=== PATIENT | female | born 1955 | race Two or more races ===

== ENCOUNTER 2017-03-14 16:26 | Inpatient (IN) | payer OTHER ==
[~2017-03-14] VITALS: Ht 121.9 cm; Wt 47.7 kg
[~2017-03-14 16:26] MED LIST: ASPI-482 PO; ASPI325T8 PO; ATOR20TA58 PO; CITA10TA8 PO; FERR-26 PO; HYDR-2758 PO; HYDR-923 PO; METH10TA2 PO; METO25TA4 PO; METO50TA6 PO; MIRT15TA3 PO; NITR0.4T22 SL; NYST100054 PO; OMEP20TA63 PO; OMEP40CA5 PO; PENI500T PO; RANI150T2 PO; SIMV10TA PO; SIMV10TA3 PO
--- NOTE | 2017-03-14 16:56 | PHYS DOC ---
Past Medical History Past Medical History: CAD, Hypertension Past Surgical History: Coronary Bypass Surgery Alcohol Use: None Drug Use: None Adult General Chief Complaint Chief Complaint: HYPERTENSION HPI HPI Patient is a 61 year old F who presents with nausea and vomiting and elevated blood pressure. Patient does not speak [place] Islander and family member is translating until we can find a ornamental plasterer helper. It appears last night she started having some increased nausea vomiting with elevated blood pressures with no fever. Patient denies any chest pain but does have a midline scar from what looks like her previous cardiac surgery. Patient denies any abdominal tenderness. It appears patient has no other complaints. Review of Systems Review of Systems Unable to obtain a review of systems secondary to patient's language barrier All other systems were reviewed and found to be within normal limits, except as documented in this note. Current Medications Current Medications Current Medications Medications (Trade) Dose Ordered Sig/Mily Start Time Stop Time Status Last Admin Dose Admin Clonidine HCl (Catapres) 0.2 mg 1X ONCE 03/14/17 17:00 03/14/17 17:01 DC 03/14/17 17:48 0.2 MG Ondansetron HCl (Zofran) 4 mg 1X ONCE 03/14/17 17:00 03/14/17 17:01 DC 03/14/17 18:11 4 MG Sodium Chloride 1,000 ml @ 1,000 mls/hr 1X ONCE 03/14/17 17:00 03/14/17 17:59 DC 03/14/17 18:11 1,000 MLS/HR Allergies Allergies Allergies Coded Allergies Type Severity Reaction Last Updated Verified No Known Drug Allergies 09/27/15 No Physical Exam Physical Exam GEN.: mod distress. Alert and oriented. HEENT: Head is normocephalic, atraumatic NECK: Supple. LUNGS: CTAB. HEART: RRR, S1, S2 present. Peripheral pulses intact ABDOMEN: Soft, nontender. Positive bowel sounds. EXTREMITIES: Without any cyanosis. NEUROLOGIC: Normal speech, normal tone PSYCHIATRIC: Normal affect, normal mood. SKIN: No ulcerations Current Patient Data Vital Signs Vital Signs Date Time Temp Pulse Resp B/P (MAP) Pulse Ox O2 Delivery O2 Flow Rate FiO2 03/14/17 17:48 87 191/93 03/14/17 17:15 98.4 18 91 Room Air 98.4 Lab Values Laboratory Tests Test 03/14/17 19:30 White Blood Count 6.2 x10^3/uL (4.0-11.0) Red Blood Count 3.80 x10^6/uL (3.50-5.40) Hemoglobin 10.4 g/dL (12.0-15.5) L Hematocrit 31.5 % (36.0-47.0) L Mean Corpuscular Volume 83 fL (79-100) Mean Corpuscular Hemoglobin 27 pg (25-35) Mean Corpuscular Hemoglobin Concent 33 g/dL (31-37) Red Cell Distribution Width 14.5 % (11.5-14.5) Platelet Count 213 x10^3/uL (140-400) Neutrophils (%) (Auto) 54 % (31-73) Lymphocytes (%) (Auto) 36 % (24-48) Monocytes (%) (Auto) 6 % (0-9) Eosinophils (%) (Auto) 3 % (0-3) Basophils (%) (Auto) 0 % (0-3) Neutrophils # (Auto) 3.4 x10^3uL (1.8-7.7) Lymphocytes # (Auto) 2.2 x10^3/uL (1.0-4.8) Monocytes # (Auto) 0.4 x10^3/uL (0.0-1.1) Eosinophils # (Auto) 0.2 x10^3/uL (0.0-0.7) Basophils # (Auto) 0.0 x10^3/uL (0.0-0.2) Sodium Level 142 mmol/L (136-145) Potassium Level 3.6 mmol/L (3.5-5.1) Chloride Level 107 mmol/L (98-107) Carbon Dioxide Level 26 mmol/L (21-32) Anion Gap 9 (6-14) Blood Urea Nitrogen 10 mg/dL (7-20) Creatinine 0.6 mg/dL (0.6-1.0) Estimated GFR (Cockcroft-Gault) 102.3 BUN/Creatinine Ratio 17 (6-20) Glucose Level 128 mg/dL (70-99) H Calcium Level 7.7 mg/dL (8.5-10.1) L Total Bilirubin 0.3 mg/dL (0.2-1.0) Aspartate Amino Transferase (AST) 16 U/L (15-37) Alanine Aminotransferase (ALT) 16 U/L (14-59) Alkaline Phosphatase 84 U/L (46-116) Troponin I Quantitative < 0.017 ng/mL (0.000-0.055) Total Protein 6.8 g/dL (6.4-8.2) Albumin 3.1 g/dL (3.4-5.0) L Albumin/Globulin Ratio 0.8 (1.0-1.7) L Lipase 78 U/L (73-393) Laboratory Tests 03/14/17 19:30 Laboratory Tests 03/14/17 19:30 EKG EKG 1652: EKG shows normal sinus rhythm rate of 68 no STEMI[] Radiology/Procedures Radiology/Procedures CT scan of the head NAD CTA chest pending[] Course & Med Decision Making Course & Med Decision Making Pertinent Labs and Imaging studies reviewed. (See chart for details) ED course: Patient was seen and examined emergency room CBC, CMP, CT scan of the head, troponin, EKG were ordered 1913: Patient's blood pressure dropped to 139/70 and her nausea and vomiting has resolved. Patient states she feels better. Awaiting lab results. 2004: Updated patient on lab results and now she is complaining of centralized chest pain and does not feel well and does not feel comfortable going home. Explained the patient we will admit her for further evaluation and management and obtain a CT of the chest to rule out PE or dissection 2014: Discussed CC/HP/PMH with Dr. Santizo and recommends admit [] MDM: After reviewing the chart, CC/HPI/PMH, physical exam, [lab results], [ radiological results], I do not believe the patient having acute DC, hypertensive emergency however since the patient's having persistent chest pain along with hypertensive urgency will omit the patient and obtain a CT scan of the chest to rule out dissection and PE. [] Dragon Disclaimer Dragon Disclaimer This electronic medical record was generated, in whole or in part, using a voice recognition dictation system. Departure Departure Impression: Primary Impression: Chest pain Additional Impression: Hypertension Disposition: 09 ADMITTED INPATIENT Admitting Physician: Melia Santizo Condition: STABLE Referrals: UNKNOWN PCP NAME (PCP) Problem Qualifiers JUSTINA GOODMAN DO Mar 14, 2017 16:56
[2017-03-14] MEDS ORDERED: IV NORMAL SALINE 1000ML BAG 1,000 ML IV ONE (17:00)
[2017-03-14] MEDS ORDERED: cloNIDine HCL 0.1 MG TABLET PO ONE (17:00)
[2017-03-14] MEDS ORDERED: ONDANSETRON PF 4 MG/2 ML VIAL. IV ONE (17:00)
--- NOTE | 2017-03-14 17:34 | RAD ---
Portable chest, 03/14/2017: History: Hypertension Comparison is made to a study from 09/24/2015. There has been a previous median sternotomy. The heart size and pulmonary vascularity are normal. Coronary artery calcifications are present. There is calcific plaquing the aorta. No pulmonary infiltrates are seen. There is no evidence of pleural fluid. IMPRESSION: No acute cardiopulmonary abnormality is detected.
--- NOTE | 2017-03-14 18:02 | RAD ---
CT head INDICATION: Nausea vomiting elevated blood pressure. TECHNIQUE: CT head without IV contrast COMPARISON: None FINDINGS: No pathologic extra-axial intra-axial fluid collection. No midline shift. No acute intracranial bleed. No focal loss of lares-white differentiation. The ventricles and basal cisterns are within normal limits. Orbits within normal limits. No calvarial lesions. Visualized paranasal sinuses and mastoid air cells are clear. IMPRESSION: No acute intracranial process on this noncontrast CT. Electronically signed by: Yovanny Sanchez DO (03/14/2017 5:59 PM) [facility]
[2017-03-14 19:33] LABS: BASO % 0 % (0-3); EOS % 3 % (0-3); HEMATOCRIT 31.5 % (36.0-47.0); HEMOGLOBIN 10.4 g/dL (12.0-15.5); LYMPH # 2.2 x10^3/uL (1.0-4.8); LYMPH % 36 % (24-48); MEAN CORPUSCULAR HEMOGLOBIN 27 pg (25-35); MEAN CORPUSCULAR HGB CONC 33 g/dL (31-37); MEAN CORPUSCULAR VOLUME 83 fL (79-100); MONO % 6 % (0-9); NEUT % 54 % (31-73); PLATELET COUNT 213 x10^3/uL (140-400); RED CELL DISTRIBUTION WIDTH 14.5 % (11.5-14.5); WHITE BLOOD COUNT 6.2 x10^3/uL (4.0-11.0)
[2017-03-14 19:45] LABS: CALCIUM 7.7 mg/dL (8.5-10.1); CREATININE 0.6 mg/dL (0.6-1.0); GFR 102.3; POTASSIUM 3.6 mmol/L (3.5-5.1)
[2017-03-14 19:52] LABS: ALBUMIN 3.1 g/dL (3.4-5.0); ALBUMIN/GLOBULIN RATIO 0.8 (1.0-1.7); TOTAL BILIRUBIN 0.3 mg/dL (0.2-1.0); TOTAL PROTEIN 6.8 g/dL (6.4-8.2)
[2017-03-14] MEDS ORDERED: MORPHINE SULFATE 4 MG/ML DISP.SYRIN. IV PRN (20:30)
[2017-03-14] MEDS ORDERED: ONDANSETRON PF 4 MG/2 ML VIAL. IV PRN (20:30)
[2017-03-14] MEDS ORDERED: CONTRAST GIVEN MC PRN (20:45)
[2017-03-14] MEDS ORDERED: IOHEXOL 300 MG/ML 100ML VIAL. IV ONE (20:45)
[2017-03-14] MEDS: NITROGLYCERIN SUBLINGUAL 0.4 MG BOTTLE OF 25. SL PRN ×2 (21:03→21:45)
--- NOTE | 2017-03-14 21:29 | PDOC1 ---
History and Physical Date of Admission Date of Admission DATE: 03/14/17 TIME: 21:28 Identification/Chief Complaint Chief Complaint nausea, then chest pain Problems: Source Source: Caregiver, Chart review, Patient History of Present Illness History of Present Illness ms. Meredith is a 61 year old F initially presented with nausea and vomiting and elevated blood pressure. She now complains of chest pain without pressure and without shortness of breath. Patient does not speak Kinyarwanda - I used the water plant operator phone for Maori with some difficulty, she kept repeating that she didn't want to do any more X-rays because they were going to kill her, she repeated this to me throught the water plant operator at least three times at length. It appears last night she started having some increased nausea vomiting with elevated blood pressures with no fever. chestpain is mid sternal, not reproducible, and better after pain meds I was unable to [place] at quantitative desc. of the pain Past Medical History Cardiovascular: CAD, HTN Pulmonary: COPD GI: GERD Rheumatologic: No pertinent hx Infectious disease: No pertinent hx ENT: No pertinent hx Renal/: No pertinent hx Endocrine: No pertinent hx Past Surgical History Past Surgical History: CABG Family History Family History: Family History Unknown Social History Smoke: No ALCOHOL: none Drugs: None Current Problem List Problem List Problems Medical Problems: (1) Chest pain Status: Acute (2) Hypertension Status: Acute Problems: Current Medications Current Medications Current Medications Clonidine HCl (Catapres) 0.2 mg 1X ONCE PO Last administered on 03/14/17 17: 48; Start 03/14/17 at 17:00; Stop 03/14/17 at 17:01; Status DC Ondansetron HCl (Zofran) 4 mg 1X ONCE IV Last administered on 03/14/17 18:11 ; Start 03/14/17 at 17:00; Stop 03/14/17 at 17:01; Status DC Sodium Chloride 1,000 ml @ 1,000 mls/hr 1X ONCE IV Last administered on 03/14 18:11; Start 03/14/17 at 17:00; Stop 03/14/17 at 17:59; Status DC Ondansetron HCl (Zofran) 4 mg PRN Q8HRS PRN IV NAUSEA/VOMITING; Start at 20:30; Stop 03/15/17 at 20:29 Morphine Sulfate 4 mg PRN Q2HR PRN IV PAIN; Start 03/14/17 at 20:30; Stop at 20:29 Nitroglycerin (Nitrostat) 0.4 mg PRN Q5MIN PRN SL CHEST PAIN Last administered on 03/14/17t 21:03; Start 03/14/17 at 20:30; Stop 03/15/17 at 20:29 Iohexol (Omnipaque 300 Mg/ml) 75 ml 1X ONCE IV ; Start 03/14/17 at 20:45; Stop 03/14/17 at 20:46; Status DC Info (Do NOT chart on this entry -- for MONITORING) 1 each PRN DAILY PRN MC SEE COMMENTS; Start 03/14/17 at 20:45; Stop 03/16/17 at 20:44 Active Scripts Active Reported Prilosec Otc (Omeprazole Magnesium) 20 Mg Tablet.dr 20 Mg PO DAILY Methadone Hcl 10 Mg Tablet 15 Mg PO DAILY Metoprolol Tartrate 25 Mg Tablet 12.5 Mg PO BID Metoprolol Tartrate 50 Mg Tablet 37.5 Mg PO BID Nystatin 100,000 Unit/1 Ml Oral.susp 5 Ml PO QID Aspir 81 (Aspirin) 81 Mg Tablet.dr 1 Tab PO DAILY Ranitidine Hcl 150 Mg Tablet 1 Tab PO BID Atorvastatin Calcium 20 Mg Tablet 1 Tab PO DAILY Mirtazapine 15 Mg Tablet 1 Tab PO QHS Hydrocodone-Apap 5-325 (Hydrocodone Bit/Acetaminophen) 1 Each Tablet 1 Each PO PRN Q6HRS PRN NITROGLYCERIN SubLingual (Nitroglycerin) 0.4 Mg Tab.subl 0.4 Mg SL PRN Q5MIN Allergies Allergies: Coded Allergies: No Known Drug Allergies (Unverified , 09/27/15) ROS General: YES: Fatigue, Malaise, Appetite PSYCHOLOGICAL ROS: YES: Depression, No: Anxiety, Behavioral Disorder, Concentration difficultie, Disorientation Eyes: Yes Other, No Blurry vision, No Decreased vision, No Double vision, No Dry eyes, No Excessive tearing HEENT: No: Visual Changes, Hearing change, Nasal congestion, Nasal discharge, Oral lesions Respiratory: YES: SOB with excertion, Tachypnea, No: Cough, Hemoptysis, Orthopnea, Pleuritic Pain, Shortness of breath, Wheezing Cardiovascular: yes Chest Pain, No Palpitations, No Orthopnea, No Paroxysmal Noc. Dyspnea, No Edema, No Lt Headedness, No Other Gastrointestinal: No Nausea, No Vomiting, No Abdominal Pain, No Diarrhea, No Constipation, No Melena, No Hematochezia, No Other Genitourinary: No Dysuria, No Frequency, No Incontinence, No Hematuria, No Retention, No Discharge, No Urgency, No Pain, No Flank Pain, No Other, No , No , No , No , No , No , No Musculoskeletal: Yes Joint Pain, Yes Joint Stiffness, No Gait Disturbance, No Joint Swelling, No Muscle Pain, No Muscular Weakness , No Pain In:, No Swelling In:, No Other Neurological: No Behavorial Changes, No Bowel/Bladder ControlChng, No Confusion , No Dizziness, No Gait Disturbance, No Headaches, No Impaired Coord/balance, No Memory Loss, No Numbness/Tingling, No Seizures Skin: No Dry Skin, No Hair Changes, No Lumps Physical Exam General: Alert, Cooperative, No acute distress HEENT: PERRLA, EOMI, Mucous membr. moist/pink Lungs: Clear to auscultation, Normal air movement Heart: no gallops, no murmurs Extremities: No clubbing, No edema, Normal pulses Neuro: Normal speech, Sensation intact, Cranial nerves 3-12 NL Psych/Mental Status: Mood NL Vitals Vitals Vital Signs Date Time Temp Pulse Resp B/P (MAP) Pulse Ox O2 Delivery O2 Flow Rate FiO2 03/14/17 21:03 64 150/84 03/14/17 20:29 15 98 03/14/17 17:15 98.4 Room Air 98.4 Labs Labs Laboratory Tests Test 03/14/17 19:30 White Blood Count 6.2 x10^3/uL (4.0-11.0) Red Blood Count 3.80 x10^6/uL (3.50-5.40) Hemoglobin 10.4 g/dL (12.0-15.5) Hematocrit 31.5 % (36.0-47.0) Mean Corpuscular Volume 83 fL (79-100) Mean Corpuscular Hemoglobin 27 pg (25-35) Mean Corpuscular Hemoglobin Concent 33 g/dL (31-37) Red Cell Distribution Width 14.5 % (11.5-14.5) Platelet Count 213 x10^3/uL (140-400) Neutrophils (%) (Auto) 54 % (31-73) Lymphocytes (%) (Auto) 36 % (24-48) Monocytes (%) (Auto) 6 % (0-9) Eosinophils (%) (Auto) 3 % (0-3) Basophils (%) (Auto) 0 % (0-3) Neutrophils # (Auto) 3.4 x10^3uL (1.8-7.7) Lymphocytes # (Auto) 2.2 x10^3/uL (1.0-4.8) Monocytes # (Auto) 0.4 x10^3/uL (0.0-1.1) Eosinophils # (Auto) 0.2 x10^3/uL (0.0-0.7) Basophils # (Auto) 0.0 x10^3/uL (0.0-0.2) Sodium Level 142 mmol/L (136-145) Potassium Level 3.6 mmol/L (3.5-5.1) Chloride Level 107 mmol/L (98-107) Carbon Dioxide Level 26 mmol/L (21-32) Anion Gap 9 (6-14) Blood Urea Nitrogen 10 mg/dL (7-20) Creatinine 0.6 mg/dL (0.6-1.0) Estimated GFR (Cockcroft-Gault) 102.3 BUN/Creatinine Ratio 17 (6-20) Glucose Level 128 mg/dL (70-99) Calcium Level 7.7 mg/dL (8.5-10.1) Total Bilirubin 0.3 mg/dL (0.2-1.0) Aspartate Amino Transf (AST/SGOT) 16 U/L (15-37) Alanine Aminotransferase (ALT/SGPT) 16 U/L (14-59) Alkaline Phosphatase 84 U/L (46-116) Troponin I Quantitative < 0.017 ng/mL (0.000-0.055) Total Protein 6.8 g/dL (6.4-8.2) Albumin 3.1 g/dL (3.4-5.0) Albumin/Globulin Ratio 0.8 (1.0-1.7) Lipase 78 U/L (73-393) Laboratory Tests Test 03/14/17 19:30 White Blood Count 6.2 x10^3/uL (4.0-11.0) Red Blood Count 3.80 x10^6/uL (3.50-5.40) Hemoglobin 10.4 g/dL (12.0-15.5) Hematocrit 31.5 % (36.0-47.0) Mean Corpuscular Volume 83 fL (79-100) Mean Corpuscular Hemoglobin 27 pg (25-35) Mean Corpuscular Hemoglobin Concent 33 g/dL (31-37) Red Cell Distribution Width 14.5 % (11.5-14.5) Platelet Count 213 x10^3/uL (140-400) Neutrophils (%) (Auto) 54 % (31-73) Lymphocytes (%) (Auto) 36 % (24-48) Monocytes (%) (Auto) 6 % (0-9) Eosinophils (%) (Auto) 3 % (0-3) Basophils (%) (Auto) 0 % (0-3) Neutrophils # (Auto) 3.4 x10^3uL (1.8-7.7) Lymphocytes # (Auto) 2.2 x10^3/uL (1.0-4.8) Monocytes # (Auto) 0.4 x10^3/uL (0.0-1.1) Eosinophils # (Auto) 0.2 x10^3/uL (0.0-0.7) Basophils # (Auto) 0.0 x10^3/uL (0.0-0.2) Sodium Level 142 mmol/L (136-145) Potassium Level 3.6 mmol/L (3.5-5.1) Chloride Level 107 mmol/L (98-107) Carbon Dioxide Level 26 mmol/L (21-32) Anion Gap 9 (6-14) Blood Urea Nitrogen 10 mg/dL (7-20) Creatinine 0.6 mg/dL (0.6-1.0) Estimated GFR (Cockcroft-Gault) 102.3 BUN/Creatinine Ratio 17 (6-20) Glucose Level 128 mg/dL (70-99) Calcium Level 7.7 mg/dL (8.5-10.1) Total Bilirubin 0.3 mg/dL (0.2-1.0) Aspartate Amino Transf (AST/SGOT) 16 U/L (15-37) Alanine Aminotransferase (ALT/SGPT) 16 U/L (14-59) Alkaline Phosphatase 84 U/L (46-116) Troponin I Quantitative < 0.017 ng/mL (0.000-0.055) Total Protein 6.8 g/dL (6.4-8.2) Albumin 3.1 g/dL (3.4-5.0) Albumin/Globulin Ratio 0.8 (1.0-1.7) Lipase 78 U/L (73-393) VTE Prophylaxis Ordered VTE Prophylaxis Devices: Yes VTE Pharmacological Prophylaxi: No Assessment/Plan Assessment/Plan accelerated hypertension chest pain, angina in known CAD, s/p CABG r/o ACS, consult CV hyperlipids GERD mild malnutrition, admit LUKASZ DIA MD Mar 14, 2017 21:29
[2017-03-14] MEDS ORDERED: HYDROcodone/APAP 5/325MG 1 TAB TABLET PO PRN (21:30)
[2017-03-14] MEDS ORDERED: LABETALOL 20 MG/4 ML DISP.SYRIN. IVP PRN (21:30)
[2017-03-14] MEDS ORDERED: NITROGLYCERIN SUBLINGUAL 0.4 MG BOTTLE OF 25. SL SCH (21:30)
--- NOTE | 2017-03-14 21:48 | RAD ---
CT ANGIOGRAPHY CHEST dated 03/14/2017 9:22 PM Indication: Hypertension, chest painchest pain, HTN, no priors, [id number] 75ml. Comparison: 05/21/2013 Technique: Contiguous axial imaging of the chest performed following the intravenous administration of 75 cc Isovue-370. Study performed as dedicated PE protocol with thin cut coronal MIPS 3-D reconstruction. One or more of the following individualized dose reduction techniques were utilized for this examination: 1. Automated exposure control 2. Adjustment of the mA and/or kV according to patient size 3. Use of iterative reconstruction technique Findings: Contrast bolus is adequate. Study is somewhat limited due to motion artifact. No evidence of central, lobar or segmental pulmonary embolus. Subsegmental branches are not well evaluated based on technique. Heart size mildly enlarged. Patient is status post median sternotomy and CABG procedure. No pericardial effusion. No mediastinal, hilar or axillary lymphadenopathy. Central airways are patent. Mild diffuse bronchial wall thickening. Mild upper zone emphysema. Patchy and linear opacities at both lung bases, likely atelectasis. No consolidation or pleural effusion. No pneumothorax. Limited images of upper abdomen unremarkable. Mild to moderate narrowing of the celiac artery origin. Bone windows show no acute findings. Mild multilevel spondylosis. IMPRESSION: 1. No evidence of central, lobar or segmental pulmonary embolus.. 2. Mild diffuse bronchial wall thickening. Consider acute or chronic bronchial inflammatory process. 3. Mild emphysema. Electronically signed by: Tremayne Fisher MD (03/14/2017 9:45 PM) [id number]
[2017-03-14] MEDS ORDERED: MIRTAZAPINE 15 MG TABLET PO SCH (22:00)
[2017-03-14 22:56] VITALS: BP 125/70
[2017-03-14 22:58] VITALS: BP 125/70
[2017-03-15 03:46] LABS: BASO % 0 % (0-3); EOS % 4 % (0-3); HEMATOCRIT 32.5 % (36.0-47.0); HEMOGLOBIN 10.6 g/dL (12.0-15.5); LYMPH # 2.6 x10^3/uL (1.0-4.8); LYMPH % 48 % (24-48); MEAN CORPUSCULAR HEMOGLOBIN 28 pg (25-35); MEAN CORPUSCULAR HGB CONC 33 g/dL (31-37); MEAN CORPUSCULAR VOLUME 84 fL (79-100); MONO % 7 % (0-9); NEUT % 41 % (31-73); PLATELET COUNT 199 x10^3/uL (140-400); RED BLOOD COUNT 3.87 x10^6/uL (3.50-5.40); RED CELL DISTRIBUTION WIDTH 14.6 % (11.5-14.5); WHITE BLOOD COUNT 5.5 x10^3/uL (4.0-11.0)
[2017-03-15 03:53] VITALS: BP 118/67
[2017-03-15 04:17] LABS: CHOLESTEROL/HDL RATIO 6.1
--- NOTE | 2017-03-15 06:34 | EKG ---
[facility] [address] [place] [address] Test Date: 2017-03-14 Test Time: 16:52:34 Pat Name: OUSMANE WANG Department: Room: 206 1 Gender: F Pattern Cleaner: SAL : 1955 Requested By: JUSTINA GOODMAN Order Number: [id number] Reading MD: Brad Deluca MD Measurements Intervals [place] Rate: 68 P: 31 [place]: 162 QRS: 31 QRSD: 78 T: 50 QT: 410 QTc: 441 Interpretive Statements SINUS RHYTHM NORMAL ECG RI6.01 Compared to ECG 09/25/2015 11:45:51 No significant changes Electronically Signed On 03-15-2017 13:06:03 FILL PLANT OPERATOR by Brad Deluca MD
[2017-03-15 06:52] LABS: CALCIUM 8.1 mg/dL (8.5-10.1); CREATININE 0.7 mg/dL (0.6-1.0); GFR 85.6; POTASSIUM 3.5 mmol/L (3.5-5.1)
[2017-03-15 07:00] VITALS: BP 104/53
[2017-03-15] MEDS ORDERED: PANTOPRAZOLE 40 MG TABLET.DR. PO SCH (07:30)
[2017-03-15] MEDS ORDERED: ASPIRIN ENTERIC COATED 81 MG TABLET.DR. PO SCH (09:00)
[2017-03-15] MEDS ORDERED: METOPROLOL TART IMMED RELEASE 25 MG TABLET. PO SCH (09:00)
[2017-03-15] MEDS ORDERED: NON FORMULARY ITEM (Ranitidine Hcl 1 TAB) PO SCH (09:00)
[2017-03-15] MEDS: NYSTATIN 100,000 UNITS/ML 5 ML ORAL.SUSP. SWSW SCH ×2 (09:00→13:32)
[2017-03-15] MEDS ORDERED: METHADONE 10 MG TABLET. PO SCH (09:00)
--- NOTE | 2017-03-15 09:11 | PDOC2 ---
MARYSE URIARTE RES HABILITATION ASSISTANT 03/15/17 0911: CARDIAC CONSULT DATE OF CONSULT Date of Consult DATE: 03/15/17 TIME: 09:08 REASON FOR CONSULT Reason for Consult: CP REFERRING PHYSICIAN Referring Physician: neetu SOURCE Source: Chart review, Patient HISTORY OF PRESENT ILLNESS HISTORY OF PRESENT ILLNESS This is a pleasant 61 yo female admitted for complains of rash, high BP, cough, and chest pain. Reports that she has been doing well till yesterday. She developed a pink body rash which is now absent also irritation to her throat and slight SOA and nonproductive cough and nausea and vomiting. After intractable coughing she started having chest discomofort which at this time reproducible with palpation. Her BP at home as well was 198/110. She has CAD with CABG in the past and appears to be compliant to medications as I saw her list. She sees a maxillofacial prosthodontist but the family and her could not tell me. Our conversation took a while to complete since I have to use the phone medical interpreter with Ukrainian language. Denies any palpitations, dizziness. She denies taking any new medications or any new food that she may have taken. Denies this ever happaening to her before. She is also known for reflux esophagitis which presently she is taking zantac. She could not explain why she is taking lortab and methadone and the son in law told me that the methadone is for her heart. Denies any fever chills, no falls, or any recent injury. PAST MEDICAL HISTORY Cardiovascular: CAD, HTN, Hyperlipidemia Pulmonary: COPD CENTRAL NERVOUS SYSTEM: Other (No pertinent history) GI: GERD Heme/Onc: No pertinent hx Hepatobiliary: No pertinent hx Psych: Anxiety Musculoskeletal: Osteoarthritis Rheumatologic: No pertinent hx Infectious disease: No pertinent hx ENT: No pertinent hx Renal/: No pertinent hx Endocrine: No pertinent hx Dermatology: Other (multiple body jewelries) PAST SURGICAL HISTORY Past Surgical History CABG with MCKEE to LAD, SVG to OM FAMILY HISTORY Family History: Family History Unknown SOCIAL HISTORY Smoke: <1 pack per day ALCOHOL: none Drugs: None Lives: with Family CURRENT MEDICATIONS CURRENT MEDICATIONS Current Medications Medications (Trade) Dose Ordered Sig/Mily Route PRN Reason Start Time Stop Time Status Last Admin Dose Admin Clonidine HCl (Catapres) 0.2 mg 1X ONCE PO 03/14/17 17:00 03/14/17 17:01 DC 11/16/17 17:48 Ondansetron HCl (Zofran) 4 mg 1X ONCE IV 03/14/17 17:00 03/14/17 17:01 DC 03/14/17 18:11 Sodium Chloride 1,000 ml @ 1,000 mls/hr 1X ONCE IV 03/14/17 17:00 03/14/17 17:59 DC 03/14/17 18:11 Nitroglycerin (Nitrostat) 0.4 mg PRN Q5MIN PRN SL CHEST PAIN 03/14/17 20:30 03/15/17 20:29 03/14/17 21:45 Iohexol (Omnipaque 300 Mg/ml) 75 ml 1X ONCE IV 03/14/17 20:45 03/14/17 20:46 DC 03/14/17 21:24 Mirtazapine (Remeron) 15 mg QHS PO 03/14/17 22:00 03/14/17 23:40 ALLERGIES ALLERGIES: Coded Allergies: No Known Drug Allergies (Unverified , 09/27/15) ROS Review of System 14 point ROS evaluated with pertinent positives noted per HPI PHYSICAL EXAM General: Alert, Oriented X3, Cooperative, No acute distress HEENT: Atraumatic, Mucous membr. moist/pink Lungs: Other (upper rhonchi) Abdomen: Soft, No tenderness Extremities: No cyanosis, No edema Skin: No breakdown, No significant lesion Neuro: Normal speech, Sensation intact Psych/Mental Status: Mental status NL, Mood NL MUSCULOSKELETAL: Osteoarthritic changes both hands VITALS VITALS Vital Signs Date Time Temp Pulse Resp B/P (MAP) Pulse Ox O2 Delivery O2 Flow Rate FiO2 03/15/17 07:00 98.5 64 16 104/53 (70) 99 Room Air 98.5 LABS Lab: Laboratory Tests Test 03/14/17 19:30 03/15/17 02:30 White Blood Count 6.2 x10^3/uL (4.0-11.0) 5.5 x10^3/uL (4.0-11.0) Red Blood Count 3.80 x10^6/uL (3.50-5.40) 3.87 x10^6/uL (3.50-5.40) Hemoglobin 10.4 g/dL (12.0-15.5) 10.6 g/dL (12.0-15.5) Hematocrit 31.5 % (36.0-47.0) 32.5 % (36.0-47.0) Mean Corpuscular Volume 83 fL (79-100) 84 fL (79-100) Mean Corpuscular Hemoglobin 27 pg (25-35) 28 pg (25-35) Mean Corpuscular Hemoglobin Concent 33 g/dL (31-37) 33 g/dL (31-37) Red Cell Distribution Width 14.5 % (11.5-14.5) 14.6 % (11.5-14.5) Platelet Count 213 x10^3/uL (140-400) 199 x10^3/uL (140-400) Neutrophils (%) (Auto) 54 % (31-73) 41 % (31-73) Lymphocytes (%) (Auto) 36 % (24-48) 48 % (24-48) Monocytes (%) (Auto) 6 % (0-9) 7 % (0-9) Eosinophils (%) (Auto) 3 % (0-3) 4 % (0-3) Basophils (%) (Auto) 0 % (0-3) 0 % (0-3) Neutrophils # (Auto) 3.4 x10^3uL (1.8-7.7) 2.3 x10^3uL (1.8-7.7) Lymphocytes # (Auto) 2.2 x10^3/uL (1.0-4.8) 2.6 x10^3/uL (1.0-4.8) Monocytes # (Auto) 0.4 x10^3/uL (0.0-1.1) 0.4 x10^3/uL (0.0-1.1) Eosinophils # (Auto) 0.2 x10^3/uL (0.0-0.7) 0.2 x10^3/uL (0.0-0.7) Basophils # (Auto) 0.0 x10^3/uL (0.0-0.2) 0.0 x10^3/uL (0.0-0.2) Sodium Level 142 mmol/L (136-145) 144 mmol/L (136-145) Potassium Level 3.6 mmol/L (3.5-5.1) 3.5 mmol/L (3.5-5.1) Chloride Level 107 mmol/L (98-107) 109 mmol/L (98-107) Carbon Dioxide Level 26 mmol/L (21-32) 26 mmol/L (21-32) Anion Gap 9 (6-14) 9 (6-14) Blood Urea Nitrogen 10 mg/dL (7-20) 8 mg/dL (7-20) Creatinine 0.6 mg/dL (0.6-1.0) 0.7 mg/dL (0.6-1.0) Estimated GFR (Cockcroft-Gault) 102.3 85.6 BUN/Creatinine Ratio 17 (6-20) Glucose Level 128 mg/dL (70-99) 112 mg/dL (70-99) Calcium Level 7.7 mg/dL (8.5-10.1) 8.1 mg/dL (8.5-10.1) Total Bilirubin 0.3 mg/dL (0.2-1.0) Aspartate Amino Transf (AST/SGOT) 16 U/L (15-37) Alanine Aminotransferase (ALT/SGPT) 16 U/L (14-59) Alkaline Phosphatase 84 U/L (46-116) Troponin I Quantitative < 0.017 ng/mL (0.000-0.055) < 0.017 ng/mL (0.000-0.055) Total Protein 6.8 g/dL (6.4-8.2) Albumin 3.1 g/dL (3.4-5.0) Albumin/Globulin Ratio 0.8 (1.0-1.7) Lipase 78 U/L (73-393) Triglycerides Level 195 mg/dL (0-150) Cholesterol Level 184 mg/dL (0-200) LDL Cholesterol, Calculated 115 mg/dL (0-100) VLDL Cholesterol, Calculated 39 mg/dL (0-40) Non-HDL Cholesterol Calculated 154 mg/dL (0-129) HDL Cholesterol 30 mg/dL (40-60) Cholesterol/HDL Ratio 6.1 STRESS TEST STRESS TEST Conclusion 1. No EKG evidence of stress induced ischemia. 2. Nuclear imaging shows no reversible ischemia or infarct. 3. Normal LV systolic function with an ejection fraction of greater than 70%. 4. Low risk Lexiscan stress test. DATE: 09/26/15 1442 ASSESSMENT/PLAN ASSESSMENT/PLAN 1. Atypical CP: noncardiac. MSK related. Recent MPI as noted above 2. Possible allergic reaction/angioedema: unknown trigger. Body rash is now absent. Defer to PCP 3. CAD: CABG 2012 4. COPD with possible acute bronchitis possibly triggered by allergic reaction. 5. Accelerated HTN 6. HLP 7. GERD with past reflux esophagitis; she takes zantac Recommendations 1. Continue with secondary prevention except lisinopril (possible delayed reaction). Increase metoprolol and start on norvasc. 2. If no recent TTE then will rosa one. No further w/u otherwise 3. Antihistamines/steroids per PCP. 4. Follow up with maxillofacial prosthodontist. Duration of evaluation 45 minutes Problems: CAROL FONTANA MD 03/18/17 0058: CARDIAC CONSULT ALLERGIES ALLERGIES: Coded Allergies: No Known Drug Allergies (Unverified , 09/27/15) ASSESSMENT/PLAN ASSESSMENT/PLAN Late entry for 03/15/2017. Pt. seen and examined. Agree with above FLORAL ARTIST note. Supportive care. Problems: MARYSE URIARTE RES HABILITATION ASSISTANT Mar 15, 2017 09:11 CAROL FONTANA MD Mar 18, 2017 00:58
[2017-03-15 10:48] VITALS: BP 145/67
[2017-03-15] MEDS ORDERED: amLODIPine BESYLATE 5 MG TABLET PO SCH (11:30)
[2017-03-15] MEDS ORDERED: LISI10TA2 PO (13:42)
[2017-03-15] MEDS ORDERED: CLOP75TA PO (13:42)
[2017-03-15] MEDS ORDERED: AMLO5TAB2 PO (14:25)
[2017-03-15 14:37] VITALS: BP 114/61
[2017-03-15] MEDS ORDERED: ATORVASTATIN CALCIUM 20 MG TABLET PO SCH (21:00)
--- NOTE | 2017-03-28 18:53 | PDOC3 ---
Discharge Summary Visit Information Date of Admission: Mar 14, 2017 Date of Discharge: Mar 15, 2017 Admitting Diagnosis: chest pain Final Diagnosis 1. Atypical CP: costochondritis 2. Possible allergic reaction/angioedema: stop lisinopril 3. Hx CAD: CABG 2012 4. COPD with acute bronchitis due to allergy 5. Accelerated HTN on admit 6. GERD Problems Medical Problems: (1) Chest pain Status: Acute (2) Hypertension Status: Acute Brief Hospital Course Allergies Allergies Coded Allergies Type Severity Reaction Last Updated Verified No Known Drug Allergies 09/27/15 No Brief Hospital Course Ms. Meredith is a 61 old emirati, admit with chest pain, and wheeze possible allergic reaction to lisinopril, med stopped, CV consult, r./o ACS done Increase metoprolol and start on norvasc. Follow up with package sorter. GERD stable Discharge Information Condition at Discharge: Improved Follow Up: Weeks Disposition/Orders: D/C to Home Scheduled Amlodipine Besylate (Amlodipine Besylate), 5 MG PO DAILY, (Reported) Aspirin (Aspir 81), 1 TAB PO DAILY, (Reported) Atorvastatin Calcium (Atorvastatin Calcium), 1 TAB PO DAILY, (Reported) Clopidogrel Bisulfate (Clopidogrel), 1 TAB PO DAILY, (Reported) Methadone Hcl (Methadone Hcl), 15 MG PO DAILY, (Reported) Metoprolol Tartrate (Metoprolol Tartrate), 37.5 MG PO BID, (Reported) Mirtazapine (Mirtazapine), 1 TAB PO QHS, (Reported) Nitroglycerin (NITROGLYCERIN SubLingual), 0.4 MG SL PRN Q5MIN, (Reported) Nystatin (Nystatin), 5 ML PO QID, (Reported) Omeprazole Magnesium (Prilosec Otc), 20 MG PO DAILY, (Reported) Ranitidine Hcl (Ranitidine Hcl), 1 TAB PO BID, (Reported) Scheduled PRN Hydrocodone Bit/Acetaminophen (Hydrocodone-Apap 5-325 ), 1 EACH PO PRN Q6HRS PRN for PAIN, (Reported) LUKASZ DIA MD Mar 28, 2017 18:53
== END 2017-03-15 16:35 | disposition home or self-care (01) | DRG 202 ==
LOC: ER 16:26 → 2 NORTH 20:08
PROVIDERS: ADMIT Internal Medicine; ATTEND Internal Medicine
DX: J20.9 Acute bronchitis, unspecified (principal); E44.1 Mild protein-calorie malnutrition; J44.0 Chronic obstructive pulmonary disease with (acute) lower respiratory infection; T78.3XXA Angioneurotic edema, initial encounter; M94.0 Chondrocostal junction syndrome [Tietze]; I25.119 Atherosclerotic heart disease of native coronary artery with unspecified angina pectoris; R07.89 Other chest pain; E78.5 Hyperlipidemia, unspecified; F17.210 Nicotine dependence, cigarettes, uncomplicated; I10 Essential (primary) hypertension; K21.0 Gastro-esophageal reflux disease with esophagitis; J44.9 Chronic obstructive pulmonary disease, unspecified; F41.9 Anxiety disorder, unspecified; M19.90 Unspecified osteoarthritis, unspecified site; Z68.32 Body mass index [BMI] 32.0-32.9, adult
CPT/HCPCS: 36415; 70450; 71010; 71275; 80048; 80053; 80061; 83690; 84484; 85025; 93005; 96361; 96374; J2405; J7030; Q9967; 99285-25

== ENCOUNTER 2019-12-10 13:06 | Emergency (ER) | payer MEDICAID ==
[~2019-12-10] VITALS: Ht 152.4 cm; Wt 56.8 kg
[~2019-12-10 13:06] MED LIST changes: +AMLO5TAB10 PO; +AMOX1TAB61 PO; +CARV12.511 PO; +CLOP75TA PO; -FERR-26 PO; +FERR325T14 PO; +FURO-68 PO; -HYDR-2758 PO; +HYDR-2761 PO; +LISI10TA2 PO; +OMEP40CA45 PO; -OMEP40CA5 PO; +POTA20TA4 PO; +SIMV10TA15 PO; -SIMV10TA3 PO
[2019-12-10 14:15] LABS: BASO # 0.1 x10^3/uL (0.0-0.2); BASO % 1 % (0-3); EOS % 1 % (0-3); HEMOGLOBIN 14.6 g/dL (12.0-15.5); LYMPH # 3.1 x10^3/uL (1.0-4.8); LYMPH % 36 % (24-48); MEAN CORPUSCULAR HEMOGLOBIN 30 pg (25-35); MEAN CORPUSCULAR HGB CONC 34 g/dL (31-37); MEAN CORPUSCULAR VOLUME 89 fL (79-100); MONO # 0.4 x10^3/uL (0.0-1.1); MONO % 5 % (0-9); NEUT # 5.1 x10^3/uL (1.8-7.7); NEUT % 58 % (31-73); PLATELET COUNT 258 x10^3/uL (140-400); RED BLOOD COUNT 4.85 x10^6/uL (3.50-5.40); RED CELL DISTRIBUTION WIDTH 15.2 % (11.5-14.5); WHITE BLOOD COUNT 8.7 x10^3/uL (4.0-11.0)
[2019-12-10] MEDS ORDERED: METHADONE 5 MG TABLET. PO ONE (14:15)
[2019-12-10 14:23] LABS: CALCIUM 8.9 mg/dL (8.5-10.1); CREATININE 0.9 mg/dL (0.6-1.0); GFR 63.4; POTASSIUM 3.7 mmol/L (3.5-5.1)
--- NOTE | 2019-12-10 14:28 | RAD ---
EXAM: CHEST 1 VIEW History: Shortness of breath COMPARISON: 09/17/2019 TECHNIQUE: Single portable radiograph of the chest FINDINGS: The cardiac silhouette is unremarkable. Prominent bilateral interstitial lung markings. The costophrenic sulci are clear and well demarcated. IMPRESSION: Mild prominent bilateral interstitial lung markings likely mild congestive changes or interstitial infiltrates. Electronically signed by: Gerald Sanders MD (12/10/2019 2:25 PM) [id number]
[2019-12-10 14:30] LABS: ALBUMIN 4.3 g/dL (3.4-5.0); ALBUMIN/GLOBULIN RATIO 0.9 (1.0-1.7); TOTAL BILIRUBIN 0.4 mg/dL (0.2-1.0)
--- NOTE | 2019-12-10 14:50 | PHYS DOC ---
Past Medical History Past Medical History: CAD, Hypertension, Unknown Additional Past Medical Histor: cabg, Past Surgical History: Coronary Bypass Surgery Additional Past Surgical Histo: CABG was done 2 months ago here, Smoking Status: Current Every Day Smoker Alcohol Use: None Drug Use: None General Adult EDM: Chief Complaint: SHORTNESS OF BREATH HPI: HPI: Patient is a 64 year old female who presents with chest pain and body aches. History is significantly limited due to the language. Language line was used to help obtain history. Patient states that she has chest pain where she had chest surgery at. She denies any shortness of breath. She states that her bones feel like they are going to break. She is never had anything like this previously. She is typically on methadone but has not had methadone for 2 days. She denies any cough, shortness of breath, nausea, vomiting, diarrhea. Review of Systems: Review of Systems: General: Denies fever, chills, sweats, fatigue Eyes: Denies drainage, blurred vision, eye redness HENT: Denies rhinorrhea, sore throat, earache Respiratory: Denies cough, shortness of breath, wheezing Cardiac: Denies edema, palpitations. Reports chest pain GI: Denies abdominal pain, Nausea, vomiting MSK: Denies back pain, neck pain reports diffuse body aches Skin: Denies rash, jaundice Neuro: Denies headache, dizziness Psychiatric: Denies SI/HI Heart Score: Risk Factors: Risk Factors: DM, Current or recent (<one month) smoker, HTN, HLP, family history of CAD, obesity. Risk Scores: Score 0 - 3: 2.5% MACE over next 6 weeks - Discharge Home Score 4 - 6: 20.3% MACE over next 6 weeks - Admit for Clinical Observation Score 7 - 10: 72.7% MACE over next 6 weeks - Early Invasive Strategies Current Medications: Current Medications Medications (Trade) Dose Ordered Sig/Mily Start Time Stop Time Status Last Admin Dose Admin Methadone HCl (Dolophine) 5 mg 1X ONCE 12/10/19 14:15 12/10/19 14:16 DC 12/10/19 14:19 5 MG Allergies: Allergies: Allergies Coded Allergies Type Severity Reaction Last Updated Verified lisinopril Allergy Intermediate 10/30/18 Yes simvastatin Allergy Intermediate 10/30/18 Yes Physical Exam: PE: General: Awake, alert, NAD. Well Nourished, well hydrated. Cooperative HEENT: Atraumatic, EOMI, PERRL, airway patent, moist oral mucosa Neck: Supple, trachea midline Respiratory: CTA bilaterally, normal effort, no wheezing/crackles CV: RRR, no murmur, cap refill <2 GI: Soft, nondistended, nontender, no masses MSK: No obvious deformities Skin: Warm, dry, intact Neuro: A&O x3, speech NL, sensory and motor grossly intact, no focal deficits Psych: Normal affect, normal mood, not suicidal or homicidal Current Patient Data: Labs: Laboratory Tests Test 12/10/19 13:40 White Blood Count 8.7 x10^3/uL (4.0-11.0) Red Blood Count 4.85 x10^6/uL (3.50-5.40) Hemoglobin 14.6 g/dL (12.0-15.5) Hematocrit 43.0 % (36.0-47.0) Mean Corpuscular Volume 89 fL (79-100) Mean Corpuscular Hemoglobin 30 pg (25-35) Mean Corpuscular Hemoglobin Concent 34 g/dL (31-37) Red Cell Distribution Width 15.2 % (11.5-14.5) H Platelet Count 258 x10^3/uL (140-400) Neutrophils (%) (Auto) 58 % (31-73) Lymphocytes (%) (Auto) 36 % (24-48) Monocytes (%) (Auto) 5 % (0-9) Eosinophils (%) (Auto) 1 % (0-3) Basophils (%) (Auto) 1 % (0-3) Neutrophils # (Auto) 5.1 x10^3/uL (1.8-7.7) Lymphocytes # (Auto) 3.1 x10^3/uL (1.0-4.8) Monocytes # (Auto) 0.4 x10^3/uL (0.0-1.1) Eosinophils # (Auto) 0.0 x10^3/uL (0.0-0.7) Basophils # (Auto) 0.1 x10^3/uL (0.0-0.2) Sodium Level 141 mmol/L (136-145) Potassium Level 3.7 mmol/L (3.5-5.1) Chloride Level 101 mmol/L (98-107) Carbon Dioxide Level 28 mmol/L (21-32) Anion Gap 12 (6-14) Blood Urea Nitrogen 13 mg/dL (7-20) Creatinine 0.9 mg/dL (0.6-1.0) Estimated GFR (Cockcroft-Gault) 63.4 BUN/Creatinine Ratio 14 (6-20) Glucose Level 169 mg/dL (70-99) H Calcium Level 8.9 mg/dL (8.5-10.1) Total Bilirubin 0.4 mg/dL (0.2-1.0) Aspartate Amino Transferase (AST) 21 U/L (15-37) Alanine Aminotransferase (ALT) 27 U/L (14-59) Alkaline Phosphatase 94 U/L (46-116) Creatine Kinase 103 U/L (26-192) Troponin I Quantitative < 0.017 ng/mL (0.000-0.055) C-Reactive Protein, Quantitative 2.0 mg/L (0-3.3) EI-Wlz-C-Type Natriuretic Peptide 201 pg/mL (0-124) H Total Protein 9.0 g/dL (6.4-8.2) H Albumin 4.3 g/dL (3.4-5.0) Albumin/Globulin Ratio 0.9 (1.0-1.7) L Laboratory Tests 12/10/19 13:40 Laboratory Tests 12/10/19 13:40 Vital Signs: Vital Signs Date Time Temp Pulse Resp B/P (MAP) Pulse Ox O2 Delivery O2 Flow Rate FiO2 12/10/19 13:53 98.4 84 22 152/73 (99) 100 Room Air 98.4 EKG: EKG: [] Radiology/Procedures: Radiology/Procedures: [] Course & Med Decision Making: Course & Med Decision Making Pertinent Labs and Imaging studies reviewed. (See chart for details) Patient is a 64-year-old female who presents to the emergency room complaining of body aches and chest pain. At this time it is unclear if the patient's symptoms are due to methadone withdrawal, other causes of chest pain, novel coronavirus 19. Patient refused a coronavirus test. Chest x-ray, CBC, CMP, troponin were ordered to evaluate patient's symptoms. Patient was given methadone here in the emergency room to see if her symptoms would resolve. Symptoms resolved after she was given her methadone. This is likely withdrawal. It is possible that she could also have coronavirus. We will place her on quarantine. Patient's test results and vitals while in the ED were fully reviewed and discussed with the patient. Patient is stable and at this time does not need admission to the hospital. We have discussed strict return precautions and the importance of following up with their Primary Care Physician. Patient stated understanding and was given an opportunity to ask any questions. Patient is in agreement with plan. Jomar Disclaimer: Jomar Disclaimer: This electronic medical record was generated, in whole or in part, using a voice recognition dictation system. PPE Use: Full PPE with N95 mask or PAPR: Yes Departure Departure Impression: Primary Impression: Chest pain Additional Impression: Methadone withdrawal Disposition: HOME, SELF-CARE Condition: STABLE Referrals: NERI HAMILTON MD (PCP) Patient Instructions: Chest Pain (Nonspecific), Methadone tablets Additional Instructions: Thank you for visiting [facility]. We appreciate you trusting us with your care. If any additional problems come up please don't hesitate to return to visit us. Follow up with your primary care provider so they can plan additional care if needed and know about the problem that you had today. If symptoms worsen come back to the Emergency Department. Any concerning symptoms that start such as chest pain, shortness of air, weakness or numbness on one side of the body, running high fevers or any other concerning symptoms return to the ER. You have a viral syndrome which may include symptoms like muscle aches, fevers, chills, runny nose, cough, sneezing, sore throat, nausea, vomiting, or diarrhea. One of the potential viruses that you may have is SARS-CoV-2, the virus that causes COVID-19, also known as the Coronavirus. You are just as likely to have a different viral infection such as the common cold, flu, etc. Most patients with the Coronavirus have mild symptoms and recover on their own. Resting, staying hydrated, and sleep based on known cases can be helpful. As of todays visit, you are well enough to go home and treat your symptoms with oral fluids and over the counter medications. Coronavirus testing is not performed on most people with mild symptoms who are being discharged from the emergency department. If Coronavirus testing was performed today the results will not be available for possibly up to 3-4 days. If your result is positive you will be contacted. Please follow the following precautions at home: 1. Stay home except to get medical care. 2. As advised by the CDC, we recommend that you stay in your home and minimize contact with other people. We do not want you to spread the infection. 3. Those who are older or have significant medical issues may have more severe symptoms from this infection. We recommend self-isolation FOR AT LEAST 7 DAYS after your 1st day of symptoms. AFTER you feel better please wait AT LEAST ANOTHER WEEK before returning to regular activities and being around other people. 4. IF you become sicker and have difficulty breathing, chest pain, are unable to eat/drink, severe vomiting, diarrhea, or weakness you may need to return to the Emergency Department. 5. You should restrict activities outside of your home, except for getting medical care. DO NOT go to work, school, or public areas. Avoid using public transportation, ride sharing, or taxis. 6. Separate yourself from other people in your home. You should use a separate bathroom if possible. 7. Avoid sharing personal household items such as dishes, cups, eating utensils, towels, etc. 8. Clean all high touch surfaces every day (door knobs, counter tops, etc). Use a household cleaning spray or wipe per label instructions. 9. Clean your hands often. Wash your hands with soap and water for at least 20 seconds. 10. Cover your mouth and nose when you cough or sneeze. 11. Throw used tissues in the trash and immediately wash your hands. For additional resources please visit the CDC website or the [facility] ([phone]), you may also call 211 for further information. Scripts Amoxicillin (AMOXICILLIN) 500 Mg Capsule 1 CAP PO Q8HRS for infection, #30 CAP Prov: MARIA ESTHER RODRIGUEZ MD 12/10/19 Justicifation of Admission Dx: Justifications for Admission: Justification of Admission Dx: Yes MARIA ESTHER RODRIGUEZ MD Dec 10, 2019 14:50
[2019-12-10] MEDS ORDERED: AMOX500C PO (17:33)
[2019-12-10 18:04] VITALS: BP 144/70
--- NOTE | 2019-12-11 16:07 | EKG ---
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
== END 2019-12-10 18:55 | disposition home or self-care (01) ==
LOC: ER 13:06
DX: R07.89 Other chest pain (principal); F11.23 Opioid dependence with withdrawal; M79.10 Myalgia, unspecified site; R06.02 Shortness of breath; I10 Essential (primary) hypertension; F17.200 Nicotine dependence, unspecified, uncomplicated; I25.10 Atherosclerotic heart disease of native coronary artery without angina pectoris; Z95.1 Presence of aortocoronary bypass graft; Z88.8 Allergy status to other drugs, medicaments and biological substances
CPT/HCPCS: 36415; 71045; 80053; 82550; 83880; 84484; 85025; 86140; 93005; 99285-25

== ENCOUNTER 2020-02-12 11:53 | Inpatient (IN) | payer MEDICAID ==
[~2020-02-12] VITALS: Ht 152.4 cm; Wt 54.0 kg
[~2020-02-12 11:53] MED LIST changes: +AMLO-186 PO; -AMLO5TAB10 PO; +AMOX500C PO
[2020-02-12 13:06] LABS: BASO % 0 % (0-3); EOS # 0.1 x10^3/uL (0.0-0.7); EOS % 1 % (0-3); HEMOGLOBIN 12.8 g/dL (12.0-15.5); LYMPH # 0.9 x10^3/uL (1.0-4.8); LYMPH % 10 % (24-48); MEAN CORPUSCULAR HEMOGLOBIN 30 pg (25-35); MEAN CORPUSCULAR HGB CONC 34 g/dL (31-37); MEAN CORPUSCULAR VOLUME 88 fL (79-100); MONO # 0.6 x10^3/uL (0.0-1.1); MONO % 6 % (0-9); NEUT # 7.7 x10^3/uL (1.8-7.7); NEUT % 83 % (31-73); PLATELET COUNT 195 x10^3/uL (140-400); RED BLOOD COUNT 4.31 x10^6/uL (3.50-5.40); RED CELL DISTRIBUTION WIDTH 14.3 % (11.5-14.5); WHITE BLOOD COUNT 9.3 x10^3/uL (4.0-11.0)
[2020-02-12 13:20] LABS: CALCIUM 8.6 mg/dL (8.5-10.1); CREATININE 0.7 mg/dL (0.6-1.0); GFR 84.8; POTASSIUM 4.2 mmol/L (3.5-5.1)
[2020-02-12 13:28] LABS: ALBUMIN 3.9 g/dL (3.4-5.0); TOTAL BILIRUBIN 0.4 mg/dL (0.2-1.0); TOTAL PROTEIN 7.7 g/dL (6.4-8.2)
--- NOTE | 2020-02-12 13:35 | RAD ---
Examination: CHEST AP ONLY History: Reason: cough, covid? Comparison: 12/10/2019. Findings: AP portable upright frontal view of the chest was obtained. Sternal wires and mediastinal clips are present. The cardiomediastinal silhouette is normal. No focal consolidation. Interstitial thickening of the lung garzon similar to prior exam diffusely.. There is no pneumothorax. No pleural effusion is appreciated. No acute bone abnormality. IMPRESSION: No acute cardiopulmonary process. Electronically signed by: José Manuel Wolf MD (02/12/2020 1:32 PM) [facility]
--- NOTE | 2020-02-12 14:06 | PHYS DOC ---
Past Medical History Past Medical History: CAD, High Cholesterol, Hypertension, Unknown Additional Past Medical Histor: SEASONAL ALLERGIES Past Surgical History: Coronary Bypass Surgery Additional Past Surgical Histo: CABG was done 2 months ago here, Smoking Status: Current Every Day Smoker Alcohol Use: None Drug Use: None General Adult EDM: Chief Complaint: SHORTNESS OF BREATH HPI: HPI: Patient is a 64-year-old female who presents to the emergency room complaining of cough, fever, shortness of breath that started this morning. She states she felt normal yesterday. She states she has significant shortness of breath anytime she tries to get up and walk around. She is unsure if she has been exposed to anyone who is ill. She has not had gordillo virus previously. She has never had pneumonia before. Review of Systems: Review of Systems: General: Reports fever, chills, sweats, fatigue Eyes: Denies drainage, blurred vision, eye redness HENT: Denies rhinorrhea, sore throat, earache Respiratory: Reports cough, shortness of breath, wheezing Cardiac: Denies edema, palpitations, chest pain GI: Denies abdominal pain, Nausea, vomiting MSK: Denies back pain, neck pain Skin: Denies rash, jaundice Neuro: Denies headache, dizziness Psychiatric: Denies SI/HI Heart Score: Risk Factors: Risk Factors: DM, Current or recent (<one month) smoker, HTN, HLP, family history of CAD, obesity. Risk Scores: Score 0 - 3: 2.5% MACE over next 6 weeks - Discharge Home Score 4 - 6: 20.3% MACE over next 6 weeks - Admit for Clinical Observation Score 7 - 10: 72.7% MACE over next 6 weeks - Early Invasive Strategies Allergies: Allergies: Allergies Coded Allergies Type Severity Reaction Last Updated Verified lisinopril Allergy Intermediate 10/30/18 Yes simvastatin Allergy Intermediate 10/30/18 Yes Physical Exam: PE: General: Awake, alert, NAD. Well Nourished, well hydrated. Cooperative HEENT: Atraumatic, EOMI, PERRL, airway patent, moist oral mucosa Neck: Supple, trachea midline Respiratory: CTA bilaterally, normal effort, no wheezing/crackles CV: RRR, no murmur, cap refill <2 GI: Soft, nondistended, nontender, no masses MSK: No obvious deformities Skin: Warm, dry, intact Neuro: A&O x3, speech NL, sensory and motor grossly intact, no focal deficits Psych: Normal affect, normal mood, not suicidal or homicidal Current Patient Data: Labs: Laboratory Tests Test 02/12/20 12:50 White Blood Count 9.3 x10^3/uL (4.0-11.0) Red Blood Count 4.31 x10^6/uL (3.50-5.40) Hemoglobin 12.8 g/dL (12.0-15.5) Hematocrit 38.0 % (36.0-47.0) Mean Corpuscular Volume 88 fL (79-100) Mean Corpuscular Hemoglobin 30 pg (25-35) Mean Corpuscular Hemoglobin Concent 34 g/dL (31-37) Red Cell Distribution Width 14.3 % (11.5-14.5) Platelet Count 195 x10^3/uL (140-400) Neutrophils (%) (Auto) 83 % (31-73) H Lymphocytes (%) (Auto) 10 % (24-48) L Monocytes (%) (Auto) 6 % (0-9) Eosinophils (%) (Auto) 1 % (0-3) Basophils (%) (Auto) 0 % (0-3) Neutrophils # (Auto) 7.7 x10^3/uL (1.8-7.7) Lymphocytes # (Auto) 0.9 x10^3/uL (1.0-4.8) L Monocytes # (Auto) 0.6 x10^3/uL (0.0-1.1) Eosinophils # (Auto) 0.1 x10^3/uL (0.0-0.7) Basophils # (Auto) 0.0 x10^3/uL (0.0-0.2) D-Dimer (Alisa) < 0.27 ug/mlFEU Sodium Level 139 mmol/L (136-145) Potassium Level 4.2 mmol/L (3.5-5.1) Chloride Level 102 mmol/L (98-107) Carbon Dioxide Level 29 mmol/L (21-32) Anion Gap 8 (6-14) Blood Urea Nitrogen 12 mg/dL (7-20) Creatinine 0.7 mg/dL (0.6-1.0) Estimated GFR (Cockcroft-Gault) 84.8 BUN/Creatinine Ratio 17 (6-20) Glucose Level 99 mg/dL (70-99) Calcium Level 8.6 mg/dL (8.5-10.1) Total Bilirubin 0.4 mg/dL (0.2-1.0) Aspartate Amino Transferase (AST) 19 U/L (15-37) Alanine Aminotransferase (ALT) 22 U/L (14-59) Alkaline Phosphatase 88 U/L (46-116) Lactate Dehydrogenase 207 U/L (81-234) Creatine Kinase 134 U/L (26-192) Troponin I Quantitative < 0.017 ng/mL (0.000-0.055) C-Reactive Protein, Quantitative 18.0 mg/L (0-3.3) H VE-Lbs-W-Type Natriuretic Peptide 655 pg/mL (0-124) H Total Protein 7.7 g/dL (6.4-8.2) Albumin 3.9 g/dL (3.4-5.0) Albumin/Globulin Ratio 1.0 (1.0-1.7) Laboratory Tests 02/12/20 12:50 Laboratory Tests 02/12/20 12:50 Vital Signs: Vital Signs Date Time Temp Pulse Resp B/P (MAP) Pulse Ox O2 Delivery O2 Flow Rate FiO2 02/12/20 12:25 100.3 93 20 161/80 (107) 99 2.0 100.3 02/12/20 12:08 Room Air EKG: EKG: [] Radiology/Procedures: Radiology/Procedures: [] Course & Med Decision Making: Course & Med Decision Making Pertinent Labs and Imaging studies reviewed. (See chart for details) Patient is a 64-year-old female who presents to the emergency room with shortness of breath, cough, fever. At this time there is concern for the novel coronavirus 19. Patient's risk factors include age, cardiovascular disease. Risk stratifying work-up was ordered including chest x-ray, d-dimer, CPK, CRP, LDH, troponin, ferritin, CBC, CMP. At this time, patients labs, vitals, and exam are significant for hypoxia. Due to patient's risk and clinical picture, they will need to be admitted at this time. IVFs will be limited due to concern for fluid overload in COVID-19 patients. Patient will be given empiric antibiotics due to infiltrates and risk of co-bacterial infection. Further treatment will be dictated by the inpatient team. Dragon Disclaimer: Dragon Disclaimer: This electronic medical record was generated, in whole or in part, using a voice recognition dictation system. Departure Departure Impression: Primary Impression: Suspected 2019 novel coronavirus infection Disposition: 09 ADMITTED INPT THIS HOSP Condition: STABLE Referrals: NERI HAMILTON MD (PCP) MARIA ESTHER RODRIGUEZ MD Feb 12, 2020 14:06
[2020-02-12] MEDS ORDERED: ONDANSETRON PF 4 MG/2 ML VIAL. IV PRN (14:45)
[2020-02-12] MEDS ORDERED: DOCUSATE SODIUM 100 MG CAPSULE. PO PRN (14:45)
--- NOTE | 2020-02-12 14:48 | PDOC1 ---
History and Physical Date of Admission Date of Admission DATE: 02/12/20 TIME: 14:33 Identification/Chief Complaint Chief Complaint Shortness of breath Source Source: Caregiver, Chart review, Patient History of Present Illness History of Present Illness Ms Meredith is a 64yo F belgian speaking only w/ PMHx CAD s/p CABG, HTN, chronic pain, chronic bronchitis, smoker who presented to ED c/o shortness of breath, sneezing, cough, chills, and subjective fever. Noted with temp of 100.3 F in ED. 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 Blood cultures pending. She complains of being very tired. Not improved with breathing treatment. She is also confused, the director advertising continually asking her to repeat herself and noting she does not make sense WBC 9.3, Hb 12.8, platelets 195, NA 139, K4.2, BUN 12, CR 0.7, glucose 99, CRP 18, BNP 655, troponin 0. EKG sinus tachycardia CXR with no acute abnormality Admitted for further care Past Medical History Cardiovascular: CAD, CHF, HTN, Hyperlipidemia Pulmonary: COPD CENTRAL NERVOUS SYSTEM: Other GI: GERD Heme/Onc: No pertinent hx Hepatobiliary: No pertinent hx Psych: Anxiety Musculoskeletal: Osteoarthritis Rheumatologic: No pertinent hx Infectious disease: No pertinent hx Renal/: No pertinent hx Endocrine: No pertinent hx Past Surgical History Past Surgical History: CABG Family History Family History: Family History Unknown Family History: Other Social History Smoke: 1 pack per day ALCOHOL: none Drugs: None Current Problem List Problem List Problems Medical Problems: (1) Suspected 2019 novel coronavirus infection Status: Acute Current Medications Current Medications Active Scripts Active Amoxicillin 500 Mg Capsule 1 Cap PO Q8HRS Augmentin 875-125 Tablet (Amoxicillin/Potassium Clav) 1 Each Tablet 1 Tab PO BID 10 Days Lasix (Furosemide) 40 Mg Tablet 1 Tab PO DAILY Klor-Con M20 (Potassium Chloride) 20 Meq Tab.er.prt 20 Meq PO DAILYWBKFT 14 Days Carvedilol (Carvedilol) 12.5 Mg Tablet 12.5 Mg PO BIDWMEALS Amlodipine Besylate 5 Mg Tablet 5 Mg PO DAILY Clopidogrel (Clopidogrel Bisulfate) 75 Mg Tablet 1 Tab PO DAILY Reported Prilosec Otc (Omeprazole Magnesium) 20 Mg Tablet.dr 20 Mg PO DAILY Methadone Hcl 10 Mg Tablet 15 Mg PO DAILY Nystatin 100,000 Unit/1 Ml Oral.susp 5 Ml PO QID Aspir 81 (Aspirin) 81 Mg Tablet.dr 1 Tab PO DAILY Ranitidine Hcl 150 Mg Tablet 1 Tab PO BID Atorvastatin Calcium 20 Mg Tablet 1 Tab PO DAILY Mirtazapine 15 Mg Tablet 1 Tab PO QHS Hydrocodone-Apap 5-325 (Hydrocodone Bit/Acetaminophen) 1 Each Tablet 1 Each PO PRN Q6HRS PRN NITROGLYCERIN SubLingual (Nitroglycerin) 0.4 Mg Tab.subl 0.4 Mg SL PRN Q5MIN Allergies Allergies: Coded Allergies: lisinopril (Verified Allergy, Intermediate, 10/30/18) simvastatin (Verified Allergy, Intermediate, 10/30/18) ROS General: YES: Chills, Night Sweats, Fatigue, Malaise, Appetite; No: Other PSYCHOLOGICAL ROS: YES: Anxiety, Behavioral Disorder, Concentration difficultie , Decreased libido, Depression, Disorientation, Hallucinations, Hostility, Irritablity, Memory difficulties, Mood Swings, Obsessive thoughts, Physical abuse, Sexual abuse, Sleep disturbances, Suicidal ideation, Other Eyes: No Blurry vision, No Decreased vision, No Double vision, No Dry eyes, No Excessive tearing, No Eye Pain, No Itchy Eyes, No Loss of vision, No Photophobia, No Scotomata, No Uses contacts, No Uses glasses, No Other HEENT: YES: Heacaches, Nasal congestion, Nasal discharge, Sinus pain, Sore Throat; No: Visual Changes, Hearing change, Oral lesions, Epistaxis, Sneezing, Snoring, Tinnitus, Vertigo, Vocal changes, Other ALLERGY AND IMMUNOLOGY: No: Hives, Insect Bite Sensitivity, Itchy/Watery Eyes, Nasal Congestion, Post Nasal Drip, Seasonal Allergies, Other Hematological and Lymphatic: No: Bleeding Problems, Blood Clots, Blood Transfusions, Brusing, Night Sweats, Pallor, Swollen Lymph Nodes, Other ENDOCRINE: No: Breast Changes, Galactorrhea, Hair Pattern Changes, Hot Flashes, Malaise/lethargy, Mood Swings, Palpitations, Polydipsia/polyuria, Skin Changes, Temperature Intolerance, Unexpected Weight Changes, Other Breast: No New/Changing Breast Lumps, No Nipple changes, No Nipple discharge, No Other Respiratory: YES: Cough, Shortness of breath, SOB with excertion, Tachypnea, Wheezing; No: Hemoptysis, Orthopnea, Pleuritic Pain, Sputum Changes, Stridor, Other Cardiovascular: No Chest Pain, No Palpitations, No Orthopnea, No Paroxysmal Noc. Dyspnea, No Edema, No Lt Headedness, No Other Gastrointestinal: No Nausea, No Vomiting, No Abdominal Pain, No Diarrhea, No Constipation, No Melena, No Hematochezia, No Other Genitourinary: No Dysuria, No Frequency, No Incontinence, No Hematuria, No Retention, No Discharge, No Urgency, No Pain, No Flank Pain, No Other, No , No , No , No , No , No , No Musculoskeletal: No Gait Disturbance, No Joint Pain, No Joint Stiffness, No Joint Swelling, No Muscle Pain, No Muscular Weakness, No Pain In:, No Swelling In:, No Other Neurological: No Behavorial Changes, No Bowel/Bladder ControlChng, No Confusion, No Dizziness, No Gait Disturbance, No Headaches, No Impaired Coord/balance, No Memory Loss, No Numbness/Tingling, No Seizures, No Speech Problems, No Tremors, No Visual Changes, No Weakness, No Other Skin: No Dry Skin, No Eczema, No Hair Changes, No Lumps, No Mole Changes, No Mottling, No Nail Changes, No Pruritus, No Rash, No Skin Lesion Changes, No Other, No Acne Physical Exam General: Alert, Oriented X3, Cooperative, moderate distress HEENT: Atraumatic, PERRLA, EOMI, Mucous membr. moist/pink Lungs: Other (wheezing) Heart: S1S2, RRR, no thrills, no rubs, no gallops, no murmurs Abdomen: Normal bowel sounds, Soft, No tenderness, No hepatosplenomegaly, No masses Rectal Exam: not examined Extremities: No clubbing, No cyanosis, No edema, Normal pulses, No tenderness/swelling Skin: No rashes, No breakdown, No significant lesion Neuro: Strength at 5/5 X4 ext, Normal tone, Sensation intact, Cranial nerves 3- 12 NL, Reflexes 2+ Psych/Mental Status: Other (Drowsy) Vitals Vitals Vital Signs Date Time Temp Pulse Resp B/P (MAP) Pulse Ox O2 Delivery O2 Flow Rate FiO2 02/12/20 12:25 100.3 93 20 161/80 (107) 99 2.0 100.3 02/12/20 12:08 Room Air Labs Labs Laboratory Tests Test 02/12/20 12:50 White Blood Count 9.3 x10^3/uL (4.0-11.0) Red Blood Count 4.31 x10^6/uL (3.50-5.40) Hemoglobin 12.8 g/dL (12.0-15.5) Hematocrit 38.0 % (36.0-47.0) Mean Corpuscular Volume 88 fL (79-100) Mean Corpuscular Hemoglobin 30 pg (25-35) Mean Corpuscular Hemoglobin Concent 34 g/dL (31-37) Red Cell Distribution Width 14.3 % (11.5-14.5) Platelet Count 195 x10^3/uL (140-400) Neutrophils (%) (Auto) 83 % (31-73) Lymphocytes (%) (Auto) 10 % (24-48) Monocytes (%) (Auto) 6 % (0-9) Eosinophils (%) (Auto) 1 % (0-3) Basophils (%) (Auto) 0 % (0-3) Neutrophils # (Auto) 7.7 x10^3/uL (1.8-7.7) Lymphocytes # (Auto) 0.9 x10^3/uL (1.0-4.8) Monocytes # (Auto) 0.6 x10^3/uL (0.0-1.1) Eosinophils # (Auto) 0.1 x10^3/uL (0.0-0.7) Basophils # (Auto) 0.0 x10^3/uL (0.0-0.2) D-Dimer (Alisa) < 0.27 ug/mlFEU Sodium Level 139 mmol/L (136-145) Potassium Level 4.2 mmol/L (3.5-5.1) Chloride Level 102 mmol/L (98-107) Carbon Dioxide Level 29 mmol/L (21-32) Anion Gap 8 (6-14) Blood Urea Nitrogen 12 mg/dL (7-20) Creatinine 0.7 mg/dL (0.6-1.0) Estimated GFR (Cockcroft-Gault) 84.8 BUN/Creatinine Ratio 17 (6-20) Glucose Level 99 mg/dL (70-99) Calcium Level 8.6 mg/dL (8.5-10.1) Total Bilirubin 0.4 mg/dL (0.2-1.0) Aspartate Amino Transf (AST/SGOT) 19 U/L (15-37) Alanine Aminotransferase (ALT/SGPT) 22 U/L (14-59) Alkaline Phosphatase 88 U/L (46-116) Lactate Dehydrogenase 207 U/L (81-234) Creatine Kinase 134 U/L (26-192) Troponin I Quantitative < 0.017 ng/mL (0.000-0.055) C-Reactive Protein, Quantitative 18.0 mg/L (0-3.3) NA-Krc-S-Type Natriuretic Peptide 655 pg/mL (0-124) Total Protein 7.7 g/dL (6.4-8.2) Albumin 3.9 g/dL (3.4-5.0) Albumin/Globulin Ratio 1.0 (1.0-1.7) Laboratory Tests Test 02/12/20 12:50 White Blood Count 9.3 x10^3/uL (4.0-11.0) Red Blood Count 4.31 x10^6/uL (3.50-5.40) Hemoglobin 12.8 g/dL (12.0-15.5) Hematocrit 38.0 % (36.0-47.0) Mean Corpuscular Volume 88 fL (79-100) Mean Corpuscular Hemoglobin 30 pg (25-35) Mean Corpuscular Hemoglobin Concent 34 g/dL (31-37) Red Cell Distribution Width 14.3 % (11.5-14.5) Platelet Count 195 x10^3/uL (140-400) Neutrophils (%) (Auto) 83 % (31-73) Lymphocytes (%) (Auto) 10 % (24-48) Monocytes (%) (Auto) 6 % (0-9) Eosinophils (%) (Auto) 1 % (0-3) Basophils (%) (Auto) 0 % (0-3) Neutrophils # (Auto) 7.7 x10^3/uL (1.8-7.7) Lymphocytes # (Auto) 0.9 x10^3/uL (1.0-4.8) Monocytes # (Auto) 0.6 x10^3/uL (0.0-1.1) Eosinophils # (Auto) 0.1 x10^3/uL (0.0-0.7) Basophils # (Auto) 0.0 x10^3/uL (0.0-0.2) D-Dimer (Alisa) < 0.27 ug/mlFEU Sodium Level 139 mmol/L (136-145) Potassium Level 4.2 mmol/L (3.5-5.1) Chloride Level 102 mmol/L (98-107) Carbon Dioxide Level 29 mmol/L (21-32) Anion Gap 8 (6-14) Blood Urea Nitrogen 12 mg/dL (7-20) Creatinine 0.7 mg/dL (0.6-1.0) Estimated GFR (Cockcroft-Gault) 84.8 BUN/Creatinine Ratio 17 (6-20) Glucose Level 99 mg/dL (70-99) Calcium Level 8.6 mg/dL (8.5-10.1) Total Bilirubin 0.4 mg/dL (0.2-1.0) Aspartate Amino Transf (AST/SGOT) 19 U/L (15-37) Alanine Aminotransferase (ALT/SGPT) 22 U/L (14-59) Alkaline Phosphatase 88 U/L (46-116) Lactate Dehydrogenase 207 U/L (81-234) Creatine Kinase 134 U/L (26-192) Troponin I Quantitative < 0.017 ng/mL (0.000-0.055) C-Reactive Protein, Quantitative 18.0 mg/L (0-3.3) EQ-Vft-U-Type Natriuretic Peptide 655 pg/mL (0-124) Total Protein 7.7 g/dL (6.4-8.2) Albumin 3.9 g/dL (3.4-5.0) Albumin/Globulin Ratio 1.0 (1.0-1.7) Images Images CXR: Sternal wires and mediastinal clips are present. The cardiomediastinal silhouette is normal. No focal consolidation. Interstitial thickening of the lung garzon similar to prior exam diffusely.. There is no pneumothorax. No pleural effusion is appreciated. No acute bone abnormality. IMPRESSION: No acute cardiopulmonary process. VTE Prophylaxis Ordered VTE Prophylaxis Devices: Yes VTE Pharmacological Prophylaxi: Yes Assessment/Plan Assessment/Plan A/P: Acute encephalopathy - likely metabolic from hypoxia, will continue to monitor Acute hypoxic respiratory failure - likely secondary to mild acute on chronic congestive heart failure with diastolic dysfunction. COVID 19 testing sent Coronary artery disease status post CABG in 2013 last PCI and stenting as per records 2013. Stable, will trend troponins, cont home medications, telemetry Acute on chronic heart failure, suspect systolic and diastolic. suspected covid-19 Dyslipidemia COPD with emphysema - will start nebs when able Smoker - counseled on cessation GERD Elevated pro-BNP Normocytic anemia FEN - Cardiac diet PPX - lovenox FULL CODE Dispo - inpatient COVID-19 CRITERIA: The patient was evaluated during the global COVID-19 pandemic, and that diagnosis was suspected/considered upon their initial presentation. Their evaluation, treatment and testing was consistent with current guidelines for patients who present with complaints or symptoms that may be related to COVID-19. Justifications for Admission Other Justification RIVAS BAZAN MD Feb 12, 2020 14:48
[2020-02-12] MEDS ORDERED: ENOXAPARIN 40 MG/0.4 ML SYRINGE. SQ SCH (15:00)
[2020-02-12] MEDS ORDERED: NITROGLYCERIN SUBLINGUAL 0.4 MG BOTTLE OF 25. SL SCH (15:00)
[2020-02-12] MEDS: ACETAMINOPHEN 325 MG TABLET. PO PRN (16:45)
[2020-02-12] MEDS ORDERED: FUROSEMIDE 20 MG/2 ML VIAL. IVP ONE (19:00)
[2020-02-12] MEDS: CARVEDILOL 12.5 MG TABLET. PO SCH (20:36)
[2020-02-12] MEDS: MIRTAZAPINE 15 MG TABLET PO SCH (20:37)
[2020-02-12] MEDS: DOXYCYCLINE HYCLATE 100 MG in IV DEXTROSE 5% 100ML 100 ML IV SCH (20:37)
[2020-02-12] MEDS: guaiFENesin ORAL 200 MG/10 ML LIQUID. PO PRN (20:38)
[2020-02-12 23:00] VITALS: BP 109/76
[2020-02-13 03:00] VITALS: BP 113/61
[2020-02-13 06:31] LABS: ALBUMIN 3.4 g/dL (3.4-5.0); ALBUMIN/GLOBULIN RATIO 0.8 (1.0-1.7); CALCIUM 8.4 mg/dL (8.5-10.1); CREATININE 0.7 mg/dL (0.6-1.0); GFR 84.8; POTASSIUM 3.8 mmol/L (3.5-5.1); TOTAL BILIRUBIN 0.6 mg/dL (0.2-1.0); TOTAL PROTEIN 7.6 g/dL (6.4-8.2)
[2020-02-13 07:15] VITALS: BP 94/54
[2020-02-13] MEDS: CARVEDILOL 12.5 MG TABLET. PO SCH ×2 (08:00→16:20)
[2020-02-13] MEDS: amLODIPine BESYLATE 5 MG TABLET PO SCH (09:00)
[2020-02-13] MEDS: METHADONE 10 MG TABLET. PO SCH (09:23)
[2020-02-13] MEDS: ASPIRIN ENTERIC COATED 81 MG TABLET.DR. PO SCH (09:23)
[2020-02-13] MEDS: ZINC SULFATE 220 MG CAPSULE. PO SCH (09:23)
[2020-02-13] MEDS: ATORVASTATIN CALCIUM 20 MG TABLET PO SCH (09:23)
[2020-02-13] MEDS: CLOPIDOGREL BISULFATE 75 MG TABLET PO SCH (09:23)
[2020-02-13] MEDS: ENOXAPARIN 40 MG/0.4 ML SYRINGE. SQ SCH ×2 (09:24→21:23)
[2020-02-13] MEDS: DOXYCYCLINE HYCLATE 100 MG in IV DEXTROSE 5% 100ML 100 ML IV SCH ×2 (09:24→21:23)
--- NOTE | 2020-02-13 09:26 | EKG ---
[facility] [address] [place] [address] Test Date: 2020-02-12 Test Time: 12:33:57 Pat Name: OUSMANE WANG Department: Room: Gender: F Commercial Coordinator: : 1955 Requested By: MARIA ESTHER RODRIGUEZ Order Number: [id number] Reading MD: Measurements Intervals [place] Rate: 93 P: 52 VA: 154 QRS: 44 QRSD: 74 T: 25 QT: 364 QTc: 455 Interpretive Statements SINUS RHYTHM LEFT ATRIAL ABNORMALITY ABNORMAL ECG RI6.02 No previous ECG available for comparison
[2020-02-13] MEDS: guaiFENesin ORAL 200 MG/10 ML LIQUID. PO PRN (10:08)
[2020-02-13 11:14] VITALS: BP 106/52
--- NOTE | 2020-02-13 15:00 | PDOC ---
[employer] PROGRESS NOTE Date of Service DOS: DATE: 02/13/20 TIME: 14:42 Chief Complaint Chief Complaint A/P: Acute encephalopathy - likely metabolic from hypoxia, will continue to monitor Acute hypoxic respiratory failure - likely secondary to mild acute on chronic congestive heart failure with diastolic dysfunction. COVID 19 testing sent Coronary artery disease status post CABG in 2012 last PCI and stenting as per records 2013. Stable, will trend troponins, cont home medications, telemetry Acute on chronic heart failure, suspect systolic and diastolic. suspected covid-19 Dyslipidemia COPD with emphysema - will start nebs when able Smoker - counseled on cessation GERD Elevated pro-BNP Normocytic anemia History of Present Illness History of Present Illness Ms Meredith is a 64yo F liberian speaking only w/ PMHx CAD s/p CABG, HTN, chronic pain, chronic bronchitis, smoker who presented to ED c/o shortness of breath, sneezing, cough, chills, and subjective fever. Noted with temp of 100.3 F in ED. 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 Blood cultures pending. She complains of being very tired. Not improved with breathing treatment. She is also confused, the central office operator supervisor continually asking her to repeat herself and noting she does not make sense WBC 9.3, Hb 12.8, platelets 195, NA 139, K4.2, BUN 12, CR 0.7, glucose 99, CRP 18, BNP 655, troponin 0. EKG sinus tachycardia CXR with no acute abnormality Admitted for further care 02/13/2020 Patient evaluated bedside, currently breathing on 2 L oxygen nasal cannula. Her COVID-19 test is negative. She states she feels better on like to go home, but she is still breathing on 2 L oxygen without previous O2 requirement. States that she was a smoker since she was 11 years old. She reports cough with productive mucus. Will treat patient for COPD exacerbation. May discharge to continue treatment outpatient when she is no longer has oxygen requirement. Discussed with RN. Vitals/I&O Vitals/I&O: Vital Signs Date Time Temp Pulse Resp B/P (MAP) Pulse Ox O2 Delivery O2 Flow Rate FiO2 02/13/20 11:14 99.0 70 22 106/52 (70) 94 Nasal Cannula 2.0 99.0 I & O 02/12/20 02/12/20 02/13/20 15:00 23:00 07:00 Intake Total 200 ml Balance 200 ml Physical Exam General: Alert, Oriented X3, Cooperative, No acute distress Heart: Regular rate Lungs: Crackles, Other Abdomen: Normal bowel sounds, Soft, No tenderness, No hepatosplenomegaly, No masses Extremities: No clubbing, No cyanosis, No edema, Normal pulses, No tenderness/swelling Skin: No rashes, No breakdown, No significant lesion Labs Labs: Laboratory Tests Test 02/12/20 20:00 02/13/20 05:04 Troponin I Quantitative < 0.017 ng/mL (0.000-0.055) < 0.017 ng/mL (0.000-0.055) D-Dimer (Alisa) < 0.27 ug/mlFEU Sodium Level 139 mmol/L (136-145) Potassium Level 3.8 mmol/L (3.5-5.1) Chloride Level 103 mmol/L (98-107) Carbon Dioxide Level 29 mmol/L (21-32) Anion Gap 7 (6-14) Blood Urea Nitrogen 10 mg/dL (7-20) Creatinine 0.7 mg/dL (0.6-1.0) Estimated GFR (Cockcroft-Gault) 84.8 BUN/Creatinine Ratio 14 (6-20) Glucose Level 85 mg/dL (70-99) Calcium Level 8.4 mg/dL (8.5-10.1) Total Bilirubin 0.6 mg/dL (0.2-1.0) Aspartate Amino Transf (AST/SGOT) 17 U/L (15-37) Alanine Aminotransferase (ALT/SGPT) 17 U/L (14-59) Alkaline Phosphatase 74 U/L (46-116) Total Protein 7.6 g/dL (6.4-8.2) Albumin 3.4 g/dL (3.4-5.0) Albumin/Globulin Ratio 0.8 (1.0-1.7) Review of Systems Review of Systems: Cough. Denies fever, denies nausea, denies vomiting, denies chest pain. Assessment and Plan Assessmemt and Plan Problems Medical Problems: (1) Suspected 2019 novel coronavirus infection Status: Acute Problems: (1) COPD exacerbation (2) CHF (congestive heart failure) Comment Review of Relevant I have reviewed the following items argenis (where applicable) has been applied. Medications: Current Medications Medications (Trade) Dose Ordered Sig/Mily Route PRN Reason Start Time Stop Time Status Last Admin Dose Admin Acetaminophen (Tylenol) 650 mg PRN Q4HRS PRN PO TEMP OVER 100.4F OR MILD PAIN 02/12/20 14:45 02/12/20 16:45 Guaifenesin (Robitussin) 200 mg PRN Q4HRS PRN PO COUGH 02/12/20 14:45 02/13/20 10:08 Enoxaparin Sodium (Lovenox 40mg Syringe) 40 mg Q24H SQ 02/12/20 15:00 02/12/20 18:33 DC 02/12/20 16:48 Aspirin (Ecotrin) 81 mg DAILY PO 02/13/20 09:00 02/13/20 09:23 Atorvastatin Calcium (Lipitor) 20 mg DAILY PO 02/13/20 09:00 02/13/20 09:23 Carvedilol (Coreg) 12.5 mg BIDWMEALS PO 02/12/20 17:00 02/12/20 20:36 Clopidogrel Bisulfate (Plavix) 75 mg DAILY PO 02/13/20 09:00 02/13/20 09:23 Methadone HCl (Dolophine) 15 mg DAILY PO 02/13/20 09:00 02/13/20 09:23 Mirtazapine (Remeron) 15 mg QHS PO 02/12/20 21:00 02/12/20 20:37 Enoxaparin Sodium (Lovenox 40mg Syringe) 40 mg Q12H SQ 02/13/20 09:00 02/13/20 09:24 Zinc Sulfate (Orazinc) 220 mg DAILY PO 02/13/20 09:00 02/13/20 09:23 Doxycycline Hyclate 100 mg/ Dextrose 100 ml @ 50 mls/hr Q12HR IV 02/12/20 21:00 02/13/20 09:24 Justifications for Admission Other Justification JULIANA HARDY MD Feb 13, 2020 15:00
[2020-02-13 15:08] VITALS: BP 99/53
[2020-02-13] MEDS ORDERED: IPRATRPIUM/ALBUTEROL 0.5/2.5MG 3 ML NEBU. NEB PRN (16:00)
[2020-02-13] MEDS ORDERED: IPRATRPIUM/ALBUTEROL 0.5/2.5MG 3 ML NEBU. NEB SCH (16:00)
--- NOTE | 2020-02-13 18:15 | NUR ---
This RN updated patient son, Ori about POC. He stated he would bring patient food to eat and to please call him with any changes in condition. Will continue to monitor.
[2020-02-13 19:00] VITALS: BP 98/54
[2020-02-13] MEDS: MIRTAZAPINE 15 MG TABLET PO SCH (21:24)
[2020-02-13] MEDS: LACTOBACILLUS RHAMNOSUS GG 1 CAPSULE. PO SCH (21:24)
[2020-02-13 23:00] VITALS: BP 159/84
[2020-02-14 03:00] VITALS: BP 97/55
[2020-02-14 07:42] VITALS: BP 93/55
[2020-02-14] MEDS: CARVEDILOL 12.5 MG TABLET. PO SCH ×2 (08:00→17:23)
[2020-02-14] MEDS: ATORVASTATIN CALCIUM 20 MG TABLET PO SCH (08:54)
[2020-02-14] MEDS: CLOPIDOGREL BISULFATE 75 MG TABLET PO SCH (08:54)
[2020-02-14] MEDS: ZINC SULFATE 220 MG CAPSULE. PO SCH (08:54)
[2020-02-14] MEDS: ASPIRIN ENTERIC COATED 81 MG TABLET.DR. PO SCH (08:54)
[2020-02-14] MEDS: ENOXAPARIN 40 MG/0.4 ML SYRINGE. SQ SCH ×2 (08:54→20:06)
[2020-02-14] MEDS: METHADONE 10 MG TABLET. PO SCH (08:54)
[2020-02-14] MEDS: DOXYCYCLINE HYCLATE 100 MG in IV DEXTROSE 5% 100ML 100 ML IV SCH ×2 (08:55→20:07)
[2020-02-14] MEDS: amLODIPine BESYLATE 5 MG TABLET PO SCH (08:55)
[2020-02-14] MEDS: LACTOBACILLUS RHAMNOSUS GG 1 CAPSULE. PO SCH ×2 (08:59→20:05)
[2020-02-14] MEDS: predniSONE 20 MG TABLET PO SCH (08:59)
[2020-02-14] MEDS: guaiFENesin ORAL 200 MG/10 ML LIQUID. PO PRN (10:15)
[2020-02-14 11:27] VITALS: BP 114/68
[2020-02-14 15:01] VITALS: BP 133/63
[2020-02-14] MEDS: ACETAMINOPHEN 325 MG TABLET. PO PRN (17:25)
--- NOTE | 2020-02-14 19:20 | PDOC ---
[facility] PROGRESS NOTE Date of Service DOS: DATE: 02/14/20 TIME: 19:19 Chief Complaint Chief Complaint A/P: Acute encephalopathy - likely metabolic from hypoxia, will continue to monitor Acute hypoxic respiratory failure - likely secondary to mild acute on chronic congestive heart failure with diastolic dysfunction. COVID 19 testing sent Coronary artery disease status post CABG in 2012 last PCI and stenting as per records 2013. Stable, will trend troponins, cont home medications, telemetry Acute on chronic heart failure, suspect systolic and diastolic. suspected covid-19 Dyslipidemia COPD with emphysema - will start nebs when able Smoker - counseled on cessation GERD Elevated pro-BNP Normocytic anemia History of Present Illness History of Present Illness Ms Meredith is a 64yo F [place] speaking only w/ PMHx CAD s/p CABG, HTN, chronic pain, chronic bronchitis, smoker who presented to ED c/o shortness of breath, sneezing, cough, chills, and subjective fever. Noted with temp of 100.3 F in ED. [employer] [facility] [employer] phone via [employer] utilized SARS-CoV-2 testing sent in ED. Blood cultures pending. She complains of being very tired. Not improved with breathing treatment. She is also confused, the business management associate continually asking her to repeat herself and noting she does not make sense WBC 9.3, Hb 12.8, platelets 195, NA 139, K4.2, BUN 12, CR 0.7, glucose 99, CRP 18, BNP 655, troponin 0. EKG sinus tachycardia CXR with no acute abnormality Admitted for further care 02/13/2020 Patient evaluated bedside, currently breathing on 2 L oxygen nasal cannula. Her COVID-19 test is negative. She states she feels better on like to go home, but she is still breathing on 2 L oxygen without previous O2 requirement. States that she was a smoker since she was 11 years old. She reports cough with productive mucus. Will treat patient for COPD exacerbation. May discharge to continue treatment outpatient when she is no longer has oxygen requirement. Discussed with RN. 02/14/2020 Patient evaluated bedside. She is currently breathing on room air. Still with some cough. Will monitor patient to the night for continued improvement. No longer having oxygen requirement, will discharge home tomorrow. Vitals/I&O Vitals/I&O: Vital Signs Date Time Temp Pulse Resp B/P (MAP) Pulse Ox O2 Delivery O2 Flow Rate FiO2 10/18/20 17:23 82 133/63 02/14/20 15:01 97.9 20 94 Nasal Cannula 2.0 97.9 I & O 02/13/20 02/13/20 02/14/20 15:00 23:00 07:00 Intake Total 200 ml 200 ml Output Total 400 ml 500 ml Balance -200 ml -300 ml Physical Exam General: Alert, Oriented X3, Cooperative, No acute distress Heart: Regular rate Lungs: Crackles, Other Abdomen: Normal bowel sounds, Soft, No tenderness, No hepatosplenomegaly, No masses Extremities: No clubbing, No cyanosis, No edema, Normal pulses, No tenderness/swelling Skin: No rashes, No breakdown, No significant lesion Review of Systems Review of Systems: Denies fever, denies chest pain, denies nausea. Assessment and Plan Assessmemt and Plan Problems Medical Problems: (1) Suspected 2019 novel coronavirus infection Status: Acute Comment Review of Relevant I have reviewed the following items argenis (where applicable) has been applied. Medications: Current Medications Medications (Trade) Dose Ordered Sig/Mily Route PRN Reason Start Time Stop Time Status Last Admin Dose Admin Prednisone (Prednisone) 40 mg DAILY PO 02/14/20 09:00 02/19/20 09:00 02/14/20 08:59 Lactobacillus Rhamnosus (Culturelle) 1 cap BID PO 02/13/20 21:00 02/14/20 08:59 Justifications for Admission Other Justification JULIANA HARDY MD Feb 14, 2020 19:20
[2020-02-14 19:47] VITALS: BP 143/77
--- NOTE | 2020-02-14 19:51 | NUR ---
This RN called pt son Hem for an update. All questions answered and he verbalized understanding.
[2020-02-14] MEDS: MIRTAZAPINE 15 MG TABLET PO SCH (20:05)
[2020-02-14 23:17] VITALS: BP 96/58
[2020-02-15 03:25] VITALS: BP 103/68
[2020-02-15 07:32] VITALS: BP 134/72
[2020-02-15] MEDS: guaiFENesin ORAL 200 MG/10 ML LIQUID. PO PRN (08:19)
[2020-02-15] MEDS: DOXYCYCLINE HYCLATE 100 MG in IV DEXTROSE 5% 100ML 100 ML IV SCH (08:19)
[2020-02-15] MEDS: ASPIRIN ENTERIC COATED 81 MG TABLET.DR. PO SCH (08:19)
[2020-02-15] MEDS: predniSONE 20 MG TABLET PO SCH (08:19)
[2020-02-15] MEDS: METHADONE 10 MG TABLET. PO SCH (08:20)
[2020-02-15] MEDS: ENOXAPARIN 40 MG/0.4 ML SYRINGE. SQ SCH (08:20)
[2020-02-15] MEDS: amLODIPine BESYLATE 5 MG TABLET PO SCH (08:20)
[2020-02-15] MEDS: CARVEDILOL 12.5 MG TABLET. PO SCH (08:21)
[2020-02-15] MEDS: ATORVASTATIN CALCIUM 20 MG TABLET PO SCH (08:21)
[2020-02-15] MEDS: LACTOBACILLUS RHAMNOSUS GG 1 CAPSULE. PO SCH (08:21)
[2020-02-15] MEDS: CLOPIDOGREL BISULFATE 75 MG TABLET PO SCH (08:21)
[2020-02-15] MEDS: ZINC SULFATE 220 MG CAPSULE. PO SCH (08:21)
[2020-02-15 11:01] VITALS: BP 126/64
[2020-02-15] MEDS ORDERED: PRED20TA PO (12:03)
[2020-02-15] MEDS ORDERED: DOXY100C2 PO (12:03)
--- NOTE | 2020-02-15 12:05 | DISCH ---
DISCHARGE INSTRUCTIONS Condition on Discharge Condition on Discharge: Stable (Continue your doxycycline and prednisone for 3 more days to complete the course) Activity After Discharge Activity Instructions for Disc: Activity as tolerated Exercise Instruction after Dis: Walk 15 min, 3 x per day, Exercise per therapy Weight Bearing Status after Di: As tolerated Diet after Discharge Diet after Discharge: Cardiac Diet Texture: Regular Liquid Texture: Thin Liquid Swallowing Supervision: None needed Wound Incision Care Wound/Incision Care: No wound care needed Checks after Discharge Checks after discharge: Check your Temp as needed DC Comment: CBC, CMP in 1 week Contacting the DRStephan after DC Call your doctor for: If your condition worsens Follow-Up Follow up with: PCP within 1 week of discharge Treatment/Equipment after DC Adaptive Equipment Issued: None Comment: Continue prednisone and doxycycline for 3 more day ANDREAS JIN MD Feb 15, 2020 12:05
[2020-02-15 15:33] VITALS: BP 113/61
--- NOTE | 2020-02-15 15:41 | NUR ---
Discharge Note: OUSMANE WANG M6 [facility] Discharge instructions and discharge home medications reviewed with Hem, Family Member and a copy given. All questions have been answered and understanding verbalized. The following instructions and handouts were given: Follow up instructions, Rx medication education Discontinued lines and drains: 22 gauge left FA, tip intact, patient tolerated well. Patient discharged to home with self care via family.
--- NOTE | 2020-02-15 17:04 | NUR ---
SW following. Spoke with RN and reviewed chart. Pt to discharge home today, self-care. Pt to discharge on room air and oral medications as 6 min walk did not indicate the need for home 02 at discharge. Pt COVID negative. No further SW needs identified at this time.
--- NOTE | 2020-02-15 22:57 | PDOC3 ---
[facility]-Discharge Summary Date of Admission: Date of Admission: Feb 12, 2020 Date of Discharge: Date of Discharge: Feb 15, 2020 Admission Diagnosis: Admitting Diagnosis: Acute encephalopathy - likely metabolic from hypoxia, will continue to monitor Acute hypoxic respiratory failure - likely secondary to mild acute on chronic congestive heart failure with diastolic dysfunction. COVID 19 testing sent Coronary artery disease status post CABG in 2012 last PCI and stenting as per records 2013. Stable, will trend troponins, cont home medications, telemetry Acute on chronic heart failure, suspect systolic and diastolic. suspected covid-19 Dyslipidemia COPD with emphysema - will start nebs when able Smoker - counseled on cessation GERD Elevated pro-BNP Normocytic anemia Discharge Diagnosis: Discharge Diagnosis: Acute encephalopathy - improved Acute hypoxic respiratory failure - improved to RA Coronary artery disease status post CABG in 2012 last PCI and stenting as per records 2013. Stable, will trend troponins, cont home medications, telemetry Acute on chronic heart failure, suspect systolic and diastolic. Dyslipidemia COPD with emphysema - complete prednisone course Smoker - counseled on cessation GERD Elevated pro-BNP Normocytic anemia Hospital Course: Hospital Course: 64yo F [place]i speaking only w/ PMHx CAD s/p CABG, HTN, chronic pain, chronic bronchitis, smoker who presented to ED c/o shortness of breath, sneezing, cough, chills, and subjective fever. Noted with temp of 100.3 F in ED. Supervisor [employer] phone via [employer] utilized SARS-CoV-2 testing sent in ED. Blood cultures pending. She complains of being very tired. Not improved with breathing treatment. She is also confused, the lgsw continually asking her to repeat herself and noting she does not make sense WBC 9.3, Hb 12.8, platelets 195, NA 139, K4.2, BUN 12, CR 0.7, glucose 99, CRP 18, BNP 655, troponin 0. EKG sinus tachycardia CXR with no acute abnormality Admitted for further care Patient O2 supplementation requirements was decreased eventually to room air. She was started on prednisone 40mg tx for 5 days for COPD exacerbation. Her covid test returned negative. She was breathing comfortably by day of discharge and was ready to go home. I discussed the plan with her son over the phone and explained to him that she needs to complete her prednisone course and abx course of 3 more days after discharged. He understood the plan. The rest of the hospital course was uneventful. Disposition: Disposition/Orders: D/C to Home Activity: Activity: Resume previous activity Diet: Diet: Cardiac Medications: Home Meds Active Scripts Doxycycline Hyclate (DOXYCYCLINE HYCLATE) 100 Mg Capsule, 1 CAP PO BID for pna for 3 Days, #6 CAP Prov:ANDREAS JIN MD 02/15/20 Prednisone (PREDNISONE) 20 Mg Tablet, 40 MG PO DAILY for copd exac for 3 Days, #6 TAB Prov:ANDREAS JIN MD 02/15/20 Furosemide (LASIX) 40 Mg Tablet, 1 TAB PO DAILY for chf, #14 TAB 1 Refill Prov:BIANCA MATHEW MD 10/31/18 Potassium Chloride (KLOR-CON M20) 20 Meq Tab.er.prt, 20 MEQ PO DAILYWBKFT for chf for 14 Days, #14 TAB.SR Prov:BIANCA MATHEW MD 10/31/18 Carvedilol (CARVEDILOL ) 12.5 Mg Tablet, 12.5 MG PO BIDWMEALS for htn, #60 TAB Prov:BIANCA MATHEW MD 10/31/18 Amlodipine Besylate (AMLODIPINE BESYLATE) 5 Mg Tablet, 5 MG PO DAILY for htn, #60 TAB Prov:BIANCA MATHEW MD 10/31/18 Clopidogrel Bisulfate (CLOPIDOGREL) 75 Mg Tablet, 1 TAB PO DAILY for cad, #90 TAB 1 Refill Prov:BIANCA MATHEW MD 10/31/18 Reported Medications Omeprazole Magnesium (PRILOSEC OTC) 20 Mg Tablet.dr, 20 MG PO DAILY, TAB 09/27/15 Methadone Hcl (METHADONE HCL) 10 Mg Tablet, 15 MG PO DAILY, TAB 09/25/15 Nystatin (NYSTATIN) 100,000 Unit/1 Ml Oral.susp, 5 ML PO QID, #200 ML 09/25/15 Aspirin (ASPIR 81) 81 Mg Tablet.dr, 1 TAB PO DAILY, #30 TAB 5 Refills 09/25/15 Ranitidine Hcl (RANITIDINE HCL) 150 Mg Tablet, 1 TAB PO BID, #180 TAB 3 Refills 09/25/15 Atorvastatin Calcium (ATORVASTATIN CALCIUM) 20 Mg Tablet, 1 TAB PO DAILY, #30 TAB 5 Refills 09/25/15 Mirtazapine (MIRTAZAPINE) 15 Mg Tablet, 1 TAB PO QHS, #30 TAB 3 Refills 09/25/15 Nitroglycerin (NITROGLYCERIN SubLingual) 0.4 Mg Tab.subl, 0.4 MG SL PRN Q5MIN 03/29/13 Discontinued Reported Medications Hydrocodone Bit/Acetaminophen (HYDROCODONE-APAP 5-325 ) 1 Each Tablet, 1 EACH PO PRN Q6HRS PRN for PAIN 05/18/13 Discontinued Scripts Amoxicillin (AMOXICILLIN) 500 Mg Capsule, 1 CAP PO Q8HRS for infection, #30 CAP Prov:MARIA ESTHER RODRIGUEZ MD 12/10/19 Amoxicillin/Potassium Clav (AUGMENTIN 875-125 TABLET) 1 Each Tablet, 1 TAB PO BID for Clostridium perfringens bacter for 10 Days, #20 TAB 0 Refills Prov:RIVAS BAZAN MD 09/21/19 Scheduled Amlodipine Besylate (Amlodipine Besylate), 5 MG PO DAILY Aspirin (Aspir 81), 1 TAB PO DAILY, (Reported) Atorvastatin Calcium (Atorvastatin Calcium), 1 TAB PO DAILY, (Reported) Carvedilol (Carvedilol ), 12.5 MG PO BIDWMEALS Clopidogrel Bisulfate (Clopidogrel), 1 TAB PO DAILY Doxycycline Hyclate (Doxycycline Hyclate), 1 CAP PO BID Furosemide (Lasix), 1 TAB PO DAILY Methadone Hcl (Methadone Hcl), 15 MG PO DAILY, (Reported) Mirtazapine (Mirtazapine), 1 TAB PO QHS, (Reported) Nitroglycerin (NITROGLYCERIN SubLingual), 0.4 MG SL PRN Q5MIN, (Reported) Nystatin (Nystatin), 5 ML PO QID, (Reported) Omeprazole Magnesium (Prilosec Otc), 20 MG PO DAILY, (Reported) Potassium Chloride (Klor-Con M20), 20 MEQ PO DAILYWBKFT Prednisone (Prednisone), 40 MG PO DAILY Ranitidine Hcl (Ranitidine Hcl), 1 TAB PO BID, (Reported) Discontinued Medications Amoxicillin (Amoxicillin), 1 CAP PO Q8HRS Amoxicillin/Potassium Clav (Augmentin 875-125 Tablet), 1 TAB PO BID Hydrocodone Bit/Acetaminophen (Hydrocodone-Apap 5-325 ), 1 EACH PO PRN Q6HRS PRN for PAIN, (Reported) Total Time: Total Time: Total time spent was 50 minutes in preparing scripts, discharge planning with SW and RN, and preparing this discharge summary. Patient seen and examined on day of discharge. Justicifation of Admission Dx: Justifications for Admission: Justification of Admission Dx: Yes ANDREAS JIN MD Feb 15, 2020 22:57
== END 2020-02-15 16:06 | disposition home or self-care (01) | DRG 291 ==
LOC: ER 11:53 → 6 SOUTH 14:06
PROVIDERS: ADMIT Internal Medicine; ATTEND Internal Medicine
DX: I11.0 Hypertensive heart disease with heart failure (principal); J96.01 Acute respiratory failure with hypoxia; G93.41 Metabolic encephalopathy; I50.33 Acute on chronic diastolic (congestive) heart failure; D64.9 Anemia, unspecified; E78.00 Pure hypercholesterolemia, unspecified; E78.5 Hyperlipidemia, unspecified; F17.210 Nicotine dependence, cigarettes, uncomplicated; G89.29 Other chronic pain; I25.10 Atherosclerotic heart disease of native coronary artery without angina pectoris; J43.9 Emphysema, unspecified; K21.9 Gastro-esophageal reflux disease without esophagitis; Z20.828 Contact with and (suspected) exposure to other viral communicable diseases; Z95.1 Presence of aortocoronary bypass graft; F41.9 Anxiety disorder, unspecified; M19.90 Unspecified osteoarthritis, unspecified site; Z88.8 Allergy status to other drugs, medicaments and biological substances
CPT/HCPCS: 36415; 71045; 80053; 82550; 83615; 83880; 84145; 84484; 85025; 85379; 86140; 87040; 93005; 94618; 96372; 99285; J1650; J3490; J7060; J7512; G0378; U0003-CS

== ENCOUNTER 2020-04-10 12:03 | Emergency (ER) | payer MEDICAID ==
[~2020-04-10] VITALS: Ht 160 cm; Wt 54.5 kg
[~2020-04-10 12:03] MED LIST changes: +DOXY100C2 PO; +PRED20TA PO
[2020-04-10] MEDS ORDERED: IPRATRPIUM/ALBUTEROL 0.5/2.5MG 3 ML NEBU. NEB ONE (12:15)
[2020-04-10] MEDS ORDERED: predniSONE 20 MG TABLET PO ONE (12:15)
--- NOTE | 2020-04-10 12:28 | PHYS DOC ---
Past Medical History Past Medical History: CAD, High Cholesterol, Hypertension, Unknown Additional Past Medical Histor: SEASONAL ALLERGIES Past Surgical History: Coronary Bypass Surgery Additional Past Surgical Histo: CABG was done 2 months ago here, Smoking Status: Current Every Day Smoker Alcohol Use: None Drug Use: None General Adult EDM: Chief Complaint: CHEST PAIN HPI: HPI: History gained from patient. Patient is a 64-year-old female with a history of nonoxygen dependent CHF, wheezing, CAD who presents with chief complaint of shortness of breath. She states she had progressive shortness of breath over the past 2 days. She notes that she has had a mildly progressive cough. Does have some chest pain but states it is only present when she coughs. Denies objective fevers. Denies syncope. Denies back pain. Has been using her inhaler at home with minimal relief. Denies any recent antibiotics. States she was hospitalized at our facility approximately 6 weeks ago for shortness of breath. She states she feels much better compared to that visit. No exposure coronavirus. Denies any recent travel. Denies any swelling or weight gain. Denies any feelings of irregular rapid heartbeat. Does note a mild sore throat. Does note some mild nasal congestion. States she has been taking all of her medicines. No other complaints. Review of Systems: Review of Systems: Constitutional: Denies fever or chills. [] Eyes: Denies change in visual acuity. [] HENT: Positive for nasal congestion and sore throat Respiratory: Positive for cough and shortness of breath Cardiovascular: Denies chest pain or edema. [] GI: Denies abdominal pain, nausea, vomiting, bloody stools or diarrhea. [] : Denies dysuria. [] Musculoskeletal: Denies back pain or joint pain. [] Integument: Denies rash. [] Neurologic: Denies headache, focal weakness or sensory changes. [] Endocrine: Denies polyuria or polydipsia. [] Lymphatic: Denies swollen glands. [] Psychiatric: Denies depression or anxiety. [] Heart Score: Risk Factors: Risk Factors: DM, Current or recent (<one month) smoker, HTN, HLP, family history of CAD, obesity. Risk Scores: Score 0 - 3: 2.5% MACE over next 6 weeks - Discharge Home Score 4 - 6: 20.3% MACE over next 6 weeks - Admit for Clinical Observation Score 7 - 10: 72.7% MACE over next 6 weeks - Early Invasive Strategies Current Medications: Current Medications Medications (Trade) Dose Ordered Sig/Mily Start Time Stop Time Status Last Admin Dose Admin Albuterol/ Ipratropium (Duoneb) 9 ml 1X ONCE 04/10/20 12:15 04/10/20 12:16 DC Prednisone (Prednisone) 60 mg 1X ONCE 04/10/20 12:15 04/10/20 12:16 DC Allergies: Allergies: Allergies Coded Allergies Type Severity Reaction Last Updated Verified lisinopril Allergy Intermediate 10/30/18 Yes simvastatin Allergy Intermediate 10/30/18 Yes Physical Exam: PE: Constitutional: Well developed, well nourished, no acute distress, non-toxic appearance. [] HENT: Normocephalic, atraumatic, bilateral external ears normal, oropharynx moist, no oral exudates, nose normal. [] Eyes: PERRLA, EOMI, conjunctiva normal, no discharge. [] Neck: Normal range of motion, no tenderness, supple, no stridor. [] Cardiovascular:Heart rate regular rhythm, no murmur [] Lungs & Thorax: Speaking in full sentences. And expiratory wheezes noted in the bases bilaterally. No accessory muscle usage appreciated. Abdomen: Bowel sounds normal, soft, no tenderness, no masses, no pulsatile masses. [] Skin: Warm, dry, no erythema, no rash. [] Back: No tenderness, no CVA tenderness. [] Extremities: No tenderness, no cyanosis, no clubbing, ROM intact, no edema. [] Neurologic: Alert and oriented X 3, normal motor function, normal sensory function, no focal deficits noted. [] Psychologic: Affect normal, judgement normal, mood normal. [] Current Patient Data: Labs: Laboratory Tests Test 04/10/20 12:24 White Blood Count 6.2 x10^3/uL Red Blood Count 4.49 x10^6/uL Hemoglobin 13.3 g/dL Hematocrit 39.6 % Mean Corpuscular Volume 88 fL Mean Corpuscular Hemoglobin 30 pg Mean Corpuscular Hemoglobin Concent 34 g/dL Red Cell Distribution Width 14.4 % Platelet Count 232 x10^3/uL Neutrophils (%) (Auto) 62 % Lymphocytes (%) (Auto) 30 % Monocytes (%) (Auto) 7 % Eosinophils (%) (Auto) 1 % Basophils (%) (Auto) 1 % Neutrophils # (Auto) 3.9 x10^3/uL Lymphocytes # (Auto) 1.9 x10^3/uL Monocytes # (Auto) 0.4 x10^3/uL Eosinophils # (Auto) 0.0 x10^3/uL Basophils # (Auto) 0.0 x10^3/uL Sodium Level 139 mmol/L Potassium Level 3.9 mmol/L Chloride Level 103 mmol/L Carbon Dioxide Level 29 mmol/L Anion Gap 7 Blood Urea Nitrogen 14 mg/dL Creatinine 0.7 mg/dL Estimated GFR (Cockcroft-Gault) 84.8 BUN/Creatinine Ratio 20 Glucose Level 107 mg/dL Calcium Level 8.5 mg/dL Total Bilirubin 0.2 mg/dL Aspartate Amino Transf (AST/SGOT) 15 U/L Alanine Aminotransferase (ALT/SGPT) 18 U/L Alkaline Phosphatase 91 U/L Troponin I Quantitative < 0.017 ng/mL OT-Ifi-[id number]-Type Natriuretic Peptide 673 pg/mL Total Protein 7.9 g/dL Albumin 3.8 g/dL Albumin/Globulin Ratio 0.9 Current Medications Medications (Trade) Dose Ordered Sig/Mily Route PRN Reason Start Time Stop Time Status Last Admin Dose Admin Albuterol/ Ipratropium (Duoneb) 9 ml 1X ONCE NEB 04/10/20 12:15 04/10/20 12:16 Cancel Prednisone (Prednisone) 60 mg 1X ONCE PO 04/10/20 12:15 04/10/20 12:16 DC 04/10/20 12:53 Albuterol Sulfate (Ventolin Hfa) 2 puff 1X ONCE INH 04/10/20 13:45 04/10/20 13:46 DC Vital Signs: Vital Signs Date Time Temp Pulse Resp B/P (MAP) Pulse Ox O2 Delivery O2 Flow Rate FiO2 04/10/20 13:31 96 Room Air 04/10/20 12:14 98.6 73 24 139/66 (90) 98 Room Air 98.6 EKG: EKG: [] EKG consistent with normal sinus rhythm. Ventricular rate of 74 bpm. Hermann normal. Intervals normal. No acute ischemic changes appreciated. Radiology/Procedures: Radiology/Procedures: [facility] [address] [place] [address] IMAGING REPORT Signed PATIENT: OUSMANE WANG ACCOUNT: [id number] : 1955 LOCATION: ER AGE: 64 SEX: F EXAM STATUS: REG ER ORD. PHYSICIAN: JACOB PEREZ DO REASON: SOB and Cough. Abnormal CXR PROCEDURE: CT CHEST WO CONTRAST CT chest without contrast PQRS statement: CT scans at this facility use dose reduction including either automated exposure control, iterative reconstructions, and /or weight based radiation dosing via mA and kV modification when appropriate to reduce radiation dose to as low as reasonably achievable. HISTORY: Shortness of breath and cough. Abnormal chest x-ray. COMPARISON: Chest x-ray April 10, 2020, CT chest September 20, 2019 and priors. FINDINGS: Median sternotomy coronary bypass changes. Calcified plaque of the [place] coronary arteries. Heart size stable to prior imaging. Calcified plaque of the ascending aorta and aortic arch. Pulmonary vessels and esophagus are unremarkable. No enlarged adenopathy in the chest. The upper lung apices are outside the npepr-zz-arln and are not included on this examination. There is mild bronchial wall thickening similar the prior exam may be chronic bronchitis. Right apical 4 mm perivascular solid nodule image 3 is stable. Right middle lobe 3 mm nodule image 23 stable. Right middle lobe 4 mm nodule image 30 stable. No pulmonary opacities. No pleural effusions. IMPRESSION: No acute process. Diffuse bronchial wall thickening similar to prior imaging likely chronic or recurrent bronchitis. No pulmonary opacities. Small pulmonary nodules largest measuring 4 mm are stable to the prior exam. Electronically signed by: Deb Lawler MD (04/10/2020 1:47 PM) [id number] DICTATED and SIGNED BY: DEB LAWLER MD DATE: 04/10/20 [id number] [] Course & Med Decision Making: Course & Med Decision Making Pertinent Labs and Imaging studies reviewed. (See chart for details) [] Patient is an overall well-appearing 64-year-old female who presents with chief complaint of shortness of breath and wheezing. Initial vital signs unremarkable including normal oxygenation. Clinically the patient did have faint wheezes on end expiration. Breathing treatments were administered as well as oral prednisone. Chest x-ray did show a potential opacity in the left lower lobe. Chest CT scan was also obtained and showed no signs of infection. Pulmonary nodules present and stable. Remainder of labs are unremarkable. Her proBNP level is consistent with her baseline. No effusions visualized on chest imaging. Troponin negative. Per chart review patient does have a history of chronic bronchitis and COPD. Given the patient's wheezing I do feel this is what she is most likely experiencing. She did report relief of her symptoms on repeat examination. Her oxygenation remained normal. Overall I do feel she is appropriate for discharge home with close follow-up. She did decline flu and Covid testing. She was given quarantine instructions. Return precautions were discussed and understood. She will be discharged home with a short course of or al steroids. Antibiotics were deferred as she shows no signs of focal consolidation or report increased sputum production. Stable for discharge home. Dragon Disclaimer: Dragon Disclaimer: This electronic medical record was generated, in whole or in part, using a voice recognition dictation system. Departure Departure Impression: Primary Impression: COPD exacerbation Disposition: 01 DC HOME SELF CARE/HOMELESS Condition: STABLE Referrals: NERI HAMILTON MD (PCP) Patient Instructions: Acute Bronchitis, Chronic Obstructive Pulmonary Disease Exacerbation Additional Instructions: Please follow-up with your primary care physician in the next 2 to 3 days. Scripts Prednisone (PREDNISONE) 20 Mg Tablet 40 MG PO DAILY for 5 Days, #10 TAB Prov: JACOB PEREZ DO 04/10/20 Albuterol Sulfate (Proair Hfa) 8.5 Gm Hfa.aer.ad 2 PUFF IH PRN Q4-6HRS PRN for wheezing for 21 Days, #1 INHALER 0 Refills Prov: JACOB PEREZ DO 04/10/20 JACOB PEREZ DO Apr 10, 2020 12:28
[2020-04-10 12:34] LABS: BASO % 1 % (0-3); EOS % 1 % (0-3); HEMATOCRIT 39.6 % (36.0-47.0); HEMOGLOBIN 13.3 g/dL (12.0-15.5); LYMPH # 1.9 x10^3/uL (1.0-4.8); LYMPH % 30 % (24-48); MEAN CORPUSCULAR HEMOGLOBIN 30 pg (25-35); MEAN CORPUSCULAR HGB CONC 34 g/dL (31-37); MEAN CORPUSCULAR VOLUME 88 fL (79-100); MONO # 0.4 x10^3/uL (0.0-1.1); MONO % 7 % (0-9); NEUT # 3.9 x10^3/uL (1.8-7.7); NEUT % 62 % (31-73); PLATELET COUNT 232 x10^3/uL (140-400); RED BLOOD COUNT 4.49 x10^6/uL (3.50-5.40); RED CELL DISTRIBUTION WIDTH 14.4 % (11.5-14.5); WHITE BLOOD COUNT 6.2 x10^3/uL (4.0-11.0)
[2020-04-10 12:45] LABS: CALCIUM 8.5 mg/dL (8.5-10.1); CREATININE 0.7 mg/dL (0.6-1.0); GFR 84.8; POTASSIUM 3.9 mmol/L (3.5-5.1)
[2020-04-10 12:51] LABS: ALBUMIN 3.8 g/dL (3.4-5.0); ALBUMIN/GLOBULIN RATIO 0.9 (1.0-1.7); TOTAL BILIRUBIN 0.2 mg/dL (0.2-1.0); TOTAL PROTEIN 7.9 g/dL (6.4-8.2)
--- NOTE | 2020-04-10 12:58 | RAD ---
XR CHEST 1V Clinical indications: Shortness of breath and sore throat. COMPARISON: February 12, 2020. Findings: Chronic bilateral peribronchial thickening is seen consistent with chronic bronchitis. Ther e is a new small ill-defined left lung base infiltrate. No pneumothorax or pleural effusion is seen. The heart size is stable. Sternotomy is again evident. Mediastinum is unchanged. IMPRESSION: Chronic bilateral bronchitis. New ill-defined left lung base infiltrate. Electronically signed by: Waylon Major MD (04/10/2020 12:55 PM) [id number]
[2020-04-10] MEDS ORDERED: ALBUTEROL SULFATE 8GM INHALER. INH ONE (13:45)
--- NOTE | 2020-04-10 13:49 | RAD ---
CT chest without contrast PQRS statement: CT scans at this facility use dose reduction including either automated exposure cont rol, iterative reconstructions, and /or weight based radiation dosing via mA and kV modification when appropriate to reduce radiation dose to as low as reasonably achievable. HISTORY: Shortness of breath and cough. Abnormal chest x-ray. COMPARISON: Chest x-ray April 10, 2020, CT chest September 20, 2019 and priors. FINDINGS: Median sternotomy coronary bypass changes. Calcified plaque of the [place] coronary arteries . Heart size stable to prior imaging. Calcified plaque of the ascending aorta and aortic arch. Pulmon bia vessels and esophagus are unremarkable. No enlarged adenopathy in the chest. The upper lung apice s are outside the tqwnd-qe-adhi and are not included on this examination. There is mild bronchial wal l thickening similar the prior exam may be chronic bronchitis. Right apical 4 mm perivascular solid n odule image 3 is stable. Right middle lobe 3 mm nodule image 23 stable. Right middle lobe 4 mm nodule image 30 stable. No pulmonary opacities. No pleural effusions. IMPRESSION: No acute process. Diffuse bronchial wall thickening similar to prior imaging likely chron ic or recurrent bronchitis. No pulmonary opacities. Small pulmonary nodules largest measuring 4 mm ar e stable to the prior exam. Electronically signed by: Holden Lawler MD (04/10/2020 1:47 PM) [id number]
[2020-04-10] MEDS ORDERED: PRED20TA PO (14:11)
[2020-04-10] MEDS ORDERED: ALBU2.5V8 IH (14:11)
[2020-04-10 14:19] VITALS: BP 130/60
--- NOTE | 2020-04-12 10:09 | EKG ---
[facility] [address] [place] [address] Test Date: 2020-04-10 Test Time: 12:15:08 Pat Name: OUSMANE WANG Department: Room: Gender: F Speed Operator: : 1955 Requested By: JACOB PEREZ Order Number: [id number] Reading MD: Measurements Intervals Caspian Rate: 74 P: 29 VA: 162 QRS: 40 QRSD: 78 T: 9 QT: 424 QTc: 476 Interpretive Statements SINUS RHYTHM LEFT ATRIAL ABNORMALITY T ABNORMALITY IN HIGH LATERAL LEADS PROLONGED QT ABNORMAL ECG RI6.02 No previous ECG available for comparison
== END 2020-04-10 14:40 | disposition home or self-care (01) ==
LOC: ER 12:03
DX: J44.9 Chronic obstructive pulmonary disease, unspecified (principal); R05 Cough; R07.89 Other chest pain; I11.0 Hypertensive heart disease with heart failure; I50.9 Heart failure, unspecified; E78.00 Pure hypercholesterolemia, unspecified; F17.200 Nicotine dependence, unspecified, uncomplicated; Z98.890 Other specified postprocedural states; Z88.8 Allergy status to other drugs, medicaments and biological substances
CPT/HCPCS: 36415; 71045; 71250; 80053; 83880; 84484; 85025; 94640; 99285; J7512; 93005

== ENCOUNTER 2020-08-13 14:25 | Emergency (ER) | payer MEDICAID ==
[~2020-08-13] VITALS: Ht 152.4 cm; Wt 50.0 kg
[~2020-08-13 14:25] MED LIST changes: +ALBU2.5V8 IH; +LISI10TA16 PO; -LISI10TA2 PO
[2020-08-13 16:40] VITALS: BP 199/88
[2020-08-13] MEDS ORDERED: MORPHINE SULFATE 4 MG/ML VIAL. IV ONE ×2 (17:00→19:00)
[2020-08-13] MEDS ORDERED: ONDANSETRON PF 4 MG/2 ML VIAL. IV ONE (17:00)
[2020-08-13] MEDS ORDERED: IV NORMAL SALINE 1000ML BAG 1,000 ML IV ONE (17:00)
[2020-08-13 17:31] LABS: BASO # 0.1 x10^3/uL (0.0-0.2); BASO % 1 % (0-3); EOS # 0.1 x10^3/uL (0.0-0.7); EOS % 1 % (0-3); HEMATOCRIT 38.7 % (36.0-47.0); HEMOGLOBIN 12.9 g/dL (12.0-15.5); LYMPH # 2.6 x10^3/uL (1.0-4.8); LYMPH % 27 % (24-48); MEAN CORPUSCULAR HEMOGLOBIN 30 pg (25-35); MEAN CORPUSCULAR HGB CONC 33 g/dL (31-37); MEAN CORPUSCULAR VOLUME 89 fL (79-100); MONO # 0.7 x10^3/uL (0.0-1.1); MONO % 7 % (0-9); NEUT # 6.2 x10^3/uL (1.8-7.7); NEUT % 65 % (31-73); PLATELET COUNT 244 x10^3/uL (140-400); RED BLOOD COUNT 4.36 x10^6/uL (3.50-5.40); WHITE BLOOD COUNT 9.5 x10^3/uL (4.0-11.0)
[2020-08-13 19:00] LABS: CALCIUM 8.1 mg/dL (8.5-10.1); CREATININE 0.7 mg/dL (0.6-1.0); GFR 84.5; POTASSIUM 4.4 mmol/L (3.5-5.1)
[2020-08-13] MEDS ORDERED: IOHEXOL 300 MG/ML 100ML VIAL. IV ONE (19:15)
[2020-08-13] MEDS ORDERED: CONTRAST GIVEN. MC PRN (19:30)
--- NOTE | 2020-08-13 20:06 | RAD ---
CT HEAD/BRAIN WO, CT MAXILLOFACIAL WITH IV CONTRAST History: Reason: r facial swelling and dental pain headache/ Spl. Instructions: / History: Comparison: None. Technique: Noncontrast CT imaging was performed of the head was performed. Maxillofacial CT with intravenous contrast. Coronal and sagittal reconstructions were performed. Exposure: One or more of the following individualized dose reduction techniques were utilized for thi s examination: 1. Automated exposure control 2. Adjustment of the mA and/or kV according to patient size 3. Use of iterative reconstruction technique. Findings: Head CT: No intracranial hemorrhage. No mass effect. No hydrocephalus. Extra-axial spaces are unrema rkable. Maxillofacial CT: Nose ring degrades evaluation of adjacent paranasal structures. Extensive multifocal maxillary carious dentition with periodontal disease. No mandibular teeth. Right anterior ward-maxillary soft tissue abscess measures 1.4 x 0.7 cm with adjacent inflammatory ch anges. Orbits are unremarkable. Minimal inferior maxillary sinus mucosal thickening. Mastoid air cells are c lear. No acute calvarial fracture. Impression: Head CT: 1. No acute intracranial abnormality. Maxillofacial CT: 1. Extensive maxillary carious dentition with periodontal disease. 2. Right anterior ward-maxillary soft tissue abscess with adjacent inflammatory changes. Electronically signed by: Tien Toledo DO (08/13/2020 8:03 PM) [facility]
[2020-08-13] MEDS ORDERED: HYDR-2761 PO ×2 (20:17→20:19)
[2020-08-13] MEDS ORDERED: AMOX1TAB61 PO (20:17)
--- NOTE | 2020-08-13 20:20 | ED.ADGEN ---
Past Medical History Past Medical History: Asthma, High Cholesterol, Hypertension Additional Past Medical Histor: SEASONAL ALLERGIES Past Surgical History: Other Additional Past Surgical Histo: Patient is poor historian. Patient has an incision scar across abdomen Smoking Status: Current Every Day Smoker Alcohol Use: None Drug Use: None General Adult EDM: Chief Complaint: FACE PROBLEM HPI: HPI: Patient is a 65 year old [place] woman, accompanied by family, who presents emergency department with complaints of right side facial pain, redness, swellin g, and dental pain that began yesterday. Patient denies any fever, cough, body aches, rash, shortness of breath, chest pain, abdominal pain, nausea, vomiting, diarrhea, or vision changes. Patient reports that her whole head hurts. She currently rates pain a 10 out of 10 on the pain scale, she denies any alleviating factors, patient did not speak Serbian therefore her family member translated for her and the [employer] shirt ironer line was also used. Review of Systems: Review of Systems: Complete ROS is negative unless otherwise noted in HPI. Current Medications: Current Medications Medications (Trade) Dose Ordered Sig/Mily Start Time Stop Time Status Last Admin Dose Admin Amoxicillin/ Clavulanate Potassium (Augmentin 875/ 125mg) 1 tab 1X ONCE 08/13/20 20:30 08/13/20 20:31 DC 08/13/20 20:44 1 TAB Info (CONTRAST GIVEN -- Rx MONITORING) 1 each PRN DAILY PRN 08/13/20 19:30 08/13/20 20:55 DC Iohexol (Omnipaque 300 Mg/ml) 75 ml 1X ONCE 08/13/20 19:15 08/13/20 19:16 DC 08/13/20 19:37 75 ML Morphine Sulfate (Morphine Sulfate) 4 mg 1X ONCE 08/13/20 19:00 08/13/20 19:01 DC 08/13/20 19:46 4 MG Ondansetron HCl (Zofran) 4 mg 1X ONCE 08/13/20 17:00 08/13/20 17:01 DC 08/13/20 17:27 4 MG Sodium Chloride 1,000 ml @ 1,000 mls/hr 1X ONCE 08/13/20 17:00 08/13/20 17:59 DC 08/13/20 17:27 1,000 MLS/HR Allergies: Allergies: Allergies Coded Allergies Type Severity Reaction Last Updated Verified lisinopril Allergy Intermediate 10/30/18 Yes simvastatin Allergy Intermediate 10/30/18 Yes Physical Exam: PE: See Above Constitutional: Well developed, well nourished, moderate distress, appears uncomfortable, HENT: Normocephalic, atraumatic, bilateral external ears normal, bilateral TMs normal, nose normal; multiple broken teeth and dental caries to the front maxilla, no visible or palpable dental abscess, right maxillary sinus erythemic, warm to touch, and tender to palpation Eyes: PERRLA, EOMI, conjunctiva normal, no discharge. [] Neck: Normal range of motion, supple, nontender, no stridor. [] Cardiovascular:Heart rate regular rhythm Lungs & Thorax: Respirations even and unlabored, no retractions, no respiratory distress Skin: Warm, dry, no rash. [] Extremities: No cyanosis, ROM intact, no edema. [] Neurologic: Alert and oriented X 3, no focal deficits noted. [] Psychologic: Affect normal, judgement normal, mood normal. [] Current Patient Data: Labs: Laboratory Tests Test 08/13/20 17:20 08/13/20 18:40 White Blood Count 9.5 x10^3/uL (4.0-11.0) Red Blood Count 4.36 x10^6/uL (3.50-5.40) Hemoglobin 12.9 g/dL (12.0-15.5) Hematocrit 38.7 % (36.0-47.0) Mean Corpuscular Volume 89 fL (79-100) Mean Corpuscular Hemoglobin 30 pg (25-35) Mean Corpuscular Hemoglobin Concent 33 g/dL (31-37) Red Cell Distribution Width 15.0 % (11.5-14.5) H Platelet Count 244 x10^3/uL (140-400) Neutrophils (%) (Auto) 65 % (31-73) Lymphocytes (%) (Auto) 27 % (24-48) Monocytes (%) (Auto) 7 % (0-9) Eosinophils (%) (Auto) 1 % (0-3) Basophils (%) (Auto) 1 % (0-3) Neutrophils # (Auto) 6.2 x10^3/uL (1.8-7.7) Lymphocytes # (Auto) 2.6 x10^3/uL (1.0-4.8) Monocytes # (Auto) 0.7 x10^3/uL (0.0-1.1) Eosinophils # (Auto) 0.1 x10^3/uL (0.0-0.7) Basophils # (Auto) 0.1 x10^3/uL (0.0-0.2) Sodium Level 142 mmol/L (136-145) Potassium Level 4.4 mmol/L (3.5-5.1) Chloride Level 106 mmol/L (98-107) Carbon Dioxide Level 28 mmol/L (21-32) Anion Gap 8 (6-14) Blood Urea Nitrogen 10 mg/dL (7-20) Creatinine 0.7 mg/dL (0.6-1.0) Estimated GFR (Cockcroft-Gault) 84.5 Glucose Level 112 mg/dL (70-99) H Calcium Level 8.1 mg/dL (8.5-10.1) L Laboratory Tests 08/13/20 17:20 Laboratory Tests 08/13/20 18:40 Vital Signs: Vital Signs Date Time Temp Pulse Resp B/P (MAP) Pulse Ox O2 Delivery O2 Flow Rate FiO2 08/13/20 19:46 Room Air 08/13/20 16:40 98.2 82 16 199/88 (125) 99 98.2 EKG: EKG: [] Heart Score: C/O Chest Pain: No Risk Factors: Risk Factors: DM, Current or recent (<one month) smoker, HTN, HLP, family history of CAD, obesity. Risk Scores: Score 0 - 3: 2.5% MACE over next 6 weeks - Discharge Home Score 4 - 6: 20.3% MACE over next 6 weeks - Admit for Clinical Observation Score 7 - 10: 72.7% MACE over next 6 weeks - Early Invasive Strategies Radiology/Procedures: Radiology/Procedures: PROCEDURE: CT MAXILLOFACIAL W/CONTRAST CT HEAD/BRAIN WO, CT MAXILLOFACIAL WITH IV CONTRAST History: Reason: r facial swelling and dental pain headache/ Spl. Instructions: / History: Comparison: None. Technique: Noncontrast CT imaging was performed of the head was performed. Maxillofacial CT with intravenous contrast. Coronal and sagittal reconstructions were performed. Exposure: One or more of the following individualized dose reduction techniques were utilized for this examination: 1. Automated exposure control 2. Adjustment of the mA and/or kV according to patient size 3. Use of iterative reconstruction technique. Findings: Head CT: No intracranial hemorrhage. No mass effect. No hydrocephalus. Extra- axial spaces are unremarkable. Maxillofacial CT: Nose ring degrades evaluation of adjacent paranasal structures. Extensive multifocal maxillary carious dentition with periodontal disease. No mandibular teeth. Right anterior ward-maxillary soft tissue abscess measures 1.4 x 0.7 cm with adjacent inflammatory changes. Orbits are unremarkable. Minimal inferior maxillary sinus mucosal thickening. Mastoid air cells are clear. No acute calvarial fracture. Impression: Head CT: 1. No acute intracranial abnormality. Maxillofacial CT: 1. Extensive maxillary carious dentition with periodontal disease. 2. Right anterior ward-maxillary soft tissue abscess with adjacent inflammatory changes. [] Course & Med Decision Making: Course & Med Decision Making Pertinent Labs and Imaging studies reviewed. (See chart for details) [] Dragon Disclaimer: Dragon Disclaimer: This electronic medical record was generated, in whole or in part, using a voice recognition dictation system. Departure Departure Impression: Primary Impression: Dentalgia Additional Impressions: Infected dental caries Acute abscess of face Disposition: HOME / SELF CARE / HOMELESS Condition: STABLE Referrals: NERI HAMILTON MD (PCP) YURIDIA TORRES MD Patient Instructions: Dental Abscess, Dental Pain, [id number] Additional Instructions: Fill prescription(s) and use as directed. Follow up with dentist using the referral list provided. Recommend that you follow up with ENT specialist Dr. Torres about the abscess near your sinus. Return to the ER if symptoms worsen or fever develops. Scripts Hydrocodone Bit/Acetaminophen (HYDROCODONE-APAP 5-325 ) 1 Tab Tablet 1 TAB PO PRN Q6HRS PRN for PAIN for 3 Days, #12 TAB 0 Refills Prov: TOBIN BENTON AMPOULE FILLER 08/13/20 Amoxicillin/Potassium Clav (AUGMENTIN 875-125 TABLET) 1 Each Tablet 1 TAB PO BID for 10 Days, #20 TAB 0 Refills Prov: TOBIN BENTON APRN 08/13/20 Attending Signature Attending Signature I have participated in the care of this patient and I have reviewed and agree with all pertinent clinical information above including history, exam, and recommendations. Problem Qualifiers TOBIN BENTON AMPOULE FILLER Aug 13, 2020 20:20 ISAMAR ASENCIO MD Aug 14, 2020 18:15
[2020-08-13] MEDS ORDERED: AMOXICILLIN/K CLAV 875/125MG TABLET. PO ONE (20:30)
== END 2020-08-13 20:49 | disposition home or self-care (01) ==
LOC: ER 14:25
DX: K02.9 Dental caries, unspecified (principal); L02.01 Cutaneous abscess of face; K08.89 Other specified disorders of teeth and supporting structures; R60.0 Localized edema; J45.909 Unspecified asthma, uncomplicated; E78.00 Pure hypercholesterolemia, unspecified; I10 Essential (primary) hypertension; F17.200 Nicotine dependence, unspecified, uncomplicated; Z98.890 Other specified postprocedural states; Z88.8 Allergy status to other drugs, medicaments and biological substances
CPT/HCPCS: 36415; 70450; 70487; 80048; 85025; 96361; 96374; 96375; 96376; 99285; J2270; J2405; J7030; Q9967

== ENCOUNTER 2020-12-18 10:47 | Inpatient (IN) | payer MEDICAID ==
[~2020-12-18] VITALS: Ht 175.3 cm; Wt 41.9 kg
[~2020-12-18 10:47] MED LIST changes: -DOXY100C2 PO; +DOXY100C3 PO; +METH-572 PO; -METH10TA2 PO; +MIRT-7 PO; -MIRT15TA3 PO; -OMEP40CA45 PO; +OMEP40CA7 PO
[2020-12-18 12:10] LABS: BASO # 0.1 x10^3/uL (0.0-0.2); BASO % 1 % (0-3); EOS # 0.1 x10^3/uL (0.0-0.7); EOS % 1 % (0-3); HEMATOCRIT 34.2 % (36.0-47.0); HEMOGLOBIN 11.5 g/dL (12.0-15.5); LYMPH # 2.4 x10^3/uL (1.0-4.8); LYMPH % 27 % (24-48); MEAN CORPUSCULAR HEMOGLOBIN 29 pg (25-35); MEAN CORPUSCULAR HGB CONC 34 g/dL (31-37); MEAN CORPUSCULAR VOLUME 86 fL (79-100); MONO # 0.8 x10^3/uL (0.0-1.1); MONO % 9 % (0-9); NEUT # 5.5 x10^3/uL (1.8-7.7); NEUT % 62 % (31-73); PLATELET COUNT 214 x10^3/uL (140-400); RED BLOOD COUNT 3.97 x10^6/uL (3.50-5.40); RED CELL DISTRIBUTION WIDTH 15.5 % (11.5-14.5); WHITE BLOOD COUNT 8.8 x10^3/uL (4.0-11.0)
[2020-12-18 12:21] LABS: CALCIUM 8.4 mg/dL (8.5-10.1); CREATININE 0.8 mg/dL (0.6-1.0); GFR 72.4; POTASSIUM 4.8 mmol/L (3.5-5.1)
--- NOTE | 2020-12-18 12:26 | RAD ---
XR CHEST 1V Clinical History: Reason: cough, soa / Spl. Instructions: / History: Technique: AP view of the chest was obtained at 12/18/2020 12:01 PM. Comparison: September 09, 2020. Findings: The cardiomediastinal silhouette is normal. The pulmonary vessels are top normal limits in size. Ther e is perihilar and basilar linear reticular opacities. Median sternotomy wires are again seen. Impression: Bilateral interstitial infiltrates could be CHF or atypical pneumonia. Electronically signed by: Samm Martino III, MD (12/18/2020 12:23 PM) [facility]
[2020-12-18 12:28] LABS: ALBUMIN 3.6 g/dL (3.4-5.0); ALBUMIN/GLOBULIN RATIO 0.8 (1.0-1.7); TOTAL BILIRUBIN 0.3 mg/dL (0.2-1.0); TOTAL PROTEIN 7.9 g/dL (6.4-8.2)
[2020-12-18 12:52] LABS: BASE EXCESS ABG 0 mmol/L (-3-3); HCO3 ABG 27 mmol/L (21-28); PCO2 ABG 59 mmHg (35-46); PO2 ABG 81 mmHg (65-108); SAT O2 ABG 95 % (92-99)
[2020-12-18 12:54] LABS: FIO2 ABG 24%
--- NOTE | 2020-12-18 13:55 | PHYS DOC ---
Past Medical History Past Medical History: Asthma, High Cholesterol, Hypertension Additional Past Medical Histor: SEASONAL ALLERGIES Past Surgical History: Other Additional Past Surgical Histo: OPEN HEART Smoking Status: Current Every Day Smoker Alcohol Use: None Drug Use: None General Adult EDM: Chief Complaint: COUGH HPI: HPI: 65-year-old female past medical history of CAD, hyperlipidemia, anxiety, on methadone and history of chronic tobacco use, presents to the ED with complaints of cough, fever, shortness of breath and myalgias. Per RN patient was 80% on room air on arrival, increased to 95% on 2 L. Received Covid vaccine in August. Review of Systems: Review of Systems: Constitutional: Denies chills. [] Eyes: Denies change in visual acuity. [] HENT: Denies nasal congestion or sore throat. [] Respiratory: Denies hemoptysis or tachypnea Cardiovascular: Denies syncope or paliptations GI: Denies abdominal pain, nausea, vomiting, bloody stools or diarrhea. [] : Denies dysuria or hematuria Musculoskeletal: Denies back pain or joint pain. [] Integument: Denies rash or diaphoresis Neurologic: Denies focal weakness or sensory changes. [] Endocrine: Denies polyuria or polydipsia. [] Lymphatic: Denies swollen glands. [] Psychiatric: Denies depression or anxiety. [] Heart Score: C/O Chest Pain: No Risk Factors: Risk Factors: DM, Current or recent (<one month) smoker, HTN, HLP, family history of CAD, obesity. Risk Scores: Score 0 - 3: 2.5% MACE over next 6 weeks - Discharge Home Score 4 - 6: 20.3% MACE over next 6 weeks - Admit for Clinical Observation Score 7 - 10: 72.7% MACE over next 6 weeks - Early Invasive Strategies Allergies: Allergies: Allergies Coded Allergies Type Severity Reaction Last Updated Verified lisinopril Allergy Intermediate 10/30/18 Yes simvastatin Allergy Intermediate 10/30/18 Yes Physical Exam: PE: Constitutional: Well developed, well nourished, no acute distress, non-toxic appearance. HENT: Normocephalic, atraumatic, Eyes: EOMI, conjunctiva normal, no discharge. Neck: Normal range of motion, supple, Cardiovascular: S1/2 present, regular rhythm Lungs & Thorax: Speaking in full sentences, bilateral equal chest rise, no tachypnea or increased work of breathing Abdomen: soft, no tenderness, Skin: Warm, dry, no erythema, no rash. [] Back: No tenderness, no CVA tenderness. [] Extremities: No tenderness, no cyanosis, no lower extremity edema Neurologic: Alert and oriented X 3, normal motor function, normal sensory function, no focal deficits noted. [] Psychologic: Affect normal, judgement normal, mood normal. [] Current Patient Data: Labs: Laboratory Tests Test 12/18/20 11:50 12/18/20 12:14 White Blood Count 8.8 x10^3/uL (4.0-11.0) Red Blood Count 3.97 x10^6/uL (3.50-5.40) Hemoglobin 11.5 g/dL (12.0-15.5) L Hematocrit 34.2 % (36.0-47.0) L Mean Corpuscular Volume 86 fL (79-100) Mean Corpuscular Hemoglobin 29 pg (25-35) Mean Corpuscular Hemoglobin Concent 34 g/dL (31-37) Red Cell Distribution Width 15.5 % (11.5-14.5) H Platelet Count 214 x10^3/uL (140-400) Neutrophils (%) (Auto) 62 % (31-73) Lymphocytes (%) (Auto) 27 % (24-48) Monocytes (%) (Auto) 9 % (0-9) Eosinophils (%) (Auto) 1 % (0-3) Basophils (%) (Auto) 1 % (0-3) Neutrophils # (Auto) 5.5 x10^3/uL (1.8-7.7) Lymphocytes # (Auto) 2.4 x10^3/uL (1.0-4.8) Monocytes # (Auto) 0.8 x10^3/uL (0.0-1.1) Eosinophils # (Auto) 0.1 x10^3/uL (0.0-0.7) Basophils # (Auto) 0.1 x10^3/uL (0.0-0.2) Sodium Level 138 mmol/L (136-145) Potassium Level 4.8 mmol/L (3.5-5.1) Chloride Level 103 mmol/L (98-107) Carbon Dioxide Level 29 mmol/L (21-32) Anion Gap 6 (6-14) Blood Urea Nitrogen 19 mg/dL (7-20) Creatinine 0.8 mg/dL (0.6-1.0) Estimated GFR (Cockcroft-Gault) 72.4 BUN/Creatinine Ratio 24 (6-20) H Glucose Level 98 mg/dL (70-99) Lactic Acid Level 0.7 mmol/L (0.4-2.0) Calcium Level 8.4 mg/dL (8.5-10.1) L Total Bilirubin 0.3 mg/dL (0.2-1.0) Aspartate Amino Transferase (AST) 27 U/L (15-37) Alanine Aminotransferase (ALT) 28 U/L (14-59) Alkaline Phosphatase 115 U/L (46-116) Creatine Kinase 158 U/L (26-192) Troponin I Quantitative < 0.017 ng/mL (0.000-0.055) HV-Hpm-O-Type Natriuretic Peptide 2278 pg/mL (0-124) H Total Protein 7.9 g/dL (6.4-8.2) Albumin 3.6 g/dL (3.4-5.0) Albumin/Globulin Ratio 0.8 (1.0-1.7) L SARS-CoV-2 Antigen (Rapid) Negative (NEGATIVE) O2 Saturation 95 % (92-99) Arterial Blood pH 7.28 (7.35-7.45) L Arterial Blood pCO2 at Patient Temp 59 mmHg (35-46) H Arterial Blood pO2 at Patient Temp 81 mmHg (65-108) Arterial Blood HCO3 27 mmol/L (21-28) Arterial Blood Base Excess 0 mmol/L (-3-3) FiO2 24% Laboratory Tests 12/18/20 11:50 Laboratory Tests 12/18/20 11:50 Vital Signs: Vital Signs Date Time Temp Pulse Resp B/P (MAP) Pulse Ox O2 Delivery O2 Flow Rate FiO2 12/18/20 11:32 98.6 63 16 118/61 (79) 96 High Flow Nasal Cannula 2.0 98.6 EKG: EK Atrial flutter 64 bpm, no axis deviation, normal intervals, no T wave inversions, no ST elevations or ST depressions 1447 sinus rhythm 60 bpm, no axis deviation, normal intervals, T wave inversion lead III, no ST elevations or ST depressions Radiology/Procedures: Radiology/Procedures: [] Signed PATIENT: OUSMANE WANG ACCOUNT: [id number] : 1955 LOCATION: ER AGE: 65 SEX: F EXAM STATUS: PRE ER ORD. PHYSICIAN: BROOK TRAORE DO REASON: cough, soa PROCEDURE: PORTABLE CHEST 1V XR CHEST 1V Clinical History: Reason: cough, soa / Spl. Instructions: / History: Technique: AP view of the chest was obtained at 12/18/2020 12:01 PM. Comparison: September 09, 2020. Findings: The cardiomediastinal silhouette is normal. The pulmonary vessels are top normal limits in size. There is perihilar and basilar linear reticular opacities. Median sternotomy wires are again seen. Impression: Bilateral interstitial infiltrates could be CHF or atypical pneumonia. Electronically signed by: Marimar Singh III, MD (12/18/2020 12:23 PM) [facility] DICTATED and SIGNED BY: MARIMAR SINGH III, MD DATE: 12/18/20 [id number] 0 Course & Med Decision Making: Course & Med Decision Making Pertinent Labs and Imaging studies reviewed. (See chart for details) COVID-19 CRITERIA: The patient was evaluated during the global COVID-19 pandemic, and that diagnosis was suspected/considered upon their initial presentation. Their evaluation, treatment and testing was consistent with current guidelines for patients who present with complaints or symptoms that may be related to COVID-19. On reevaluation and speaking with son, (patient consents to his/her/their knowledge and involvement in pts' medical care), who speaks Japanese, via pts' cell phone, and is concerned for patient's "swelling/fluffiness" and pt, now c/o chest pain. I do not appreciated loewr extremity edema on pe. Chest x-ray concerning for possible atypical infiltrate versus CHF. 2019 echo w/50-55% EF. Patient supported with nasal cannula. Will admit for further medical management. Patient stable at time of admission and agrees to this plan. I have spoken with the patient and/or caregivers. I have explained the pat ient's condition, diagnosis and treatment plan based on the information available to me at this time. I have answered the patient's and/or caregivers questions and answered any concerns. The patient and/or caregivers have as good an understanding of the patient's diagnosis, condition and treatment plan as can be expected at this point. The patient has been stabilized within the capability of the emergency department. The patient will be transported for further care and management or will be moved to an observation or inpatient service. I have communicated with the staff or medical practitioner taking over this patient's care. Dragon Disclaimer: Dragon Disclaimer: This electronic medical record was generated, in whole or in part, using a voice recognition dictation system. Departure Departure Impression: Primary Impression: Person under investigation for COVID-19 Additional Impressions: Hypercapnemia Hypoxemia requiring supplemental oxygen Chest pain Disposition: ADMITTED INPATIENT Admitting Physician: MARILYNN (Dr. Cao) Condition: STABLE Referrals: NERI HAMILTON MD (PCP) BROOK TRAORE DO Dec 18, 2020 13:54
[2020-12-18] MEDS ORDERED: DEXAMETHASONE SOD PHOS 20 MG/5 ML VIAL. IV ONE (14:00)
[2020-12-18] MEDS ORDERED: AZITHRMYCN 500MG IVPB FOR OMNI 250 ML IV ONE (14:00)
[2020-12-18] MEDS ORDERED: cefTRIAXone IV Push 1 GM VIAL. IVP ONE (14:00)
--- NOTE | 2020-12-18 15:17 | PDOC1 ---
History and Physical Date of Admission Date of Admission DATE: 12/18/20 TIME: 15:12 Identification/Chief Complaint Chief Complaint Shortness of breath Source Source: Patient History of Present Illness History of Present Illness Ms Meredith is a 64yo F singaporean speaking only w/ PMHx CAD s/p CABG, HTN, chronic pain on methadone, chronic bronchitis, smoker who presented to ED c/o shortness of breath, cough. 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 C/o cough, SOB, body aches, sore throat, DELATORRE which have progressed over the past 3 days. She has had both COVID vaccinations, 2nd Pfizer vaccine August 2020. Initially with O2 saturation 81% on RA, up to 96% on 2LNC. Patient has an inhaler but she states is not helping. No recent travel or sick contacts. Denies fever, nausea, vomiting, diarrhea, abdominal pain, syncope, focal weakness, numbness or tingling. She is a bit drowsy, her son notes this is pretty normal for her after taking her home methadone. ABG pH 7.2 on 24% FiO2, WBC 8.8, Hb 11.5, platelets 214, NA 138, K4.8, BUN 19, CR 0.8, glucose 98, calcium 8.4, LFTs within normal laboratory limits, NT proBNP 2278, troponin 0, lactic acid 0.7, rapid COVID-19 negative. EKG appears to be sinus rhythm 60 bpm, no axis deviation, normal intervals, T wave inversion lead III, no ST elevations or ST depressions Chest radiograph with diffuse bilateral interstitial infiltrates and bibasilar bronchial wall thickening Offered BIPAP in ED, but after lasix administration her RR and HR slowed a bit and her son requested to hold off on bipap as she becomes claustophobic. CTPA ordered by ED physician and due to patient inability to lay flat this is delayed as well. Admitted for further care Past Medical History Cardiovascular: CAD, CHF, HTN, Hyperlipidemia Pulmonary: COPD CENTRAL NERVOUS SYSTEM: Other GI: GERD Heme/Onc: No pertinent hx Hepatobiliary: No pertinent hx Psych: Anxiety Musculoskeletal: Osteoarthritis Rheumatologic: No pertinent hx Infectious disease: No pertinent hx Renal/: No pertinent hx Endocrine: No pertinent hx Past Surgical History Past Surgical History: CABG Family History Family History: Family History Unknown Family History: Other Social History Smoke: 2 packs per day ALCOHOL: none Drugs: None Current Problem List Problem List Problems Medical Problems: (1) Hypercapnemia Status: Acute (2) Hypoxemia requiring supplemental oxygen Status: Acute (3) Person under investigation for COVID-19 Status: Acute Current Medications Current Medications Current Medications Ceftriaxone Sodium (Rocephin) 1 gm 1X ONCE IVP ; Start 12/18/20 at 14:00; Stop 12/18/20 at 14:01; Status DC Dexamethasone Sodium Phosphate (Decadron) 10 mg 1X ONCE IV ; Start 12/18/20 at 14:00; Stop 12/18/20 at 14:01; Status DC Azithromycin 250 ml @ 250 mls/hr 1X ONCE IV ; Start 12/18/20 at 14:00; Stop 12/18/20 at 14:59; Status DC Active Scripts Active Prednisone 20 Mg Tablet 20 Mg PO DAILY 5 Days Hydrocodone-Apap 5-325 (Hydrocodone Bit/Acetaminophen) 1 Tab Tablet 1 Tab PO PRN Q6HRS PRN 3 Days Proair Hfa (Albuterol Sulfate) 8.5 Gm Hfa.aer.ad 2 Puff IH PRN Q4-6HRS PRN 21 Days Lasix (Furosemide) 40 Mg Tablet 1 Tab PO DAILY Klor-Con M20 (Potassium Chloride) 20 Meq Tab.er.prt 20 Meq PO DAILYWBKFT 14 Days Carvedilol (Carvedilol) 12.5 Mg Tablet 12.5 Mg PO BIDWMEALS Amlodipine Besylate 5 Mg Tablet 5 Mg PO DAILY Clopidogrel (Clopidogrel Bisulfate) 75 Mg Tablet 1 Tab PO DAILY Reported Prilosec Otc (Omeprazole Magnesium) 20 Mg Tablet.dr 20 Mg PO DAILY Methadone Hcl 10 Mg Tablet 15 Mg PO DAILY Aspir 81 (Aspirin) 81 Mg Tablet.dr 1 Tab PO DAILY Ranitidine Hcl 150 Mg Tablet 1 Tab PO BID Atorvastatin Calcium 20 Mg Tablet 1 Tab PO DAILY Mirtazapine 15 Mg Tablet 1 Tab PO QHS NITROGLYCERIN SubLingual (Nitroglycerin) 0.4 Mg Tab.subl 0.4 Mg SL PRN Q5MIN Allergies Allergies: Coded Allergies: lisinopril (Verified Allergy, Intermediate, 10/30/18) simvastatin (Verified Allergy, Intermediate, 10/30/18) ROS General: YES: Fatigue, Malaise; No: Chills, Night Sweats, Appetite, Other PSYCHOLOGICAL ROS: YES: Anxiety; No: Behavioral Disorder, Concentration difficultie, Decreased libido, Depression, Disorientation, Hallucinations, Hostility, Irritablity, Memory difficulties, Mood Swings, Obsessive thoughts, Physical abuse, Sexual abuse, Sleep disturbances, Suicidal ideation, Other Eyes: No Blurry vision, No Decreased vision, No Double vision, No Dry eyes, No Excessive tearing, No Eye Pain, No Itchy Eyes, No Loss of vision, No Photophobia, No Scotomata, No Uses contacts, No Uses glasses, No Other HEENT: YES: Heacaches; No: Visual Changes, Hearing change, Nasal congestion, Nasal discharge, Oral lesions, Sinus pain, Sore Throat, Epistaxis, Sneezing, Snoring, Tinnitus, Vertigo, Vocal changes, Other ALLERGY AND IMMUNOLOGY: No: Hives, Insect Bite Sensitivity, Itchy/Watery Eyes, Nasal Congestion, Post Nasal Drip, Seasonal Allergies, Other Hematological and Lymphatic: No: Bleeding Problems, Blood Clots, Blood Transfusions, Brusing, Night Sweats, Pallor, Swollen Lymph Nodes, Other ENDOCRINE: No: Breast Changes, Galactorrhea, Hair Pattern Changes, Hot Flashes, Malaise/lethargy, Mood Swings, Palpitations, Polydipsia/polyuria, Skin Changes, Temperature Intolerance, Unexpected Weight Changes, Other Breast: No New/Changing Breast Lumps, No Nipple changes, No Nipple discharge, No Other Respiratory: YES: Cough, Shortness of breath, SOB with excertion, Tachypnea, Wheezing; No: Hemoptysis, Orthopnea, Pleuritic Pain, Sputum Changes, Stridor, Other Cardiovascular: yes Orthopnea, yes Paroxysmal Noc. Dyspnea; No Chest Pain, No Palpitations, No Edema, No Lt Headedness, No Other Gastrointestinal: No Nausea, No Vomiting, No Abdominal Pain, No Diarrhea, No Constipation, No Melena, No Hematochezia, No Other Genitourinary: No Dysuria, No Frequency, No Incontinence, No Hematuria, No Retention, No Discharge, No Urgency, No Pain, No Flank Pain, No Other, No , No , No , No , No , No , No Musculoskeletal: Yes Joint Pain, Yes Joint Stiffness, Yes Muscle Pain; No Gait Disturbance, No Joint Swelling, No Muscular Weakness, No Pain In:, No Swelling In:, No Other Neurological: No Behavorial Changes, No Bowel/Bladder ControlChng, No Confusion, No Dizziness, No Gait Disturbance, No Headaches, No Impaired Coord/balance, No Memory Loss, No Numbness/Tingling, No Seizures, No Speech Problems, No Tremors, No Visual Changes, No Weakness, No Other Skin: No Dry Skin, No Eczema, No Hair Changes, No Lumps, No Mole Changes, No Mottling, No Nail Changes, No Pruritus, No Rash, No Skin Lesion Changes, No Other, No Acne Physical Exam General: Alert, Oriented X3, Cooperative, mild distress HEENT: Atraumatic, PERRLA, EOMI, Mucous membr. moist/pink, Other (Nosering in place) Lungs: Other (Bilateral scattered wheezes and bibasilar crackles) Heart: S1S2, RRR, no thrills, no rubs, no gallops, no murmurs Abdomen: Normal bowel sounds, Soft, No tenderness, No hepatosplenomegaly, No masses Rectal Exam: not examined Extremities: No clubbing, No cyanosis, No edema, Normal pulses, No tenderness/swelling Skin: No rashes, No breakdown, No significant lesion Neuro: Normal gait, Normal speech, Strength at 5/5 X4 ext, Normal tone, Sensat ion intact, Cranial nerves 3-12 NL, Reflexes 2+ Psych/Mental Status: Mood NL, Other (Drowsy) Vitals Vitals Vital Signs Date Time Temp Pulse Resp B/P (MAP) Pulse Ox O2 Delivery O2 Flow Rate FiO2 12/18/20 14:36 96 Nasal Cannula 4.0 12/18/20 14:01 62 112/57 (75) 12/18/20 11:32 98.6 16 98.6 Labs Labs Laboratory Tests Test 12/18/20 11:50 12/18/20 12:14 White Blood Count 8.8 x10^3/uL (4.0-11.0) Red Blood Count 3.97 x10^6/uL (3.50-5.40) Hemoglobin 11.5 g/dL (12.0-15.5) Hematocrit 34.2 % (36.0-47.0) Mean Corpuscular Volume 86 fL (79-100) Mean Corpuscular Hemoglobin 29 pg (25-35) Mean Corpuscular Hemoglobin Concent 34 g/dL (31-37) Red Cell Distribution Width 15.5 % (11.5-14.5) Platelet Count 214 x10^3/uL (140-400) Neutrophils (%) (Auto) 62 % (31-73) Lymphocytes (%) (Auto) 27 % (24-48) Monocytes (%) (Auto) 9 % (0-9) Eosinophils (%) (Auto) 1 % (0-3) Basophils (%) (Auto) 1 % (0-3) Neutrophils # (Auto) 5.5 x10^3/uL (1.8-7.7) Lymphocytes # (Auto) 2.4 x10^3/uL (1.0-4.8) Monocytes # (Auto) 0.8 x10^3/uL (0.0-1.1) Eosinophils # (Auto) 0.1 x10^3/uL (0.0-0.7) Basophils # (Auto) 0.1 x10^3/uL (0.0-0.2) Sodium Level 138 mmol/L (136-145) Potassium Level 4.8 mmol/L (3.5-5.1) Chloride Level 103 mmol/L (98-107) Carbon Dioxide Level 29 mmol/L (21-32) Anion Gap 6 (6-14) Blood Urea Nitrogen 19 mg/dL (7-20) Creatinine 0.8 mg/dL (0.6-1.0) Estimated GFR (Cockcroft-Gault) 72.4 BUN/Creatinine Ratio 24 (6-20) Glucose Level 98 mg/dL (70-99) Lactic Acid Level 0.7 mmol/L (0.4-2.0) Calcium Level 8.4 mg/dL (8.5-10.1) Total Bilirubin 0.3 mg/dL (0.2-1.0) Aspartate Amino Transf (AST/SGOT) 27 U/L (15-37) Alanine Aminotransferase (ALT/SGPT) 28 U/L (14-59) Alkaline Phosphatase 115 U/L (46-116) Creatine Kinase 158 U/L (26-192) Troponin I Quantitative < 0.017 ng/mL (0.000-0.055) WX-Wjw-P-Type Natriuretic Peptide 2278 pg/mL (0-124) Total Protein 7.9 g/dL (6.4-8.2) Albumin 3.6 g/dL (3.4-5.0) Albumin/Globulin Ratio 0.8 (1.0-1.7) SARS-CoV-2 Antigen (Rapid) Negative (NEGATIVE) O2 Saturation 95 % (92-99) Arterial Blood pH 7.28 (7.35-7.45) Arterial Blood pCO2 at Patient Temp 59 mmHg (35-46) Arterial Blood pO2 at Patient Temp 81 mmHg (65-108) Arterial Blood HCO3 27 mmol/L (21-28) Arterial Blood Base Excess 0 mmol/L (-3-3) FiO2 24% Laboratory Tests Test 12/18/20 11:50 12/18/20 12:14 White Blood Count 8.8 x10^3/uL (4.0-11.0) Red Blood Count 3.97 x10^6/uL (3.50-5.40) Hemoglobin 11.5 g/dL (12.0-15.5) Hematocrit 34.2 % (36.0-47.0) Mean Corpuscular Volume 86 fL (79-100) Mean Corpuscular Hemoglobin 29 pg (25-35) Mean Corpuscular Hemoglobin Concent 34 g/dL (31-37) Red Cell Distribution Width 15.5 % (11.5-14.5) Platelet Count 214 x10^3/uL (140-400) Neutrophils (%) (Auto) 62 % (31-73) Lymphocytes (%) (Auto) 27 % (24-48) Monocytes (%) (Auto) 9 % (0-9) Eosinophils (%) (Auto) 1 % (0-3) Basophils (%) (Auto) 1 % (0-3) Neutrophils # (Auto) 5.5 x10^3/uL (1.8-7.7) Lymphocytes # (Auto) 2.4 x10^3/uL (1.0-4.8) Monocytes # (Auto) 0.8 x10^3/uL (0.0-1.1) Eosinophils # (Auto) 0.1 x10^3/uL (0.0-0.7) Basophils # (Auto) 0.1 x10^3/uL (0.0-0.2) Sodium Level 138 mmol/L (136-145) Potassium Level 4.8 mmol/L (3.5-5.1) Chloride Level 103 mmol/L (98-107) Carbon Dioxide Level 29 mmol/L (21-32) Anion Gap 6 (6-14) Blood Urea Nitrogen 19 mg/dL (7-20) Creatinine 0.8 mg/dL (0.6-1.0) Estimated GFR (Cockcroft-Gault) 72.4 BUN/Creatinine Ratio 24 (6-20) Glucose Level 98 mg/dL (70-99) Lactic Acid Level 0.7 mmol/L (0.4-2.0) Calcium Level 8.4 mg/dL (8.5-10.1) Total Bilirubin 0.3 mg/dL (0.2-1.0) Aspartate Amino Transf (AST/SGOT) 27 U/L (15-37) Alanine Aminotransferase (ALT/SGPT) 28 U/L (14-59) Alkaline Phosphatase 115 U/L (46-116) Creatine Kinase 158 U/L (26-192) Troponin I Quantitative < 0.017 ng/mL (0.000-0.055) DZ-Xnx-Q-Type Natriuretic Peptide 2278 pg/mL (0-124) Total Protein 7.9 g/dL (6.4-8.2) Albumin 3.6 g/dL (3.4-5.0) Albumin/Globulin Ratio 0.8 (1.0-1.7) SARS-CoV-2 Antigen (Rapid) Negative (NEGATIVE) O2 Saturation 95 % (92-99) Arterial Blood pH 7.28 (7.35-7.45) Arterial Blood pCO2 at Patient Temp 59 mmHg (35-46) Arterial Blood pO2 at Patient Temp 81 mmHg (65-108) Arterial Blood HCO3 27 mmol/L (21-28) Arterial Blood Base Excess 0 mmol/L (-3-3) FiO2 24% Images Images Chest radiograph: The cardiomediastinal silhouette is normal. The pulmonary vessels are top normal limits in size. There is perihilar and basilar linear reticular opacities. Median sternotomy wires are again seen. Impression: Bilateral interstitial infiltrates could be CHF or atypical pneumonia. VTE Prophylaxis Ordered VTE Prophylaxis Devices: Yes VTE Pharmacological Prophylaxi: Yes Assessment/Plan Assessment/Plan A/P: Acute hypoxic and hypercapnic respiratory failure - likely secondary to mild acute bronchitis and Acute on chronic congestive heart failure with diastolic dysfunction. COVID pending Acute on chronic heart failure, suspect systolic and diastolic - IV lasix ordered. Daily weights, strict I/O. BB, arb, statin, ASA Abnormal chest radiograph - will treat as pneumonia wtih doxycycline, given azithromycin and rocephin in ED, Treat as copd exacerbation given smoking history CAD - s/p CABG in 2012 last PCI and stenting as per records 2013. Stable, will trend troponins, cont home medications, telemetry HLD - statin COPD with emphysema - will start nebs if COVID 19 negative, steroids, antibiotics for severe exacerbation, doxycycline Smoker - counseled on cessation, promises to quit this time GERD - PPI Normocytic anemia - iron deficient previously HTN - cont home meds Chronic pain - will cont home meds, consider methadone decrease given her hypercapnea FEN - Cardiac diet PPX - lovenox FULL CODE Dispo - inpatient Justifications for Admission Other Justification RIVAS BAZAN MD Dec 18, 2020 15:16
[2020-12-18] MEDS ORDERED: IOHEXOL 350 MG/ML 100 ML VIAL. IV ONE (15:45)
[2020-12-18] MEDS ORDERED: CONTRAST GIVEN. MC PRN (15:45)
[2020-12-18] MEDS ORDERED: FUROSEMIDE 40 MG/4 ML VIAL. IVP ONE (16:45)
[2020-12-18] MEDS ORDERED: ALBUTEROL SULFATE 2.5 MG/3 ML NEBU. NEB PRN (18:45)
[2020-12-18] MEDS ORDERED: hydrALAZINE 20 MG/ML VIAL. IVP PRN (18:45)
[2020-12-18] MEDS ORDERED: guaiFENesin DM 200MG/20MG 10 ML SYRUP PO PRN (18:45)
[2020-12-18] MEDS ORDERED: ONDANSETRON PF 4 MG/2 ML VIAL. IVP PRN (18:45)
[2020-12-18] MEDS ORDERED: ACETAMINOPHEN 325 MG TABLET. PO PRN (18:45)
[2020-12-18 19:00] VITALS: BP 156/67
[2020-12-18] MEDS: BUDESONIDE 0.5 MG/2 ML NEBU. NEB SCH (20:36)
[2020-12-18] MEDS: IPRATRPIUM/ALBUTEROL 0.5/2.5MG 3 ML NEBU. NEB SCH (20:36)
[2020-12-18] MEDS: DOXYCYCLINE HYCLATE 100 MG in IV DEXTROSE 5% 100ML 100 ML IV SCH (21:36)
[2020-12-18] MEDS: MIRTAZAPINE 15 MG TABLET PO SCH (21:36)
[2020-12-18] MEDS: ATORVASTATIN CALCIUM 20 MG TABLET PO SCH (21:36)
--- NOTE | 2020-12-18 21:52 | EKG ---
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
[2020-12-18 22:30] VITALS: BP 138/87
[2020-12-19 02:42] VITALS: BP 124/60
[2020-12-19] MEDS: methylPREDNISolone SOD SUCC PF 40 MG/ML VIAL. IV SCH ×3 (06:24→20:41)
[2020-12-19] MEDS: IPRATRPIUM/ALBUTEROL 0.5/2.5MG 3 ML NEBU. NEB SCH ×4 (06:28→21:30)
[2020-12-19] MEDS: BUDESONIDE 0.5 MG/2 ML NEBU. NEB SCH ×2 (06:28→21:30)
[2020-12-19 07:19] LABS: CALCIUM 8.4 mg/dL (8.5-10.1); CREATININE 0.7 mg/dL (0.6-1.0); GFR 84.5; MAGNESIUM 2.2 mg/dL (1.8-2.4); POTASSIUM 3.3 mmol/L (3.5-5.1)
[2020-12-19 07:27] VITALS: BP 126/58
[2020-12-19] MEDS: CLOPIDOGREL BISULFATE 75 MG TABLET PO SCH (09:28)
[2020-12-19] MEDS: PANTOPRAZOLE 40 MG TABLET.DR. PO SCH (09:28)
[2020-12-19] MEDS: METHADONE 5 MG TABLET. PO SCH (09:29)
[2020-12-19] MEDS: ASPIRIN ENTERIC COATED 81 MG TABLET.DR. PO SCH (09:29)
[2020-12-19] MEDS: CARVEDILOL 12.5 MG TABLET. PO SCH ×2 (09:30→17:54)
[2020-12-19] MEDS: FUROSEMIDE 40 MG/4 ML VIAL. IVP SCH (09:35)
[2020-12-19] MEDS: DOXYCYCLINE HYCLATE 100 MG in IV DEXTROSE 5% 100ML 100 ML IV SCH ×2 (09:36→20:41)
[2020-12-19 11:04] VITALS: BP 118/69
[2020-12-19 14:12] VITALS: BP 112/59
--- NOTE | 2020-12-19 14:55 | NUR ---
SS following for discharge planning. SS reviewed pt chart and discussed with pt RN. Pt is from home and is currently requiring oxygen at four liters nasal canula. COVID19 negative. Pt on IV Lasix, IV Doxycycline, and IV Solu Medrol. SS will continue to follow for discharge planning.
[2020-12-19] MEDS ORDERED: POTASSIUM CHLORIDE 20 MEQ TABLET.ER. PO ONE (17:30)
--- NOTE | 2020-12-19 17:48 | PDOC ---
[employer] PROGRESS NOTE Date of Service DOS: DATE: 12/19/20 TIME: 17:45 Chief Complaint Chief Complaint SOB History of Present Illness History of Present Illness Ms Meredith is a 64yo F surinamese speaking only w/ PMHx CAD s/p CABG, HTN, chronic pain on methadone, chronic bronchitis, smoker who presented to ED c/o shortness of breath, cough. 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 C/o cough, SOB, body aches, sore throat, DELATORRE which have progressed over the past 3 days. She has had both COVID vaccinations, 2nd Pfizer vaccine August 2020. Initially with O2 saturation 81% on RA, up to 96% on 2LNC. Patient has an inhaler but she states is not helping. No recent travel or sick contacts. Denies fever, nausea, vomiting, diarrhea, abdominal pain, syncope, focal weakness, numbness or tingling. She is a bit drowsy, her son notes this is pretty normal for her after taking her home methadone. ABG pH 7.2 on 24% FiO2, WBC 8.8, Hb 11.5, platelets 214, NA 138, K4.8, BUN 19, CR 0.8, glucose 98, calcium 8.4, LFTs within normal laboratory limits, NT proBNP 2278, troponin 0, lactic acid 0.7, rapid COVID-19 negative. EKG appears to be sinus rhythm 60 bpm, no axis deviation, normal intervals, T wave inversion lead III, no ST elevations or ST depressions Chest radiograph with diffuse bilateral interstitial infiltrates and bibasilar bronchial wall thickening Offered BIPAP in ED, but after lasix administration her RR and HR slowed a bit and her son requested to hold off on bipap as she becomes claustophobic. CTPA ordered by ED physician and due to patient inability to lay flat this is delayed as well. Admitted for further care 12/19 Patient evaluated at bedside. Still requiring 4L NC but says he feels like it has improved somewhat. Continue current plan. Vitals/I&O Vitals/I&O: Vital Signs Date Time Temp Pulse Resp B/P (MAP) Pulse Ox O2 Delivery O2 Flow Rate FiO2 12/19/20 15:50 97 Nasal Cannula 2.0 12/19/20 14:12 98.2 56 18 112/59 (76) 98.2 I & O 12/18/20 12/18/20 12/19/20 15:00 23:00 07:00 Intake Total 0 ml Output Total 600 ml Balance -600 ml 0 ml Physical Exam General: Alert, Oriented X3, Cooperative, mild distress Heart: Regular rate, Normal S2 Lungs: Crackles Abdomen: Normal bowel sounds, Soft, No tenderness, No hepatosplenomegaly, No masses Extremities: No clubbing, No cyanosis, No edema, Normal pulses, No tenderness/swelling Skin: No rashes, No breakdown, No significant lesion Labs Labs: Laboratory Tests Test 12/19/20 05:50 Sodium Level 140 mmol/L (136-145) Potassium Level 3.3 mmol/L (3.5-5.1) Chloride Level 103 mmol/L (98-107) Carbon Dioxide Level 32 mmol/L (21-32) Anion Gap 5 (6-14) Blood Urea Nitrogen 17 mg/dL (7-20) Creatinine 0.7 mg/dL (0.6-1.0) Estimated GFR (Cockcroft-Gault) 84.5 Glucose Level 144 mg/dL (70-99) Calcium Level 8.4 mg/dL (8.5-10.1) Magnesium Level 2.2 mg/dL (1.8-2.4) Troponin I Quantitative < 0.017 ng/mL (0.000-0.055) Assessment and Plan Assessmemt and Plan Problems Medical Problems: (1) Hypercapnemia Status: Acute (2) Hypoxemia requiring supplemental oxygen Status: Acute (3) Person under investigation for COVID-19 Status: Acute /P: Acute hypoxic and hypercapnic respiratory failure - likely secondary to mild acute bronchitis and Acute on chronic congestive heart failure with diastolic dysfunction. COVID pending Acute on chronic heart failure, suspect systolic and diastolic - IV lasix ordered. Daily weights, strict I/O. BB, arb, statin, ASA Abnormal chest radiograph - will treat as pneumonia wtih doxycycline, given azithromycin and rocephin in ED, Treat as copd exacerbation given smoking his tory CAD - s/p CABG in 2013 last PCI and stenting as per records 2013. Stable, will trend troponins, cont home medications, telemetry HLD - statin COPD with emphysema - will start steroids, antibiotics for severe exacerbation, doxycycline Smoker - counseled on cessation, promises to quit this time GERD - PPI Normocytic anemia - iron deficient previously HTN - cont home meds Chronic pain - will cont home meds FEN - Cardiac diet PPX - lovenox FULL CODE Dispo - inpatient Comment Review of Relevant I have reviewed the following items argenis (where applicable) has been applied. Medications: Current Medications Medications (Trade) Dose Ordered Sig/Mily Route PRN Reason Start Time Stop Time Status Last Admin Dose Admin Budesonide (Pulmicort) 0.5 mg RTBID NEB 12/18/20 20:00 12/19/20 06:28 Albuterol/ Ipratropium (Duoneb) 3 ml RTQID NEB 12/18/20 20:00 12/19/20 15:50 Doxycycline Hyclate 100 mg/ Dextrose 100 ml @ 50 mls/hr Q12HR IV 12/18/20 21:00 12/19/20 09:36 Aspirin (Ecotrin) 81 mg DAILY PO 12/19/20 09:00 12/19/20 09:29 Atorvastatin Calcium (Lipitor) 20 mg QHS PO 12/18/20 21:00 12/18/20 21:36 Carvedilol (Coreg) 12.5 mg BIDWMEALS PO 12/19/20 08:00 12/19/20 09:30 Clopidogrel Bisulfate (Plavix) 75 mg DAILY PO 12/19/20 09:00 12/19/20 09:28 Methadone HCl (Dolophine) 5 mg DAILY PO 12/19/20 09:00 12/19/20 09:29 Mirtazapine (Remeron) 15 mg QHS PO 12/18/20 21:00 12/18/20 21:36 Pantoprazole Sodium (Protonix) 40 mg DAILYAC PO 12/19/20 07:30 12/19/20 09:28 Furosemide (Lasix) 40 mg DAILY IVP 12/19/20 09:00 12/21/20 08:59 12/19/20 09:35 Methylprednisolone Sodium Succinate (SOLU-Medrol 40MG VIAL) 40 mg Q8HRS IV 12/19/20 06:15 12/19/20 22:01 12/19/20 14:14 Justifications for Admission Other Justification RIVAS VELEZ MD Dec 19, 2020 17:48
[2020-12-19 19:47] VITALS: BP 101/54
[2020-12-19] MEDS: MIRTAZAPINE 15 MG TABLET PO SCH (20:40)
[2020-12-19] MEDS: ATORVASTATIN CALCIUM 20 MG TABLET PO SCH (20:40)
[2020-12-19 22:30] VITALS: BP 115/56
[2020-12-20 02:39] VITALS: BP 118/56
[2020-12-20 07:39] VITALS: BP 123/59
[2020-12-20] MEDS: BUDESONIDE 0.5 MG/2 ML NEBU. NEB SCH ×2 (08:23→21:05)
[2020-12-20] MEDS: IPRATRPIUM/ALBUTEROL 0.5/2.5MG 3 ML NEBU. NEB SCH ×4 (08:24→21:05)
[2020-12-20] MEDS: DOXYCYCLINE HYCLATE 100 MG in IV DEXTROSE 5% 100ML 100 ML IV SCH (09:58)
[2020-12-20] MEDS: FUROSEMIDE 40 MG/4 ML VIAL. IVP SCH (09:59)
[2020-12-20] MEDS: CLOPIDOGREL BISULFATE 75 MG TABLET PO SCH (09:59)
[2020-12-20] MEDS: CARVEDILOL 12.5 MG TABLET. PO SCH ×2 (09:59→19:26)
[2020-12-20] MEDS: METHADONE 5 MG TABLET. PO SCH (09:59)
[2020-12-20] MEDS: ASPIRIN ENTERIC COATED 81 MG TABLET.DR. PO SCH (09:59)
[2020-12-20] MEDS: PANTOPRAZOLE 40 MG TABLET.DR. PO SCH (09:59)
[2020-12-20 10:19] VITALS: BP 111/53
[2020-12-20] MEDS ORDERED: FUROSEMIDE 40 MG TABLET. PO ONE (10:30)
[2020-12-20] MEDS ORDERED: POTASSIUM CHLORIDE 20 MEQ TABLET.ER. PO ONE (10:30)
[2020-12-20] MEDS: DOXYCYCLINE HYCLATE 100 MG TABLET PO SCH ×2 (12:08→19:49)
[2020-12-20 14:16] VITALS: BP 119/58
--- NOTE | 2020-12-20 16:43 | PDOC ---
[employer] PROGRESS NOTE Date of Service DOS: DATE: 12/20/20 TIME: 16:41 Chief Complaint Chief Complaint SOB History of Present Illness History of Present Illness Ms Meredith is a 64yo F palauan speaking only w/ PMHx CAD s/p CABG, HTN, chronic pain on methadone, chronic bronchitis, smoker who presented to ED c/o shortness of breath, cough. 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 C/o cough, SOB, body aches, sore throat, DELATORRE which have progressed over the past 3 days. She has had both COVID vaccinations, 2nd Pfizer vaccine August 2020. Initially with O2 saturation 81% on RA, up to 96% on 2LNC. Patient has an inhaler but she states is not helping. No recent travel or sick contacts. Denies fever, nausea, vomiting, diarrhea, abdominal pain, syncope, focal weakness, numbness or tingling. She is a bit drowsy, her son notes this is pretty normal for her after taking her home methadone. ABG pH 7.2 on 24% FiO2, WBC 8.8, Hb 11.5, platelets 214, NA 138, K4.8, BUN 19, CR 0.8, glucose 98, calcium 8.4, LFTs within normal laboratory limits, NT proBNP 2278, troponin 0, lactic acid 0.7, rapid COVID-19 negative. EKG appears to be sinus rhythm 60 bpm, no axis deviation, normal intervals, T wave inversion lead III, no ST elevations or ST depressions Chest radiograph with diffuse bilateral interstitial infiltrates and bibasilar bronchial wall thickening Offered BIPAP in ED, but after lasix administration her RR and HR slowed a bit and her son requested to hold off on bipap as she becomes claustophobic. CTPA ordered by ED physician and due to patient inability to lay flat this is delayed as well. Admitted for further care 12/19 Patient evaluated at bedside. Still requiring 4L NC but says he feels like it has improved somewhat. Continue current plan. 12/20 Patient evaluated at bedside. She was endorsing dizziness while resting in bed thus refused 6-minute walk test. Otherwise continue current treatment measures. Hopeful for discharge in the next day or 2. Vitals/I&O Vitals/I&O: Vital Signs Date Time Temp Pulse Resp B/P (MAP) Pulse Ox O2 Delivery O2 Flow Rate FiO2 12/20/20 15:29 Nasal Cannula 2.0 12/20/20 14:16 98.1 79 16 119/58 (78 93 98.1 I & O 12/19/20 12/19/20 12/20/20 15:00 23:00 07:00 Intake Total 0 ml 0 ml 0 ml Output Total 300 ml Balance 0 ml -300 ml 0 ml Physical Exam General: Alert, Oriented X3, Cooperative, mild distress Heart: Regular rate, Normal S2 Lungs: Crackles Abdomen: Normal bowel sounds, Soft, No tenderness, No hepatosplenomegaly, No masses Extremities: No clubbing, No cyanosis, No edema, Normal pulses, No tenderness/ swelling Skin: No rashes, No breakdown, No significant lesion Assessment and Plan Assessmemt and Plan Problems Medical Problems: (1) Chest pain Status: Acute (2) Hypercapnemia Status: Acute (3) Hypoxemia requiring supplemental oxygen Status: Acute (4) Person under investigation for COVID-19 Status: Acute /P: Acute hypoxic and hypercapnic respiratory failure, community-acquired pneumonia - likely secondary to mild acute bronchitis and Acute on chronic congestive heart failure with diastolic dysfunction. COVID pending Acute on chronic heart failure, suspect systolic and diastolic - IV lasix ordered. Daily weights, strict I/O. BB, arb, statin, ASA Abnormal chest radiograph - will treat as pneumonia wtih doxycycline, given azithromycin and rocephin in ED, Treat as copd exacerbation given smoking history CAD - s/p CABG in 2012 last PCI and stenting as per records 2013. Stable, will trend troponins, cont home medications, telemetry HLD - statin COPD with emphysema - will start steroids, antibiotics for severe exacerbation, doxycycline Smoker - counseled on cessation, promises to quit this time GERD - PPI Normocytic anemia - iron deficient previously HTN - cont home meds Chronic pain - will cont home meds FEN - Cardiac diet PPX - lovenox FULL CODE Dispo - inpatient Comment Review of Relevant I have reviewed the following items argenis (where applicable) has been applied. Medications: Current Medications Medications (Trade) Dose Ordered Sig/Mily Route PRN Reason Start Time Stop Time Status Last Admin Dose Admin Potassium Chloride (Klor-Con) 40 meq 1X ONCE PO 12/19/20 17:30 12/19/20 17:31 DC 12/19/20 17:53 Doxycycline Hyclate (Vibra-Tab) 100 mg BID PO 12/20/20 10:30 12/20/20 12:08 Furosemide (Lasix) 40 mg 1X ONCE PO 12/20/20 10:30 12/20/20 10:31 DC 12/20/20 12:09 Potassium Chloride (Klor-Con) 40 meq 1X ONCE PO 12/20/20 10:30 12/20/20 10:31 DC 12/20/20 12:09 Justifications for Admission Other Justification RIVAS VELEZ MD Dec 20, 2020 16:43
[2020-12-20] MEDS: MIRTAZAPINE 15 MG TABLET PO SCH (19:49)
[2020-12-20] MEDS: LACTOBACILLUS RHAMNOSUS GG 1 CAPSULE. PO SCH (19:49)
[2020-12-20] MEDS: ATORVASTATIN CALCIUM 20 MG TABLET PO SCH (19:49)
[2020-12-20 19:53] VITALS: BP 108/54
[2020-12-20 22:26] VITALS: BP 111/53
[2020-12-20] MEDS: CITALOPRAM 10 MG TABLET. PO SCH (23:16)
[2020-12-21 02:35] VITALS: BP 150/78
[2020-12-21 07:00] VITALS: BP 129/62
[2020-12-21] MEDS: IPRATRPIUM/ALBUTEROL 0.5/2.5MG 3 ML NEBU. NEB SCH ×4 (07:23→20:37)
[2020-12-21] MEDS: BUDESONIDE 0.5 MG/2 ML NEBU. NEB SCH ×2 (07:23→20:37)
[2020-12-21] MEDS: CARVEDILOL 12.5 MG TABLET. PO SCH ×2 (08:34→17:35)
[2020-12-21] MEDS: LACTOBACILLUS RHAMNOSUS GG 1 CAPSULE. PO SCH ×2 (08:34→20:30)
[2020-12-21] MEDS: METHADONE 5 MG TABLET. PO SCH (08:35)
[2020-12-21] MEDS: DOXYCYCLINE HYCLATE 100 MG TABLET PO SCH ×2 (08:35→20:30)
[2020-12-21] MEDS: ASPIRIN ENTERIC COATED 81 MG TABLET.DR. PO SCH (08:35)
[2020-12-21] MEDS: CITALOPRAM 10 MG TABLET. PO SCH (08:35)
[2020-12-21] MEDS: CLOPIDOGREL BISULFATE 75 MG TABLET PO SCH (08:35)
[2020-12-21] MEDS: PANTOPRAZOLE 40 MG TABLET.DR. PO SCH (08:35)
[2020-12-21 11:00] VITALS: BP 116/55
--- NOTE | 2020-12-21 14:25 | NUR ---
SS following up with discharge planning. SS reviewed pt chart and discussed with pt RN. Pt was on two liters oxygen this morning. COVID19 negative. Six minute walk completed and no home oxygen needed. Probable discharge to home later today. SS will continue to follow for discharge planning.
--- NOTE | 2020-12-21 15:26 | PDOC ---
[facility] PROGRESS NOTE Date of Service DOS: DATE: 12/21/20 TIME: 15:24 Chief Complaint Chief Complaint SOB History of Present Illness History of Present Illness Ms Meredith is a 64yo F guatemalan speaking only w/ PMHx CAD s/p CABG, HTN, chronic pain on methadone, chronic bronchitis, smoker who presented to ED c/o shortness of breath, cough. Public Relations Studies Director phone via [employer] utilized and son, Tavo, beds ashok as well. C/o cough, SOB, body aches, sore throat, DELATORRE which have progressed over the past 3 days. She has had both COVID vaccinations, 2nd Pfizer vaccine August 2020. Initially with O2 saturation 81% on RA, up to 96% on 2LNC. Patient has an inhaler but she states is not helping. No recent travel or sick contacts. Denies fever, nausea, vomiting, diarrhea, abdominal pain, syncope, focal weakness, numbness or tingling. She is a bit drowsy, her son notes this is pretty normal for her after taking her home methadone. ABG pH 7.2 on 24% FiO2, WBC 8.8, Hb 11.5, platelets 214, NA 138, K4.8, BUN 19, CR 0.8, glucose 98, calcium 8.4, LFTs within normal laboratory limits, NT proBNP 2278, troponin 0, lactic acid 0.7, rapid COVID-19 negative. EKG appears to be sinus rhythm 60 bpm, no axis deviation, normal intervals, T wave inversion lead III, no ST elevations or ST depressions Chest radiograph with diffuse bilateral interstitial infiltrates and bibasilar bronchial wall thickening Offered BIPAP in ED, but after lasix administration her RR and HR slowed a bit and her son requested to hold off on bipap as she becomes claustophobic. CTPA ordered by ED physician and due to patient inability to lay flat this is delayed as well. Admitted for further care 12/19 Patient evaluated at bedside. Still requiring 4L NC but says he feels like it has improved somewhat. Continue current plan. 12/20 Patient evaluated at bedside. She was endorsing dizziness while resting in bed thus refused 6-minute walk test. Otherwise continue current treatment measures. Hopeful for discharge in the next day or 2. 12/21 Valuated bedside. Passed 6-minute walk this morning family still requesting home oxygen. Discussed with residential support worker who recommended nocturnal pulse ox. We will do this tonight with likely discharge tomorrow. Vitals/I&O Vitals/I&O: Vital Signs Date Time Temp Pulse Resp B/P (MAP) Pulse Ox O2 Delivery O2 Flow Rate FiO2 12/21/20 11:53 98 Nasal Cannula 2.0 12/21/20 11:00 98.3 63 16 116/55 (75) 98.3 I & O 12/20/20 12/20/20 12/21/20 15:00 23:00 07:00 Intake Total 440 ml 1025 ml 200 ml Output Total 600 ml Balance -160 ml 1025 ml 200 ml Physical Exam General: Alert, Oriented X3, Cooperative, mild distress Heart: Regular rate, Normal S2 Lungs: Crackles Abdomen: Normal bowel sounds, Soft, No tenderness, No hepatosplenomegaly, No masses Extremities: No clubbing, No cyanosis, No edema, Normal pulses, No tenderness/swelling Skin: No rashes, No breakdown, No significant lesion Assessment and Plan Assessmemt and Plan Problems Medical Problems: (1) Chest pain Status: Acute (2) Hypercapnemia Status: Acute (3) Hypoxemia requiring supplemental oxygen Status: Acute (4) Person under investigation for COVID-19 Status: Acute Acute hypoxic and hypercapnic respiratory failure, community-acquired pneumonia - likely secondary to mild acute bronchitis and Acute on chronic congestive heart failure with diastolic dysfunction. COVID pending Acute on chronic heart failure, suspect systolic and diastolic - IV lasix ordered. Daily weights, strict I/O. BB, arb, statin, ASA Abnormal chest radiograph - will treat as pneumonia wtih doxycycline, given azithromycin and rocephin in ED, Treat as copd exacerbation given smoking history CAD - s/p CABG in 2013 last PCI and stenting as per records 2013. Stable, will trend troponins, cont home medications, telemetry HLD - statin COPD with emphysema - will start steroids, antibiotics for severe exacerbation, doxycycline Smoker - counseled on cessation, promises to quit this time GERD - PPI Normocytic anemia - iron deficient previously HTN - cont home meds Chronic pain - will cont home meds FEN - Cardiac diet PPX - lovenox FULL CODE Dispo - inpatient Comment Review of Relevant I have reviewed the following items argenis (where applicable) has been applied. Medications: Current Medications Medications (Trade) Dose Ordered Sig/Mily Route PRN Reason Start Time Stop Time Status Last Admin Dose Admin Lactobacillus Rhamnosus (Culturelle) 1 cap BID PO 12/20/20 21:00 12/21/20 08:34 Citalopram Hydrobromide (CeleXA) 10 mg DAILY PO 12/20/20 22:15 12/21/20 08:35 Justifications for Admission Other Justification RIVAS VELEZ MD Dec 21, 2020 15:25
[2020-12-21 15:30] VITALS: BP 154/72
[2020-12-21 19:11] VITALS: BP 125/58
[2020-12-21] MEDS: MIRTAZAPINE 15 MG TABLET PO SCH (20:30)
[2020-12-21] MEDS: ATORVASTATIN CALCIUM 20 MG TABLET PO SCH (20:30)
[2020-12-21 22:20] VITALS: BP 109/52
[2020-12-22 02:32] VITALS: BP 158/82
[2020-12-22] MEDS: IPRATRPIUM/ALBUTEROL 0.5/2.5MG 3 ML NEBU. NEB SCH ×2 (05:41→11:13)
[2020-12-22] MEDS: BUDESONIDE 0.5 MG/2 ML NEBU. NEB SCH (05:41)
[2020-12-22 07:00] VITALS: BP 190/88
[2020-12-22] MEDS: LACTOBACILLUS RHAMNOSUS GG 1 CAPSULE. PO SCH (08:41)
[2020-12-22] MEDS: DOXYCYCLINE HYCLATE 100 MG TABLET PO SCH (08:41)
[2020-12-22] MEDS: CARVEDILOL 12.5 MG TABLET. PO SCH (08:41)
[2020-12-22] MEDS: CITALOPRAM 10 MG TABLET. PO SCH (08:41)
[2020-12-22] MEDS: ASPIRIN ENTERIC COATED 81 MG TABLET.DR. PO SCH (08:41)
[2020-12-22] MEDS: CLOPIDOGREL BISULFATE 75 MG TABLET PO SCH (08:41)
[2020-12-22] MEDS: PANTOPRAZOLE 40 MG TABLET.DR. PO SCH (08:42)
[2020-12-22] MEDS: METHADONE 5 MG TABLET. PO SCH (08:42)
[2020-12-22 10:41] VITALS: BP 169/82
[2020-12-22] MEDS ORDERED: DOXY100T PO (11:34)
--- NOTE | 2020-12-22 12:35 | NUR ---
SS following up with discharge planning. SS reviewed pt chart and discussed with pt RN. Pt is currently on room air. Pt did not qualify for oxygen on six minute walk or overnight oximetry. Discharge order on the chart for home with self care.
--- NOTE | 2020-12-22 15:00 | NUR ---
Discharge Note: MEGHNA WANG [facility] Discharge instructions and discharge home medications reviewed with Patient and a copy given. All questions have been answered and understanding verbalized. The following instructions and handouts were given: COPD, smoking cessation, PNA IV discontinued, no complications. Patient's son at bedside during discharge Patient discharged to home with self care. Patient given script for PRN home O2 if they decide to. All belongings taken home with patient.
--- NOTE | 2020-12-22 15:49 | PDOC3 ---
[facility]-Discharge Summary Date of Admission: Date of Admission: Dec 18, 2020 Date of Discharge: Date of Discharge: Dec 22, 2020 Admission Diagnosis: Problems: (1) Hypoxemia requiring supplemental oxygen (2) Hypercapnemia (3) COPD exacerbation (4) CAP (community acquired pneumonia) Hospital Course: Hospital Course: istory of Present Illness Ms Meredith is a 64yo F equatorial guinean speaking only w/ PMHx CAD s/p CABG, HTN, chronic pain on methadone, chronic bronchitis, smoker who presented to ED c/o shortness of breath, cough. Aircraft Ordnance Technician phone via [place] [employer] Document Preparation utilized and son, Tavo, bedside as well. C/o cough, SOB, body aches, sore throat, DELATORRE which have progressed over the past 3 days. She has had both COVID vaccinations, 2nd Pfizer vaccine August 2020. Initially with O2 saturation 81% on RA, up to 96% on 2LNC. Patient has an inhaler but she states is not helping. No recent travel or sick contacts. Denies fever, nausea, vomiting, diarrhea, abdominal pain, syncope, focal weakness, numbness or tingling. She is a bit drowsy, her son notes this is pretty normal for her after taking her home methadone. ABG pH 7.2 on 24% FiO2, WBC 8.8, Hb 11.5, platelets 214, NA 138, K4.8, BUN 19, CR 0.8, glucose 98, calcium 8.4, LFTs within normal laboratory limits, NT proBNP 2278, troponin 0, lactic acid 0.7, rapid COVID-19 negative. EKG appears to be sinus rhythm 60 bpm, no axis deviation, normal intervals, T wave inversion lead III, no ST elevations or ST depressions Chest radiograph with diffuse bilateral interstitial infiltrates and bibasilar bronchial wall thickening Offered BIPAP in ED, but after lasix administration her RR and HR slowed a bit and her son requested to hold off on bipap as she becomes claustophobic. CTPA ordered by ED physician and due to patient inability to lay flat this is delayed as well. Admitted for further care 12/19 Patient evaluated at bedside. Still requiring 4L NC but says he feels like it has improved somewhat. Continue current plan. 12/20 Patient evaluated at bedside. She was endorsing dizziness while resting in bed thus refused 6-minute walk test. Otherwise continue current treatment measures. Hopeful for discharge in the next day or 2. 12/21 Valuated bedside. Passed 6-minute walk this morning family still requesting home oxygen. Discussed with social science professor who recommended nocturnal pulse ox. We will do this tonight with likely discharge tomorrow. 12/22 Patient passed overnight nocturnal pulse ox test. He waited at bedside this morning doing well. Discharge home today. Disposition: Disposition/Orders: D/C to Home Activity: Activity: Resume previous activity Diet: Diet: Regular Medications: Home Meds Active Scripts Doxycycline Hyclate (DOXYCYCLINE HYCLATE) 100 Mg Tablet, 100 MG PO BID for cap for 5 Days, #10 TAB Prov:RIVAS VELEZ MD 12/22/20 Hydrocodone Bit/Acetaminophen (HYDROCODONE-APAP 5-325 ) 1 Tab Tablet, 1 TAB PO PRN Q6HRS PRN for PAIN for 3 Days, #12 TAB 0 Refills Prov:TOBIN BENTON SCREEN EXAMINER 08/13/20 Albuterol Sulfate (Proair Hfa) 8.5 Gm Hfa.aer.ad, 2 PUFF IH PRN Q4-6HRS PRN for wheezing for 21 Days, #1 INHALER 0 Refills Prov:JACOB PEREZ DO 04/10/20 Carvedilol (CARVEDILOL ) 12.5 Mg Tablet, 12.5 MG PO BIDWMEALS for htn, #60 TAB Prov:BIANCA MATHEW MD 10/31/18 Amlodipine Besylate (AMLODIPINE BESYLATE) 5 Mg Tablet, 5 MG PO DAILY for htn, #60 TAB Prov:BIANCA MATHEW MD 10/31/18 Clopidogrel Bisulfate (CLOPIDOGREL) 75 Mg Tablet, 1 TAB PO DAILY for cad, #90 TAB 1 Refill Prov:BIANCA MATHEW MD 10/31/18 Reported Medications Omeprazole Magnesium (PRILOSEC OTC) 20 Mg Tablet.dr, 20 MG PO DAILY, TAB 09/27/15 Methadone Hcl (METHADONE HCL) 10 Mg Tablet, 15 MG PO DAILY, TAB 09/25/15 Aspirin (ASPIR 81) 81 Mg Tablet.dr, 1 TAB PO DAILY, #30 TAB 5 Refills 09/25/15 Atorvastatin Calcium (ATORVASTATIN CALCIUM) 20 Mg Tablet, 1 TAB PO DAILY, #30 TAB 5 Refills 09/25/15 Mirtazapine (MIRTAZAPINE) 15 Mg Tablet, 1 TAB PO QHS, #30 TAB 3 Refills 09/25/15 Nitroglycerin (NITROGLYCERIN SubLingual) 0.4 Mg Tab.subl, 0.4 MG SL PRN Q5MIN 03/29/13 Discontinued Reported Medications Ranitidine Hcl (RANITIDINE HCL) 150 Mg Tablet, 1 TAB PO BID, #180 TAB 3 Refills 09/25/15 Discontinued Scripts Prednisone (PREDNISONE) 20 Mg Tablet, 20 MG PO DAILY for COPD for 5 Days, #5 TAB Prov:ANDREAS JIN MD 09/12/20 Furosemide (LASIX) 40 Mg Tablet, 1 TAB PO DAILY for chf, #14 TAB 1 Refill Prov:BIANCA MATHEW MD 10/31/18 Potassium Chloride (KLOR-CON M20) 20 Meq Tab.er.prt, 20 MEQ PO DAILYWBKFT for chf for 14 Days, #14 TAB.SR Prov:BIANCA MATHEW MD 10/31/18 Scheduled Amlodipine Besylate (Amlodipine Besylate), 5 MG PO DAILY Aspirin (Aspir 81), 1 TAB PO DAILY, (Reported) Atorvastatin Calcium (Atorvastatin Calcium), 1 TAB PO DAILY, (Reported) Carvedilol (Carvedilol ), 12.5 MG PO BIDWMEALS Clopidogrel Bisulfate (Clopidogrel), 1 TAB PO DAILY Doxycycline Hyclate (Doxycycline Hyclate), 100 MG PO BID Methadone Hcl (Methadone Hcl), 15 MG PO DAILY, (Reported) Mirtazapine (Mirtazapine), 1 TAB PO QHS, (Reported) Nitroglycerin (NITROGLYCERIN SubLingual), 0.4 MG SL PRN Q5MIN, (Reported) Omeprazole Magnesium (Prilosec Otc), 20 MG PO DAILY, (Reported) Scheduled PRN Albuterol Sulfate (Proair Hfa), 2 PUFF IH PRN Q4-6HRS PRN for wheezing Hydrocodone Bit/Acetaminophen (Hydrocodone-Apap 5-325 ), 1 TAB PO PRN Q6HRS PRN for PAIN Discontinued Medications Furosemide (Lasix), 1 TAB PO DAILY Potassium Chloride (Klor-Con M20), 20 MEQ PO DAILYWBKFT Prednisone (Prednisone), 20 MG PO DAILY Ranitidine Hcl (Ranitidine Hcl), 1 TAB PO BID, (Reported) Justicifation of Admission Dx: Justifications for Admission: Justification of Admission Dx: Yes RVIAS VELEZ MD Dec 22, 2020 15:49
== END 2020-12-22 16:06 | disposition home or self-care (01) | DRG 193 ==
LOC: ER 10:47 → 6 SOUTH 13:53
PROVIDERS: ADMIT Internal Medicine; ATTEND Internal Medicine
PROC: 5A0935A Assistance with Respiratory Ventilation, Less than 24 Consecutive Hours, High Flow/Velocity Cannula (ICD-10-PCS; principal; 2020-12-18)
DX: J18.9 Pneumonia, unspecified organism (principal); J96.01 Acute respiratory failure with hypoxia; I11.0 Hypertensive heart disease with heart failure; J20.9 Acute bronchitis, unspecified; E78.00 Pure hypercholesterolemia, unspecified; E78.5 Hyperlipidemia, unspecified; F17.210 Nicotine dependence, cigarettes, uncomplicated; G89.29 Other chronic pain; I25.10 Atherosclerotic heart disease of native coronary artery without angina pectoris; J43.9 Emphysema, unspecified; K21.9 Gastro-esophageal reflux disease without esophagitis; Z20.822 Contact with and (suspected) exposure to COVID-19; Z23 Encounter for immunization; Z79.891 Long term (current) use of opiate analgesic; Z95.1 Presence of aortocoronary bypass graft; F41.9 Anxiety disorder, unspecified; M19.90 Unspecified osteoarthritis, unspecified site; Z88.8 Allergy status to other drugs, medicaments and biological substances; J42 Unspecified chronic bronchitis; I50.9 Heart failure, unspecified
CPT/HCPCS: 36415; 36600; 71045; 80048; 80053; 82550; 82805; 83605; 83735; 83880; 84484; 85025; 87040; 87426; 93005; 94618; 94640; 94760; 94799; 96365; 96375; J0456; J0696; J1100; J1940; J2920; J3490; J7060; U0003; U0005; 99285-25; G0378; J7626

== ENCOUNTER 2021-01-17 11:44 | Emergency (ER) | payer MEDICAID ==
[~2021-01-17] VITALS: Ht 154.9 cm; Wt 44.9 kg
[~2021-01-17 11:44] MED LIST changes: +DOXY100T PO; +POTA-121 PO; -POTA20TA4 PO
--- NOTE | 2021-01-17 13:43 | PHYS DOC ---
Past Medical History Past Medical History: Asthma, High Cholesterol, Hypertension Additional Past Medical Histor: SEASONAL ALLERGIES Past Surgical History: Other Additional Past Surgical Histo: OPEN HEART Smoking Status: Current Every Day Smoker Alcohol Use: None Drug Use: None General Adult EDM: Chief Complaint: COUGH HPI: HPI: Patient is a 65 year old female with significant smoking history, CAD, COPD who presents with 3 days of cough and wheezing. Also feels short of breath. Denies chest pain. Denies fever/chills. Received full Covid vaccination series of en-Gauge. No lower extremity edema/swelling. She has had poor appetite. Her son helped to translate for her, she refused to use the investment professional phone. They speak Georgian. Son states that every time he brings up tobacco cessation that that she cries. Review of Systems: Review of Systems: Constitutional: Denies fever or chills. [] Eyes: Denies change in visual acuity. [] HENT: Denies nasal congestion or sore throat. [] Respiratory: Cough, wheezing, shortness of breath [] Cardiovascular: Denies chest pain or edema. [] GI: Denies abdominal pain, nausea, vomiting, bloody stools or diarrhea. [] : Denies dysuria. [] Musculoskeletal: Denies back pain or joint pain. [] Integument: Denies rash. [] Neurologic: Denies headache, focal weakness or sensory changes. [] Endocrine: Denies polyuria or polydipsia. [] Lymphatic: Denies swollen glands. [] Psychiatric: Denies depression or anxiety. [] Heart Score: C/O Chest Pain: No Risk Factors: Risk Factors: DM, Current or recent (<one month) smoker, HTN, HLP, family history of CAD, obesity. Risk Scores: Score 0 - 3: 2.5% MACE over next 6 weeks - Discharge Home Score 4 - 6: 20.3% MACE over next 6 weeks - Admit for Clinical Observation Score 7 - 10: 72.7% MACE over next 6 weeks - Early Invasive Strategies Allergies: Allergies: Allergies Coded Allergies Type Severity Reaction Last Updated Verified lisinopril Allergy Intermediate 10/30/18 Yes simvastatin Allergy Intermediate 10/30/18 Yes Physical Exam: PE: Constitutional: Well developed, well nourished, no acute distress, non-toxic appearance. [] HENT: Normocephalic, atraumatic, bilateral external ears normal, oropharynx moist, no oral exudates, nose normal. [] Eyes: PERRLA, EOMI, conjunctiva normal, no discharge. [] Neck: Normal range of motion, no tenderness, supple, no stridor. [] Cardiovascular:Heart rate regular rhythm, no murmur [] Lungs & Thorax: Mild accessory usage. Normal respiratory rate. No distress. End expiratory wheezes diffusely. Nonfocal on exam. [] Abdomen: Bowel sounds normal, soft, no tenderness, no masses, no pulsatile masses. [] Skin: Warm, dry, no erythema, no rash. [] Back: No tenderness, no CVA tenderness. [] Extremities: No tenderness, no cyanosis, no clubbing, ROM intact, no edema. [] Neurologic: Alert and oriented X 3, normal motor function, normal sensory function, no focal deficits noted. [] Psychologic: Affect normal, judgement normal, mood normal. [] EKG: EKG: Sinus rhythm. Rate 57. No acute ischemic changes. Potential T wave inversion in lead III. [] Radiology/Procedures: Radiology/Procedures: [] Impression: [facility] [address] [place] [address] IMAGING REPORT Signed PATIENT: OUSMANE WANG ACCOUNT: [id number] : 1955 LOCATION: ER AGE: 65 SEX: F EXAM STATUS: REG ER ORD. PHYSICIAN: BRIGID RANGEL MD REASON: COPD, WHEEZES, SOB PROCEDURE: CHEST AP ONLY XR CHEST 1V CLINICAL INDICATIONS: Reason: COPD, WHEEZES, shortness of breath COMPARISON: December 18, 2020. Findings: Bilateral interstitial lung infiltrates or bronchitis are again evident. There has been improvement in the lung bases since the previous study. No new lung consolidation or pleural effusion or pneumothorax is evident. Sternotomy is evident. The heart size and mediastinum are stable. IMPRESSION: Chronic bilateral interstitial lung infiltrates or bronchitis is again evident. There has been improvement in the lung bases since the previous study. No new lung consolidation. Electronically signed by: Zofia Major MD (01/17/2021 2:11 PM) [id number] DICTATED and SIGNED BY: ZOFIA MAJOR MD DATE: 01/17/21 [id number] Course & Med Decision Making: Course & Med Decision Making Pertinent Labs and Imaging studies reviewed. (See chart for details) Patient is 65-year-old female with history of tobacco use, COPD, CAD who presents with 3 days of cough, wheezing, shortness of breath. On arrival is afebrile dynamically stable. Satting 95% on room air. She does have diffuse wheezes consistent with COPD exacerbation. I stressed the importance of tobacco cessation, which has been mentioned to the patient multiple times before. Also with complaints of poor appetite We will obtain EKG, CXR, BMP, CBC. 1342 hx and work up consistent with COPD exacerbation. Will Rx prednisone and doxycyline. Offered to refill albuterol, but patients states it does not help. 1454 Jomar Disclaimer: Jomar Disclaimer: This electronic medical record was generated, in whole or in part, using a voice recognition dictation system. Departure Departure Impression: Primary Impression: COPD exacerbation Disposition: HOME / SELF CARE / HOMELESS Condition: STABLE Referrals: NERI HAMILTON MD (PCP) Additional Instructions: Please pepper picker the prescriptions and take them as prescribed. Please stop smoking. This will only continue to get worse until you do. Please follow-up with your primary care doctor. You can return to the emergency department if you have high fevers, chills, or worsening shortness of breath. Scripts Doxycycline Hyclate (DOXYCYCLINE HYCLATE) 100 Mg Capsule 1 CAP PO BID for 7 Days, #14 CAP 0 Refills Prov: BRIGID RANGEL MD 01/17/21 Prednisone (PREDNISONE) 50 Mg Tablet 1 TAB PO DAILY, #5 TAB Prov: BRIGID RANGEL MD 01/17/21 BRIGID RANGEL MD Jan 17, 2021 13:43
--- NOTE | 2021-01-17 14:13 | RAD ---
XR CHEST 1V CLINICAL INDICATIONS: Reason: COPD, WHEEZES, shortness of breath COMPARISON: December 18, 2020. Findings: Bilateral interstitial lung infiltrates or bronchitis are again evident. There has been imp rovement in the lung bases since the previous study. No new lung consolidation or pleural effusion or pneumothorax is evident. Sternotomy is evident. The heart size and mediastinum are stable. IMPRESSION: Chronic bilateral interstitial lung infiltrates or bronchitis is again evident. There has been improvement in the lung bases since the previous study. No new lung consolidation. Electronically signed by: Waylon Major MD (01/17/2021 2:11 PM) [id number]
[2021-01-17 14:16] LABS: BASO % 1 % (0-3); EOS # 0.1 x10^3/uL (0.0-0.7); EOS % 3 % (0-3); HEMATOCRIT 37.6 % (36.0-47.0); HEMOGLOBIN 12.6 g/dL (12.0-15.5); LYMPH # 2.3 x10^3/uL (1.0-4.8); LYMPH % 42 % (24-48); MEAN CORPUSCULAR HEMOGLOBIN 29 pg (25-35); MEAN CORPUSCULAR HGB CONC 34 g/dL (31-37); MEAN CORPUSCULAR VOLUME 87 fL (79-100); MONO # 0.5 x10^3/uL (0.0-1.1); MONO % 9 % (0-9); NEUT # 2.5 x10^3/uL (1.8-7.7); NEUT % 45 % (31-73); PLATELET COUNT 204 x10^3/uL (140-400); RED BLOOD COUNT 4.34 x10^6/uL (3.50-5.40); WHITE BLOOD COUNT 5.5 x10^3/uL (4.0-11.0)
[2021-01-17 14:32] LABS: CALCIUM 8.4 mg/dL (8.5-10.1); CREATININE 0.8 mg/dL (0.6-1.0); GFR 72.4; POTASSIUM 4.1 mmol/L (3.5-5.1)
[2021-01-17] MEDS ORDERED: PRED50TA PO (15:02)
[2021-01-17] MEDS ORDERED: DOXY100C3 PO (15:02)
[2021-01-17 15:04] VITALS: BP 128/63
--- NOTE | 2021-01-17 15:38 | EKG ---
[facility] [address] [place] [address] Test Date: 2021-01-17 Test Time: 13:59:05 Pat Name: OUSMANE WANG Department: Room: Gender: F Moto Mix Operator: : 1955 Requested By: BRIGID RANGEL Order Number: [id number] Reading MD: Measurements Intervals Pound Rate: 57 P: 0 MI: 166 QRS: 41 QRSD: 76 T: 27 QT: 458 QTc: 445 Interpretive Statements SINUS RHYTHM NO SPECIFIC ECG ABNORMALITIES RI6.02 No previous ECG available for comparison
== END 2021-01-17 15:41 | disposition home or self-care (01) ==
LOC: ER 11:44
DX: J44.1 Chronic obstructive pulmonary disease with (acute) exacerbation (principal); Z20.822 Contact with and (suspected) exposure to COVID-19; I10 Essential (primary) hypertension; E78.00 Pure hypercholesterolemia, unspecified; F17.200 Nicotine dependence, unspecified, uncomplicated; I25.10 Atherosclerotic heart disease of native coronary artery without angina pectoris; Z88.8 Allergy status to other drugs, medicaments and biological substances; Z88.6 Allergy status to analgesic agent
CPT/HCPCS: 36415; 71045; 80048; 85025; 87426; 93005; 99285; U0003; U0005